=== PATIENT | female | born 1960 | race African-American/Black ===

== ENCOUNTER 2016-06-09 10:45 | Observation (INO) ==
[2016-06-09] MEDS ORDERED: 0.9 % Sodium Chloride 1,000 ML IVC ONE (11:02)
[2016-06-09] MEDS ORDERED: Folic Acid 1 MG in D5% in Water 50 ML IVPB STA (11:03)
[2016-06-09] MEDS ORDERED: Thiamine (B-1) 100 MG in D5% in Water 50 ML IVPB STA (11:03)
[2016-06-09 11:33] LABS: Eosinophils % 0.2 %; Hematocrit 29.4 % (35.3-44.9)
[2016-06-09 11:35] LABS: Basophils # 0.1 K/mcL (0.0-0.2); Immature Granulocytes % 0.6 % (0-4); Immature Platelets 11.3 % (1.1-6.1); Lymphocytes % 19.3 %; Mean Corpuscular Hemoglobin 36.1 pg (28.0-33.3); Mean Corpuscular Volume 106.1 fL (83.0-100.0); Mean Platelet Volume 12.1 fL (9.4-12.4); Monocytes # 0.8 K/mcL (0.0-1.3); Monocytes % 14.8 %; Neutrophils # 3.3 K/mcL (1.6-8.9); Nucleated Red Blood Cells 0.4 /100 WBC (0); Red Blood Count 2.77 M/mcL (3.82-4.97); Red Cell Distribution Width 14.1 % (11.5-14.5); Segmented Neutrophils % 64.1 %
[2016-06-09 11:39] LABS: INR 2.8; Prothrombin Time 31.2 Seconds (9.4-12.1)
[2016-06-09 11:42] LABS: Activated Partial Thrombo Time 42.7 Seconds (26.0-36.0)
[2016-06-09 11:49] LABS: Alanine Aminotransferase 39 Units/L (0-55); Albumin 2.1 g/dL (3.5-5.0); Albumin/Globulin Ratio 0.3 (1.1-2.2); Alkaline Phosphatase 116 Units/L (38-126); Aspartate Amino Transferase 116 Units/L (5-34); BUN/Creatinine Ratio 9 (6-26); Bilirubin,Indirect 3.9 mg/dL (0.0-1.2); Bilirubin,Total 7.9 mg/dL (0.2-1.2); Blood Urea Nitrogen 9 mg/dL (7-20); Calcium 8.7 mg/dL (8.6-10.8); Carbon Dioxide 22 mEq/L (19-29); Chloride 100 mEq/L (98-109); Globulin 6.3 g/dL (2.4-3.5); Glucose 115 mg/dL (70-99); Lipase 59 Units/L (8-78); Osmolality,Calculated 280 (280-300); Sodium 135 mEq/L (136-145); Total Protein 8.4 g/dL (6.0-8.3); eGFR For African Americans > 60 (> 60); eGFR For Non-African Americans 57 (> 60)
[2016-06-09 11:55] LABS: Platelet Count 53 K/mcL (140-400)
[2016-06-09 11:56] LABS: Platelet Estimate Decreased (Normal)
--- NOTE | 2016-06-09 12:00 | Emergency Department Note ---
Disposition Clinical Impression: Thrombocytopenia, Cholecystitis Liver cirrhosis Qualifiers: Hepatic cirrhosis type: alcoholic cirrhosis Ascites presence: with ascites Qualified Code(s): K70.31 - Alcoholic cirrhosis of liver with ascites Falls Qualifiers: Encounter type: initial encounter Qualified Code(s): W19.XXXA - Unspecified fall, initial encounter Cholelithiasis Qualifiers: Cholelithiasis location: gallbladder Cholecystitis presence: with cholecystitis Cholecystitis acuity: acute and chronic Biliary obstruction: with biliary obstruction Qualified Code(s): K80.13 - Calculus of gallbladder with acute and chronic cholecystitis with obstruction Disposition: Admitted As Inpatient Condition: Good Time of Disposition: 13:45 General Adult HPI - General Chief complaint: ED Fall Stated complaint: Gen weakness/falls Time Seen by Provider: 06/09/16 10:49 Source: patient, EMS Mode of arrival: EMS Limitations: no limitations Nursing Notes Reviewed: Yes Vital Signs Reviewed: Yes - History of Present Illness HPI Narrative: Patient presents emergency room with complaint of generalized malaise multiple falls injury to the abdomen and pain. Denies fevers chills nausea vomiting or diarrhea. Has a history of alcohol abuse and has been having increasing falls over the last several days. Onset (ago): day(s) Location: head, face, chest, back, abdomen Pain Severity: moderate Pain Scale: 9 Quality: aching, sharp Consistency: intermittent Improves with: nothing Worsens with: movement Associated symptoms: Reports: chest pain, fever/chills, loss of appetite, malaise, nausea/vomiting, weakness Treatments Prior to Arrival: none - Related Data Home Medications Medication Instructions Recorded Confirmed Vits #90/Iron Fum/FA 1 tab PO DAILY 09/29/15 06/09/16 [ Formula Tablet] Chlorhexidine Gluconate [Peridex] 15 ml MM TID 06/09/16 06/09/16 Lactulose [Enulose] 30 ml PO DAILY 06/09/16 06/09/16 Previous Rx's Medication Instructions Recorded Furosemide [Lasix] 40 mg PO DAILY 30 Days 10/01/15 Potassium Chloride 10 meq PO DAILY 30 Days 10/01/15 Propranolol [Inderal] 10 mg PO TID 30 Days 10/01/15 Rifaximin [Xifaxan] 400 mg PO BID 30 Days 10/01/15 Spironolactone [Aldactone] 50 mg PO DAILY 30 Days 10/01/15 Omeprazole Magnesium [Prilosec Otc] 40 mg PO BID 30 Days 10/04/15 Phytonadione [Mephyton] 5 mg PO DAILY #3 tablet 10/04/15 Allergies Allergy/AdvReac Type Severity Reaction Status Date / Time No Known Allergies Allergy Verified 09/29/15 15:44 All systems ED: reviewed and negative except as stated. Constitutional: Reports: fever, chills, weakness Cardiovascular: Denies: chest pain, palpitations, dyspnea on exertion Respiratory: Denies: dyspnea, wheezes Gastrointestinal: Reports: abdominal pain, nausea, vomiting. Denies: diarrhea Genitourinary: Denies: dysuria, frequency Musculoskeletal: Reports: back pain, neck pain, myalgia Neurological: Reports: headache Endocrine: Reports: fatigue Past Medical History - Past Medical History Attestation: Yes The following information was validated with the patient. Source: patient Medical history: Reports: cirrhosis, GERD, hepatitis, liver disease Surgical history: Reports: other (EGD and colonoscopy completed on 09/19/2015) Psychiatric history: Reports: no psych history - Social History Smoking Status: Current every day smoker Smokeless Tobacco Status: No Alcohol use: Reports: heavy Drug use: Reports: none Physical Exam - General Limitations: no limitations General appearance: alert - Head Head exam: atraumatic, normocephalic, normal inspection - Neck Neck exam: Present: normal inspection, full ROM, trachea midline - Chest Chest inspection: Present: normal inspection, symmetric chest wall rise. Absent : tenderness - Respiratory Respiratory exam: Present: normal lung sounds bilaterally. Absent: respiratory distress, wheezes, stridor, accessory muscle use - Cardiovascular Cardiovascular exam: Present: regular rate, normal rhythm, normal heart sounds - Abdominal Exam Abdominal exam: Present: soft, tenderness (Tenderness diffusely across the upper abdomen and the back bilaterally.). Absent: distention, guarding, rebound , rigidity, Watkins's sign, Rovsing's sign, tenderness at McBurney's Point - Extremities Exam Extremities exam: Present: normal inspection, full ROM, pedal edema (Lateral lower extremity edema to the knee.). Absent: tenderness, calf tenderness - Back Exam Back exam: Present: normal inspection, CVA tenderness (R), CVA tenderness (L) ( Bilateral CVA tenderness no signs of bruising or injury) - Neurological Exam Neurological exam: Present: alert, oriented X3, CN II-XII intact - Psychiatric Psychiatric exam: Present: depressed - Skin Skin exam: Present: warm, dry, intact, normal color Course Course Narrative: Patient seen and examined the time of arrival. See history of present illness. 55-year-old female presents by EMS today for complaint of multiple falls generalized weakness and difficulty with walking and abdominal pain. Patient is a known alcoholic who has been drinking since age of 17 also has hepatitis C and hepatitis B. Patient is showing signs of a staggering gait on presentation. She denies being intoxicated and time. Vital signs are reviewed and are stable. Concern is noted for alcohol-induced encephalopathy. Patient had ammonia basic labs includes urinalysis completed this point. CT of the head as well as mental facial bones along with the abdomen ordered this time. Fluid hydration given nausea medication given, thiamine and folic acid. 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 Physical exam head is atraumatic she has bruising to the left orbital area that is old. Pupils are equal round reactive to light. Oropharynx is pain no tenderness over the jaw or mastoid processes bilaterally. No midline tenderness to cervical thoracic or lumbar spine. No bruising on the posterior aspect of the back of the lower abdomen. Anterior aspect of the chest wall was evaluated this or deformity. Lungs are clear. Abdomen soft nontender nondistended. Moves all 4 extremities. Has pitting edema in the bilateral lower extremities. Disposition pending treatment course and evaluation. - Reevaluation(s) Reevaluation #1: Patient's labs reviewed. She is chronically anemic her platelet count is about half of what it was just recently. Patient has a INR of 2.8 secondary to her liver failure. Total bilirubin is elevated up to 7.[address] of the abdomen does confirm an obstructed stone with dilation and pericholecystic fluid buildup on the imaging study. This is consistent with possible cholecystitis. Patient was placed out to the on-call surgeon. We discussed and reviewed the patient's presentation. Dr. polo does not feel the patient is a good surgical candidate she would benefit more from a ercp to remove the stone. Patient otherwise has negative CT of the head and imaging of the chest. EKG shows sinus rhythm. Troponin other labs are normal. Patient this point will be admitted to the hospitalist for definitive management and course. IV antibiotics including Zosyn ordered and will be provided here in the emergency room. Ammonia level is normal. Thiamine and folate were also given. Patient stable and comfortable in the bed she agrees with the admission process and will evaluated here as an inpatient. Patient postop to the hospitalist at this time Time: 13:43 Reevaluation #2: Patient was reviewed with the hospitalist nurse practitioner Noemi. Review the patient's presentations in his medical history. No other recommendations this time. Admission process to be completed for appears to be nonsurgical cholecystitis along with liver failure and alcohol abuse. She will have CIWA protocol will be started from the hospital. Patient stable and resting comfortably otherwise. Time: 13:56 Vital Signs Temperature 99.2 F 06/09/16 10:48 Pulse Rate 95 06/09/16 10:48 Respiratory Rate 16 06/09/16 10:48 Blood Pressure 152/77 06/09/16 10:48 O2 Sat by Pulse Oximetry 100 06/09/16 10:48 Temperature 99.2 F 06/09/16 17:26 Pulse Rate 76 06/09/16 17:26 Respiratory Rate 14 06/09/16 17:26 Blood Pressure 150/81 06/09/16 17:26 O2 Sat by Pulse Oximetry 97 06/09/16 17:26 Oxygen Delivery Oxygen Delivery Room Air Medical Decision Making - MDM Narrative Medical decision making narrative: Frequent falls, weakness, hyperbilirubinemia, jaundice, cholecystitis with cholelithiasis - Medical Records Medical records reviewed: Yes I reviewed the patient's medical records. - Lab Data Lab results reviewed: Yes I reviewed the patient's lab results. Result diagrams: 06/09/16 11:24 06/09/16 11:24 Lab Results 06/09/16 06/09/16 06/09/16 Range/Units 11:24 11:24 11:24 WBC 5.1 (4.3-11.1) K/mcL RBC 2.77 L (3.82-4.97) M/mcL Hgb 10.0 L (11.5-15.4) g/dL Hct 29.4 L (35.3-44.9) % MCV 106.1 H (83.0-100.0) fL MCH 36.1 H (28.0-33.3) pg MCHC 34.0 (31.6-35.5) g/dL RDW 14.1 (11.5-14.5) % Plt Count 53 L (140-400) K/mcL MPV 12.1 (9.4-12.4) fL Immature Gran % 0.6 (0-4) % Seg Neutrophils % 64.1 % Lymphocytes % 19.3 % Monocytes % 14.8 % Eosinophils % 0.2 % Basophils % 1.0 % Neutrophils # 3.3 (1.6-8.9) K/mcL Lymphocytes # 1.0 (0.6-4.6) K/mcL Monocytes # 0.8 (0.0-1.3) K/mcL Eosinophils # 0.0 (0.0-0.6) K/mcL Basophils # 0.1 (0.0-0.2) K/mcL Nucleated RBCs/100 WBC 0.4 H (0) /100 WBC Platelet Estimate Decreased L (Normal) Immature Plt Fraction 11.3 H (1.1-6.1) % PT 31.2 H (9.4-12.1) Seconds INR 2.8 APTT 42.7 H (26.0-36.0) Seconds Sodium 135 L (136-145) mEq/L Potassium 3.0 L (3.5-4.5) mEq/L Chloride 100 (98-109) mEq/L Carbon Dioxide 22 (19-29) mEq/L BUN 9 (7-20) mg/dL Creatinine 1.01 (0.57-1.11) mg/dL Est GFR ( Amer) > 60 (> 60) Est GFR (Non-Af Amer) 57 L (> 60) BUN/Creatinine Ratio 9 (6-26) Glucose 115 H (70-99) mg/dL Calculated Osmolality 280 (280-300) Calcium 8.7 (8.6-10.8) mg/dL Total Bilirubin 7.9 H (0.2-1.2) mg/dL Direct Bilirubin 4.0 H (0.0-0.5) mg/dL Indirect Bilirubin 3.9 H (0.0-1.2) mg/dL AST 116 H (5-34) Units/L ALT 39 (0-55) Units/L Alkaline Phosphatase 116 (38-126) Units/L Ammonia (18-72) mcmol/L Troponin I (0-0.03) ng/mL B-Natriuretic Peptide (0-100) pg/mL Serum Total Protein 8.4 H (6.0-8.3) g/dL Albumin 2.1 L (3.5-5.0) g/dL Globulin 6.3 H (2.4-3.5) g/dL Albumin/Globulin Ratio 0.3 L (1.1-2.2) Lipase 59 (8-78) Units/L 06/09/16 06/09/16 06/09/16 Range/Units 11:24 11:24 11:24 WBC (4.3-11.1) K/mcL RBC (3.82-4.97) M/mcL Hgb (11.5-15.4) g/dL Hct (35.3-44.9) % MCV (83.0-100.0) fL MCH (28.0-33.3) pg MCHC (31.6-35.5) g/dL RDW (11.5-14.5) % Plt Count (140-400) K/mcL MPV (9.4-12.4) fL Immature Gran % (0-4) % Seg Neutrophils % % Lymphocytes % % Monocytes % % Eosinophils % % Basophils % % Neutrophils # (1.6-8.9) K/mcL Lymphocytes # (0.6-4.6) K/mcL Monocytes # (0.0-1.3) K/mcL Eosinophils # (0.0-0.6) K/mcL Basophils # (0.0-0.2) K/mcL Nucleated RBCs/100 WBC (0) /100 WBC Platelet Estimate (Normal) Immature Plt Fraction (1.1-6.1) % PT (9.4-12.1) Seconds INR APTT (26.0-36.0) Seconds Sodium (136-145) mEq/L Potassium (3.5-4.5) mEq/L Chloride (98-109) mEq/L Carbon Dioxide (19-29) mEq/L BUN (7-20) mg/dL Creatinine (0.57-1.11) mg/dL Est GFR ( Amer) (> 60) Est GFR (Non-Af Amer) (> 60) BUN/Creatinine Ratio (6-26) Glucose (70-99) mg/dL Calculated Osmolality (280-300) Calcium (8.6-10.8) mg/dL Total Bilirubin (0.2-1.2) mg/dL Direct Bilirubin (0.0-0.5) mg/dL Indirect Bilirubin (0.0-1.2) mg/dL AST (5-34) Units/L ALT (0-55) Units/L Alkaline Phosphatase (38-126) Units/L Ammonia 39 (18-72) mcmol/L Troponin I 0.03 (0-0.03) ng/mL B-Natriuretic Peptide 281 H (0-100) pg/mL Serum Total Protein (6.0-8.3) g/dL Albumin (3.5-5.0) g/dL Globulin (2.4-3.5) g/dL Albumin/Globulin Ratio (1.1-2.2) Lipase (8-78) Units/L - Radiology Data Radiology results reviewed: Yes I reviewed the patient's radiology results. CT of the head is negative for acute pathology chest x-ray stable. CT of the abdomen does confirm right upper quadrant inflammation pericholecystic fluid and inflammation with dilation and stone in the duct of the gallbladder. - EKG Data EKG #1 EKG attestation: Yes I reviewed and interpreted this EKG. EKG shows normal: sinus rhythm, axis, ST-T waves Rate: normal [place]/QRS: LBBB When compared to previous EKG there are: no significant changes Interpretation: no acute changes, unchanged when compared to prior tracing (date ) (09/28 ) Critical Care Time Critical Care Time: Yes Total Critical Care Time: 45 Attestation: Independent of procedures and medical intervention Attestation Statement - Attestation Attestation: I, Syed Guardado, examined this patient and my medical decision-making was reviewed with the TRAVELING NURSE/PA/Advanced Practice Nurse/Resident Physician. I agree with the documented findings, disposition and treatment plan as described except to the extent set forth below. 5-year-old female presents with concerns of right upper quadrant abdominal pain and right lateral chest pain. Patient has had multiple falls over the past couple weeks. She is a chronic alcoholic since age of 17. Patient states that she has had chronic jaundice. Denies fever, chills, chest pain, shortness of breath. Pain in the right upper quadrant is sharp, stabbing, worse with palpation and movement. On physical exam the patient has ecchymosis surrounding left periorbital area. When trying to ambulate from the stretcher to the bed patient is very unstable although she was able to place weight on bilateral lower extremities. Patient has significant elevation of her bilirubin. CT of the abdomen shows possible acute cholecystitis. Patient states that she has had issues with her gallbladder in the past however she was deemed to not be a surgical candidate. Resident spoke with Dr. Polo who for the patient be admitted to the hospitalist and states that she would more likely be a candidate for ERCP with stone removal. Patient will be admitted the hospital for further care and evaluation.
[2016-06-09] MEDS ORDERED: Piperacillin/Tazobactam 3.375 GM in D5% in Water (Mini-Bag+) 100 ML IVPB ONE (13:32)
[2016-06-09] MEDS ORDERED: Naloxone 0.4 MG/ML INJ IVP PRN (14:56)
[2016-06-09] MEDS ORDERED: *HR* LORazepam 2 MG/ML VIAL IVP PRN ×3 (14:56)
[2016-06-09] MEDS ORDERED: Potassium Chloride 40 MEQ, Lidocaine 1% 2 ML in D5% in Water 500 ML IVPB ONE (15:05)
--- NOTE | 2016-06-09 15:26 | Internal Med History&Physical ---
<Noemi Ch M - Last Filed: 06/09/16 15:54> Date of Encounter: 06/09/16 Time of Encounter: 15:21 Assessment and Plan (1) Cholecystitis Current visit: Yes Status: Acute Patient with RUQ pain. CT Abd/pelvis showed cholelithiasis and distention of the gallbladder with some thickening and pericholecystic fluid, acute cholecystitis should be considered. GI consulted, spoke with Dr. Mcconnell who requested MRCP MRCP ordered NPO except meds and ice chips. (2) ETOH abuse Current visit: No Status: Chronic Patient continues to drink beer daily, about 48 oz daily. She has cirrhosis, hepatic encephalopathy, ESLD, and continues to drink despite these consequences. Discussed quitting, patient interested, but not sure she can. Offered encouragement. [facility] protocol for alcohol withdrawal SWK consult (3) Hypokalemia Current visit: No Status: Acute Potassium of 3.0 40mEq of Potassium IVPB ordered recheck chemistry tomorrow. (4) Coagulopathy Current visit: No Status: Acute Patient with synthetic dysfunction from her ESLD, with thrombocytopenia, Plt of 53 and INR of 2.8. Patient denies any bloody stools, bloody urine or other bleeding episodes. Monitor for bleeding. Continue home dose of Mephyton. (5) Falls Current visit: Yes Status: Acute Patient with reported unsteady gait and falls. Reports genaralized weakness. cT of her head showed subcutaneous soft tissue swelling at left periorbital and premalar regions, no acute intracranial abnormality. Her unsteady gait and falls are likely sequela of her alcohol use and hepatic encephalopathy. Will get orthostatic vital signs. Qualifiers: Encounter type: initial encounter Qualified Code(s): W19.XXXA - Unspecified fall, initial encounter (6) Liver cirrhosis Current visit: Yes Status: Chronic Patient with Hep b, Hep C and aloholic cirrhosis, continues to drink daily. Sequela of ESLD evident with small ascites seen on CT, as well as coagulapathy wtih thrombocytopenia with Plt of 53, INR of 2.8. Current MELD score of 27. Continue Lactulose and Xifaxin for hepatic encephalopathy Continue spiranolactone and lasix for ascites, increase spiranolactone to 100mg and give lasix IVP. Continue Mephyton for coagulopathy. Qualifiers: Hepatic cirrhosis type: alcoholic cirrhosis Ascites presence: with ascites Qualified Code(s): K70.31 - Alcoholic cirrhosis of liver with ascites (7) Pleural effusion Current visit: Yes Status: Acute Patient complains of shortness of breath. CXR shows left pleural effusion. Increase diuretics with Lasix 40mg IVP BID and spiranolactone 100mg. Titrate O2 to maintain oxygen saturation > 92%. (8) Tobacco abuse Current visit: No Status: Acute Patient smokes 1 pack per week. Discussed smoking cessation. Not interested in quitting at this time. (9) DVT prophylaxis Current visit: No Status: Acute ambulate with assistance anti-embolic stockings Patient with INR of 2.8 due to ESLD induced coagulopathy. Pharmacologic prophylaxis is contraindicated. Internal Medicine - H&P: HPI Chief complaint: RUQ pain, falls Admitted From: Emergency Dept Plans for Post Hospital Care: Home History of present illness: Ms. Scott is a 55 year old female with alcoholic cirrhosis, hepatitis B and C, acid reflux, who presented to the emergency department today with complaints of weakness, falls, and right upper quadrant pain. Patient reports that she passed out and fell in the street on Thursday and has bruises as a result of that. She reports she has been feeling weak lately. Her right upper quadrant started hurting on and is planned progressively getting worse, she describes the pain as sharp, and stabbing, and aching. She reports lightheadedness and dizziness, as well as some shortness of breath. Denies any headache, chest pain, palpitations, fever. She reports occasional chills and sweats, she reports diarrhea yesterday, though she does take lactulose for her hepatic encephalopathy. Evaluation in the emergency department was significant for thrombocytopenia with platelets of 53, hyperkalemia with potassium of 3.0, elevated coags including INR of 2.8, elevated bilirubin of 7.9, which is consistent with previous baseline in January. Chest x-ray showed left pleural effusion with atelectasis and/or infiltrate. To the head showed subcutaneous soft tissue swelling at the left periorbital and pre-malar regions but no acute intracranial abnormalities. CT of abdomen and pelvis show cholelithiasis and distention of the gallbladder with some thickening and pericholecystic fluid, acute cholecystitis should be considered. Surgery was consult it but felt patient was too high risk and not a surgical candidate. Exam, patient has scleral icterus, is alert and oriented, in no acute distress. Heart has regular rate and rhythm. Lungs are clear bilaterally with diminished sounds in the left base. Abdomen is acutely tender in the right upper quadrant. Past Med Surg Social Fam HX - Past Medical History Medical history: cirrhosis, GERD, hepatitis, liver disease Psychiatric history: no psych history - Past Surgical History Surgical History: other (EGD and colonoscopy completed on 09/19/2015) - Social History Smoking Status: Current every day smoker Smokeless Tobacco Status: No Alcohol use: heavy Drug use: none - Family History Mother Living Status: Still Living Hx Family Cardiac Disorders: Yes Hx Family Cancer: Yes Hx Family Endocrine Disorder: Yes (diabetes) Father Living Status: Still Living Hx Family Cancer: Yes Internal Medicine - H&P: Meds Vits #90/Iron Fum/FA [ Formula Tablet] 1 tab PO DAILY 09/29/15 [History] Furosemide [Lasix] 40 mg PO DAILY 30 Days 10/01/15 [Rx] Potassium Chloride 10 meq PO DAILY 30 Days 10/01/15 [Rx] Propranolol [Inderal] 10 mg PO TID 30 Days 10/01/15 [Rx] Rifaximin [Xifaxan] 400 mg PO BID 30 Days 10/01/15 [Rx] Spironolactone [Aldactone] 50 mg PO DAILY 30 Days 10/01/15 [Rx] Omeprazole Magnesium [Prilosec Otc] 40 mg PO BID 30 Days 10/04/15 [Rx] Phytonadione [Mephyton] 5 mg PO DAILY #3 tablet 10/04/15 [Rx] Chlorhexidine Gluconate [Peridex] 15 ml MM TID 06/09/16 [History] Lactulose [Enulose] 30 ml PO DAILY 06/09/16 [History] Allergies No Known Allergies Allergy (Verified 09/29/15 15:44) All Systems PM: A 10-system review of systems was performed and is negative for pertinent findings except as documented above in the HPI. - Constitutional Constitutional: chills, night sweats, weakness, no fever(s) - EENT Eyes: no change in vision, no discharge, no pain, no photophobia Ears: no ear discharge, no ear pain, no tinnitus Nose, mouth and throat: no dysphagia, no nasal discharge, no neck pain, no sore throat - Cardiovascular Cardiovascular ROS IM: dyspnea, lightheadedness, no chest pain, no diaphoresis, no palpitations, no syncope - Respiratory Respiratory: dyspnea, no cough, no wheezing, no excessive phlegm production - Gastrointestinal Gastrointestinal: abdominal pain, diarrhea, no hematemesis, no hematochezia, no melena, no nausea, no vomiting - Genitourinary Genitourinary: no change in urinary stream, no dysuria, no flank pain, no hematuria - Musculoskeletal Musculoskeletal ROS IM: no numbness, no tingling - Integumentary Integumentary IM: no rash, no unusual bruising - Neurological Neurological ROS: no confusion, no convulsions, no focal weakness, no numbness, no tingling, no tremor(s) - Hematologic/Lymphatic Hematologic/Lymphatic: easy bleeding, easy bruising - Constitutional Vitals: Temp Pulse Resp BP Pulse Ox 99.2 F 51 16 140/71 98 06/09/16 10:48 06/09/16 15:06 06/09/16 15:07 06/09/16 15:07 06/09/16 15:06 General appearance: Present: A&O X 3, pleasant, no acute distress - Head Head exam: Present: normocephalic - Eye Eye exam: Present: periorbital swelling (left), periorbital tenderness (left), PERRL, scleral icterus, conjuntiva pink Pupils: Present: PERRL Additional comments: Left periorbital ecchymosis - Neck Neck exam general surgery: Present: supple, trachea midline. Absent: lymphadenopathy - Respiratory Respiratory exam: Present: CTAB. Absent: accessory muscle use, rales, rhonchi, wheezes - Cardiovascular Cardiovascular exam: Present: RRR, +S1, +S2, systolic murmur. Absent: diastolic murmur, gallop, rubs - GI/Abdominal GI/Abdominal exam: Present: normal bowel sounds, soft, tenderness (RUQ), no peritoneal signs. Absent: distended - Extremities Exam Extremities exam: Present: pedal edema (+1 BLE edema), warm, radial pulses palpable and symetrical. Absent: calf tenderness, cyanotic - Neurological Exam Neurological exam: Present: CN II-XII intact, oriented X3, no focal deficits. Absent: facial droop, speech deficit - Skin Skin exam: Present: dry, intact Internal Med - H&P Results - Labs CBC & Chem 7: 06/09/16 11:24 06/09/16 11:24 Labs: All Lab Results (24 Hours) 06/09/16 06/09/16 06/09/16 Range/Units 11:24 11:24 11:24 WBC 5.1 (4.3-11.1) K/mcL RBC 2.77 L (3.82-4.97) M/mcL Hgb 10.0 L (11.5-15.4) g/dL Hct 29.4 L (35.3-44.9) % MCV 106.1 H (83.0-100.0) fL MCH 36.1 H (28.0-33.3) pg MCHC 34.0 (31.6-35.5) g/dL RDW 14.1 (11.5-14.5) % Plt Count 53 L (140-400) K/mcL MPV 12.1 (9.4-12.4) fL Immature Gran % 0.6 (0-4) % Seg Neutrophils % 64.1 % Lymphocytes % 19.3 % Monocytes % 14.8 % Eosinophils % 0.2 % Basophils % 1.0 % Neutrophils # 3.3 (1.6-8.9) K/mcL Lymphocytes # 1.0 (0.6-4.6) K/mcL Monocytes # 0.8 (0.0-1.3) K/mcL Eosinophils # 0.0 (0.0-0.6) K/mcL Basophils # 0.1 (0.0-0.2) K/mcL Nucleated RBCs/100 WBC 0.4 H (0) /100 WBC Platelet Estimate Decreased L (Normal) Immature Plt Fraction 11.3 H (1.1-6.1) % PT 31.2 H (9.4-12.1) Seconds INR 2.8 APTT 42.7 H (26.0-36.0) Seconds Sodium 135 L (136-145) mEq/L Potassium 3.0 L (3.5-4.5) mEq/L Chloride 100 (98-109) mEq/L Carbon Dioxide 22 (19-29) mEq/L BUN 9 (7-20) mg/dL Creatinine 1.01 (0.57-1.11) mg/dL Est GFR ( Amer) > 60 (> 60) Est GFR (Non-Af Amer) 57 L (> 60) BUN/Creatinine Ratio 9 (6-26) Glucose 115 H (70-99) mg/dL Calculated Osmolality 280 (280-300) Calcium 8.7 (8.6-10.8) mg/dL Total Bilirubin 7.9 H (0.2-1.2) mg/dL Direct Bilirubin 4.0 H (0.0-0.5) mg/dL Indirect Bilirubin 3.9 H (0.0-1.2) mg/dL AST 116 H (5-34) Units/L ALT 39 (0-55) Units/L Alkaline Phosphatase 116 (38-126) Units/L Ammonia (18-72) mcmol/L Troponin I (0-0.03) ng/mL B-Natriuretic Peptide (0-100) pg/mL Serum Total Protein 8.4 H (6.0-8.3) g/dL Albumin 2.1 L (3.5-5.0) g/dL Globulin 6.3 H (2.4-3.5) g/dL Albumin/Globulin Ratio 0.3 L (1.1-2.2) Lipase 59 (8-78) Units/L 06/09/16 06/09/16 06/09/16 Range/Units 11:24 11:24 11:24 WBC (4.3-11.1) K/mcL RBC (3.82-4.97) M/mcL Hgb (11.5-15.4) g/dL Hct (35.3-44.9) % MCV (83.0-100.0) fL MCH (28.0-33.3) pg MCHC (31.6-35.5) g/dL RDW (11.5-14.5) % Plt Count (140-400) K/mcL MPV (9.4-12.4) fL Immature Gran % (0-4) % Seg Neutrophils % % Lymphocytes % % Monocytes % % Eosinophils % % Basophils % % Neutrophils # (1.6-8.9) K/mcL Lymphocytes # (0.6-4.6) K/mcL Monocytes # (0.0-1.3) K/mcL Eosinophils # (0.0-0.6) K/mcL Basophils # (0.0-0.2) K/mcL Nucleated RBCs/100 WBC (0) /100 WBC Platelet Estimate (Normal) Immature Plt Fraction (1.1-6.1) % PT (9.4-12.1) Seconds INR APTT (26.0-36.0) Seconds Sodium (136-145) mEq/L Potassium (3.5-4.5) mEq/L Chloride (98-109) mEq/L Carbon Dioxide (19-29) mEq/L BUN (7-20) mg/dL Creatinine (0.57-1.11) mg/dL Est GFR ( Amer) (> 60) Est GFR (Non-Af Amer) (> 60) BUN/Creatinine Ratio (6-26) Glucose (70-99) mg/dL Calculated Osmolality (280-300) Calcium (8.6-10.8) mg/dL Total Bilirubin (0.2-1.2) mg/dL Direct Bilirubin (0.0-0.5) mg/dL Indirect Bilirubin (0.0-1.2) mg/dL AST (5-34) Units/L ALT (0-55) Units/L Alkaline Phosphatase (38-126) Units/L Ammonia 39 (18-72) mcmol/L Troponin I 0.03 (0-0.03) ng/mL B-Natriuretic Peptide 281 H (0-100) pg/mL Serum Total Protein (6.0-8.3) g/dL Albumin (3.5-5.0) g/dL Globulin (2.4-3.5) g/dL Albumin/Globulin Ratio (1.1-2.2) Lipase (8-78) Units/L - Diagnostic Studies CT scan - abdomen Additional comments: Abdomen/Pelvis CT 06/09/16 11:25 IMPRESSION: 1. No evidence of major organ injury or active bleeding. 2. Small left pleural effusion and left lower lobe atelectatic changes. 3. Liver cirrhosis and nodularity but no focal disease. 4. Cholelithiasis and distention of the gallbladder with some thickening and pericholecystic fluid. Acute cholecystitis should be considered. 5. Ascites mostly in the pelvis which is relatively mild. D/ / 06/09/2016 13:24:23 Leti Cosme MD / analy Interpreting Provider: Leti Cosme MD CT scan - head Additional comments: Head CT 06/09/16 11:03 IMPRESSION: Subcutaneous soft tissue swelling at the left periorbital and left premalar regions. No acute intracranial abnormality. Minimal parenchymal volume loss. Minimal chronic microvascular disease. D/ / Grant Chase MD / Grant Chase MD Interpreting Provider: Grant Chase MD Chest x-ray Additional comments: Chest X-Ray 06/09/16 12:18 IMPRESSION: 1. Left pleural effusion with associated atelectasis and/or infiltrate. D/ / Jaquan Gunderson MD / Jaquan Gunderson MD Interpreting Provider: Jaquan Gunderson MD <Rosales Momin T - Last Filed: 06/09/16 17:27> Date of Encounter: 06/09/16 Internal Medicine - H&P: HPI History of present illness: Ms. Scott is a 55 year old female All Systems PM: A 10-system review of systems was performed and is negative for pertinent findings except as documented above in the HPI. - Constitutional Vitals: Temp Pulse Resp BP Pulse Ox 99.2 F 77 16 136/72 99 06/09/16 10:48 06/09/16 16:46 06/09/16 16:46 06/09/16 16:46 06/09/16 16:46 Internal Med - H&P Results - Labs CBC & Chem 7: 06/09/16 11:24 06/09/16 11:24 - Attending Attestation Seen, EMR reviewed and plan of care discussed with ADRIANA Oliva 55 F Patient with Hep b, Hep C and decompensated alcoholic cirrhosis with portal HTN , coagulopathy, continues to drink daily. She presented with RUQ pain and recurrent falls Exam reveals chronically ill-looking, jaundiced, pale, disheveled, with orbital ecchymoses that is resolving, abdomen with RUQ tenderness, no murphys. No leg edema Labs and Imaging significant for hyperbilirubinemia, INR 2.8, hypokalemia, Hb at baseline, Pancytopenia, CXR with L pleural effusion, Abd CT with probable acute cholecystitis Assessment/Plan: Acute cholecystitis, alcohol abuse, ESLD with MELD score of 21 , Coagulopathy , Hypokalemia, Pleural effusion Increase diuretics, Obtain MRCP, consult GI, replace K, Start on Zosyn, CIWA protocol, continue daily Vitamin K, no current evidence of bleeding High risk patient with poor prognosis, poor surgical candidate Rest of details as in ADRIANA Oliva's documentation
[2016-06-09] MEDS: Lactulose Oral Soln 20 GM/30 ML UDC PO SCH (18:31)
[2016-06-09] MEDS: Prenatal Vit/FA 1 EACH TABLET PO SCH (18:31)
[2016-06-09] MEDS: *HR* Phytonadione 5 MG TABLET PO SCH (18:33)
[2016-06-09] MEDS: Furosemide 40 MG/4 ML VIAL IVP SCH (21:29)
[2016-06-10 05:45] LABS: INR 3.2; Prothrombin Time 35.8 Seconds (9.4-12.1)
[2016-06-10 05:48] LABS: Activated Partial Thrombo Time 49.5 Seconds (26.0-36.0)
[2016-06-10 05:56] LABS: Immature Granulocytes % 0.5 % (0-4); Mean Corpuscular Volume 105.4 fL (83.0-100.0)
[2016-06-10 05:57] LABS: Basophils # 0.1 K/mcL (0.0-0.2); Basophils % 0.9 %; Eosinophils # 0.1 K/mcL (0.0-0.6); Eosinophils % 0.8 %; Hematocrit 25.3 % (35.3-44.9); Hemoglobin 8.7 g/dL (11.5-15.4); Immature Platelets 12.1 % (1.1-6.1); Lymphocytes # 1.8 K/mcL (0.6-4.6); Mean Corpuscular HGB Conc 34.4 g/dL (31.6-35.5); Mean Corpuscular Hemoglobin 36.3 pg (28.0-33.3); Mean Platelet Volume 12.3 fL (9.4-12.4); Monocytes # 1.2 K/mcL (0.0-1.3); Monocytes % 18.7 %; Neutrophils # 3.2 K/mcL (1.6-8.9); Nucleated Red Blood Cells 0.5 /100 WBC (0); Red Cell Distribution Width 14.3 % (11.5-14.5); Segmented Neutrophils % 51.1 %
[2016-06-10 05:58] LABS: Platelet Count 49 K/mcL (140-400)
[2016-06-10 06:04] LABS: BUN/Creatinine Ratio 11 (6-26); Blood Urea Nitrogen 11 mg/dL (7-20); Calcium 8.1 mg/dL (8.6-10.8); Carbon Dioxide 22 mEq/L (19-29); Chloride 103 mEq/L (98-109); Glucose 80 mg/dL (70-99); Magnesium < 0.7 mg/dL (1.6-2.6); Osmolality,Calculated 278 (280-300); Phosphorous 2.1 mg/dL (2.3-4.7); Potassium 2.9 mEq/L (3.5-4.5); Sodium 135 mEq/L (136-145); eGFR For African Americans > 60 (> 60); eGFR For Non-African Americans 59 (> 60)
[2016-06-10 06:56] LABS: Platelet Estimate Decreased (Normal); Polychromasia 1+ (Not Present)
[2016-06-10] MEDS ORDERED: Magnesium Sulfate 2 GM in D5% in Water 100 ML IVPB STA (07:36)
[2016-06-10] MEDS: *HR* Phytonadione 5 MG TABLET PO SCH (08:32)
[2016-06-10] MEDS: Prenatal Vit/FA 1 EACH TABLET PO SCH (08:32)
[2016-06-10] MEDS: Lactulose Oral Soln 20 GM/30 ML UDC PO SCH ×3 (08:33→22:30)
[2016-06-10] MEDS: Furosemide 40 MG/4 ML VIAL IVP SCH (08:33)
[2016-06-10] MEDS: Pantoprazole 40 MG VIAL IVP SCH (08:33)
--- NOTE | 2016-06-10 09:13 | Gastroenterology Consult Note ---
<Belinda Inman - Last Filed: 06/10/16 11:20> Date of Encounter: 06/10/16 Time of Encounter: 10:45 - Assessment and plan (1) Alcoholic cirrhosis of liver with ascites Current Visit: Yes Status: Chronic Assessment and plan: MELD Na 28, MELD original 27, Edwin-Ramachandran Class C, discriminant function 116.9. Patient with advanced liver disease, continues to drink, underlying Hep C virus (genotype 1a/1b, viral load < 6 mil) R/O underlying infection (UA and blood cultures x 2), if negative - patient will require steroid therapy. Continue diuretics. Small amount of ascites noted on imaging, no evidence of SBP, vital signs stable, normal WBC. Small R/L pleural effusions noted on imaging. No lesions on imaging, needs mayra of afp. Last EGD negative for varices in 08/2015. Significant hyperbilirubinemia - no evidence of dilated CBD or intrahepatic/ extrahepatic dilation. Likely 2ndary to cirrhosis. (2) Hepatic encephalopathy Current Visit: Yes Status: Chronic Assessment and plan: Increase rifaximin to 400 mg po tid during hospital stay (OTPT dosage should be 550 mg po bid), titrate lactulose to 2-4 BMs daily. Check zinc, supplement if necessary. (3) Pleural effusion Current Visit: Yes Status: Acute Assessment and plan: On diuretics, continue to monitor. (4) Coagulopathy Current Visit: No Status: Chronic Assessment and plan: Patient has received 2 units FFP and is on oral vitamin K supplement (5 mg po daily) Plts < 50 (5) Hepatitis C Current Visit: Yes Status: Chronic Assessment and plan: genotype 1a/1b; viral load < 6 mil (08/2015) Qualifiers: Viral hepatitis chronicity: chronic Hepatic coma status: without hepatic coma Qualified Code(s): B18.2 - Chronic viral hepatitis C (6) Abdominal pain Current Visit: Yes Status: Acute Assessment and plan: epigastric and RUQ abd pain apparent since her fall, prior to that she denies discomfort. Evidence of gallstones on imaging, no evidence of obstruction on CT or MRI, no biliary dilation. Qualifiers: Abdominal location: epigastric Qualified Code(s): R10.13 - Epigastric pain - Time Spent With Patient Total time spent is greater than 50% in coordination of care (as documented) at patient's floor/unit and/or counseling patient: less than 15 minutes GI History of Present Illness - Data of Consult Patient: known to practice within the last 3 years Consult date: 06/10/16 Requesting Physician: Jay Mcclain MD - Consult Narrative Reason for consult: Cirrhosis History of present illness: Ms. Scott is a 55 year old female with alcoholic cirrhosis, chronic hepatitis C, acid reflux, who presented to the emergency department yesterday with complaints of weakness, falls, and right upper quadrant pain. Patient reports that she passed out and fell in the street on Thursday and has bruises as a result of that. She reports she has been feeling weak lately. Her right upper quadrant started hurting on and is progressively getting worse, she describes the pain as sharp, and stabbing, and aching. She reports lightheadedness and dizziness, as well as some shortness of breath. Denies any headache, chest pain, palpitations, fever. She reports occasional chills and sweats, she reports diarrhea yesterday, though she does take lactulose for her hepatic encephalopathy and moves her bowel up to 6x daily. Chest x-ray showed left pleural effusion with atelectasis and/or infiltrate. To the head showed subcutaneous soft tissue swelling at the left periorbital and pre-malar regions but no acute intracranial abnormalities. CT of abdomen and pelvis show cholelithiasis and distention of the gallbladder with some thickening and pericholecystic fluid, acute cholecystitis should be considered, mild ascites. Surgery was consulted but felt patient was too high risk and not a surgical candidate. Patient has been drinking etoh for many years, she states she has ' cut back' in recent months to 2-4 beers 3x a week. She complains of feeling very wobbly and multiple falls in recent weeks/months. She denied increase in acid reflux symptoms, N/V or difficulty swallowing. Denies black stool or BRBPR. Vital signs are currently stable. Colonoscopy: 08/2015 - [facility] - tubular adenoma, repeat due 2020 EGD: 08/2015 - [facility] - wnl Past Med Surg Social Fam HX - Past Medical History Medical history: cirrhosis, GERD, hepatitis, liver disease Psychiatric history: no psych history - Past Surgical History Surgical History: other - Social History Smoking Status: Current every day smoker Smokeless Tobacco Status: No Alcohol use: heavy Drug use: none - Family History Mother Living Status: Still Living Hx Family Cardiac Disorders: Yes Hx Family Cancer: Yes Hx Family Endocrine Disorder: Yes (diabetes) Father Living Status: Still Living Hx Family Cancer: Yes - Gastrointestinal NSAID use: None Anticoagulation Use: None Number of BM Per Day: 2-6 Gastrointestinal: Present: abdominal pain - Constitutional Constitutional: anorexia, fatigue - EENT Eyes: Yellow Discoloration Ears: Present: as per HPI Additional Comment: mouth sore due to dental abscess/missing teeth - Cardiovascular Cardiovascular ROS: Present: as per HPI - Respiratory Respiratory IM: Present: dyspnea - Neurological ROS Neurological GI: Present: frequent falls, weakness - Hematologic/Lymphatic Hematologic/Lymphatic pediatric: Present: as per HPI - Musculoskeletal Musculoskeletal ROS GI: Present: as per HPI - Integumentary Integumentary GI: Present: as per HPI - Psychiatric ROS Psychiatric GI: Present: as per HPI - Endocrine Endocrine IM: Present: as per HPI - Constitutional Vitals: Temp Pulse Resp BP Pulse Ox 98.8 F 75 16 130/69 93 06/10/16 06:38 06/10/16 06:38 06/10/16 06:38 06/10/16 06:38 06/10/16 06:38 General appearance: Present: cooperative, mild distress, A&O X 3, answers questions appropriately - Head Additional comments: L orbital contusion noted. - Eye Eye exam: Present: periorbital swelling, scleral icterus - ENT ENT exam: Present: mucous membranes moist - Neck Neck exam general surgery: Present: normal inspection, trachea midline - Respiratory Respiratory exam: Present: CTAB - Cardiovascular Cardiovascular exam: Present: RRR, +S1, +S2 - GI/Abdominal GI/Abdominal exam: Present: soft, tenderness, no peritoneal signs Additional comments: epigastric/RUQ abd tenderness with light palpation; no visible contusion in this region. Imaging was negative. - Rectal Rectal exam: Present: deferred - Extremities Exam Extremities exam: Present: pedal edema - Neurological Exam Neurological exam: Present: altered Additional comments: asterixis apparent - Psychiatric Psychiatric exam: Present: normal affect, normal mood - Skin Skin exam: Present: dry, intact, normal color, warm Results - Labs CBC & Chem 7: 06/10/16 04:54 06/10/16 04:54 Labs: Last Result Calcium 8.1 mg/dL (8.6-10.8) L 06/10/16 04:54 Troponin I 0.03 ng/mL (0-0.03) 06/09/16 11:24 Entire Visit Hgb 8.7 g/dL (11.5-15.4) L 06/10/16 04:54 Hct 25.3 % (35.3-44.9) L 06/10/16 04:54 PT 35.8 Seconds (9.4-12.1) H 06/10/16 04:54 Total Bilirubin 7.9 mg/dL (0.2-1.2) H 06/09/16 11:24 AST 116 Units/L (5-34) H 06/09/16 11:24 ALT 39 Units/L (0-55) 06/09/16 11:24 Ammonia 39 mcmol/L (18-72) 06/09/16 11:24 Lipase 59 Units/L (8-78) 06/09/16 11:24 - ABG ABG results: PT/INR, D-dimer PT 35.8 Seconds (9.4-12.1) H 06/10/16 04:54 - Impressions Impressions Abdomen MRI 06/09/16 15:30 IMPRESSION: The study is at least moderately low limited by motion artifact. A tiny right and small left pleural effusion. Cholelithiasis. The visualized biliary ducts are normal in caliber without filling defect. The visualized D/ / Beatrice Babb Cha, MD / Beatrice Babb Cha, MD Interpreting Provider: Beatrice Babb Cha, MD Consult Discharge Plan - Plan Referrals: Sai Rivas MD [Primary Care Provider] - <Pancho Mcconnell - Last Filed: 06/10/16 17:38> Date of Encounter: 06/10/16 Time of Encounter: 18:00 - Time Spent With Patient Total time spent is greater than 50% in coordination of care (as documented) at patient's floor/unit and/or counseling patient: GI History of Present Illness - Data of Consult Requesting Physician: Breanne Fallon - Consult Narrative History of present illness: Ms. Scott is a 55 year old female - Constitutional Vitals: Temp Pulse Resp BP Pulse Ox 98.1 F 80 16 122/79 96 06/10/16 14:29 06/10/16 14:29 06/10/16 14:29 06/10/16 14:29 06/10/16 14:29 Results - Labs CBC & Chem 7: 06/10/16 04:54 06/10/16 15:53 Labs: Last Result Calcium 8.1 mg/dL (8.6-10.8) L 06/10/16 04:54 Troponin I 0.03 ng/mL (0-0.03) 06/09/16 11:24 Entire Visit Hgb 8.7 g/dL (11.5-15.4) L 06/10/16 04:54 Hct 25.3 % (35.3-44.9) L 06/10/16 04:54 PT 35.8 Seconds (9.4-12.1) H 06/10/16 04:54 Total Bilirubin 7.3 mg/dL (0.2-1.2) H 06/10/16 04:54 AST 96 Units/L (5-34) H 06/10/16 04:54 ALT 35 Units/L (0-55) 06/10/16 04:54 Ammonia 39 mcmol/L (18-72) 06/09/16 11:24 Lipase 59 Units/L (8-78) 06/09/16 11:24 - ABG ABG results: PT/INR, D-dimer PT 35.8 Seconds (9.4-12.1) H 06/10/16 04:54 - Impressions Impressions Abdomen MRI 06/09/16 15:30 IMPRESSION: The study is at least moderately low limited by motion artifact. A tiny right and small left pleural effusion. Cholelithiasis. The visualized biliary ducts are normal in caliber without filling defect. The visualized D/ / Beatrice Babb Cha, MD / Beatrice Babb Cha, MD Interpreting Provider: Beatrice Babb Cha, MD - Attending Attestation I examined this patient and my medical decision-making was reviewed with the [employer]/PA/Advanced Practice Nurse/Resident Physician. I agree with the documented findings, disposition and treatment plan as described except to the extent set forth below. Pt with poss ALD doubt acute cholecystitis, r/o infection and if negative then steroids
[2016-06-10] MEDS ORDERED: Magnesium Sulfate 1 GM in D5% in Water 100 ML IVPB ONE ×2 (12:00→18:37)
[2016-06-10 12:20] LABS: Alanine Aminotransferase 35 Units/L (0-55); Albumin/Globulin Ratio 0.4 (1.1-2.2); Alkaline Phosphatase 89 Units/L (38-126); Aspartate Amino Transferase 96 Units/L (5-34); Bilirubin,Direct 3.8 mg/dL (0.0-0.5); Bilirubin,Indirect 3.5 mg/dL (0.0-1.2); Bilirubin,Total 7.3 mg/dL (0.2-1.2); Globulin 5.2 g/dL (2.4-3.5); Total Protein 7.1 g/dL (6.0-8.3)
[2016-06-10 12:21] LABS: Albumin 1.9 g/dL (3.5-5.0)
[2016-06-10 16:05] LABS: Magnesium 1.1 mg/dL (1.6-2.6); Potassium 3.1 mEq/L (3.5-4.5)
--- NOTE | 2016-06-10 16:47 | Palliative - Consult Note ---
Date of Encounter: 06/10/16 Time of Encounter: 16:27 - Assessment and Plan (1) Goals of care, counseling/discussion Current Visit: Yes Status: Acute Assessment and plan: Briefly discussed goals of care with the patient. She was not engaged in conversation and had very poor eye contact. She did indicate that she would want her mother, Polina Cisse to serve as her emergency contact/healthcare power of assistant city attorney. We discussed CODE STATUS to the extent that the patient would allow. At this time, she is to remain a full code. The palliative care team will follow up at a later date as the patient was reluctantly interactive during this timeframe. Social service is following for discharge needs. The palliative care team will follow. (2) Acute hepatic encephalopathy Current Visit: No Status: Acute Assessment and plan: Lactulose at home dose. (3) Liver cirrhosis Current Visit: Yes Status: Chronic Assessment and plan: GI on board Qualifiers: Hepatic cirrhosis type: alcoholic cirrhosis Ascites presence: with ascites Qualified Code(s): K70.31 - Alcoholic cirrhosis of liver with ascites (4) Cholelithiasis Current Visit: Yes Status: Acute Assessment and plan: GI on board Qualifiers: Cholelithiasis location: gallbladder Cholecystitis presence: with cholecystitis Cholecystitis acuity: acute and chronic Biliary obstruction: with biliary obstruction Qualified Code(s): K80.13 - Calculus of gallbladder with acute and chronic cholecystitis with obstruction (5) ETOH abuse Current Visit: No Status: Chronic Assessment and plan: CIWA protocol in place. Palliative-CN HPI - Data of Consult Patient: new to practice Consult date: 06/10/16 Requesting Physician: Jay Mcclain MD Primary Care Provider: Sai Rivas MD - Consult Narrative Palliative Care/Comfort Measures: Palliative care Reason for consult: Goals of care History of present illness: Ms. Scott is a 55 year old female presenting to [facility] with complaints of right upper quadrant pain, weakness, falls. The patient has known cirrhosis with hepatitis C. Workup in the emergency department revealed cholecystitis. She was admitted and a GI consult was placed. There were plans for an MRCP, but the patient's INR has been elevated due to her end-stage liver disease. Overall, she reports just feeling weak and tired. 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 Ms. Scott was withdrawn during the consultation and very drowsy. Portions of the history were taken from the medical record. CC: Jay Mcclain MD Past Med Surg Social Fam HX - Past Medical History Source: patient, old records reviewed Medical history: cirrhosis, GERD, hepatitis, liver disease Psychiatric history: no psych history - Past Surgical History Surgical History: other - Social History Smoking Status: Current every day smoker Smokeless Tobacco Status: No Alcohol use: heavy Drug use: none Current living situation: Home, With Family Activity Level: Independent ambulation - Family History Mother Living Status: Still Living Hx Family Cardiac Disorders: Yes Hx Family Cancer: Yes Hx Family Endocrine Disorder: Yes (diabetes) Father Living Status: Still Living Hx Family Cancer: Yes Medications and Allergies Vits #90/Iron Fum/FA [ Formula Tablet] 1 tab PO DAILY 09/29/15 [History] Furosemide [Lasix] 40 mg PO DAILY 30 Days 10/01/15 [Rx] Potassium Chloride 10 meq PO DAILY 30 Days 10/01/15 [Rx] Propranolol [Inderal] 10 mg PO TID 30 Days 10/01/15 [Rx] Rifaximin [Xifaxan] 400 mg PO BID 30 Days 10/01/15 [Rx] Spironolactone [Aldactone] 50 mg PO DAILY 30 Days 10/01/15 [Rx] Omeprazole Magnesium [Prilosec Otc] 40 mg PO BID 30 Days 10/04/15 [Rx] Phytonadione [Mephyton] 5 mg PO DAILY #3 tablet 10/04/15 [Rx] Chlorhexidine Gluconate [Peridex] 15 ml MM TID 06/09/16 [History] Lactulose [Enulose] 30 ml PO DAILY 06/09/16 [History] Allergies No Known Allergies Allergy (Verified 09/29/15 15:44) - Constitutional Constitutional ROS PAL: decreased appetite, fatigue, frequent falls, no weight loss - EENT Eyes: requires corrective lenses, no change in vision Ears: no decreased hearing Ears, nose, mouth, throat: no dysphagia, no nasal congestion, no sore throat - Cardiovascular Cardiovascular ROS: edema, pedal edema, no chest pain, no chest pain with activity, no dyspnea on exertion - Respiratory Respiratory: no cough, no dyspnea, no dyspnea on exertion, no wheezing - Gastrointestinal Gastrointestinal: abdominal pain, loose stools (Due to medications), no constipation, no nausea, no vomiting - Genitourinary Palliative ROS female: no difficulty voiding, no urinary hesitancy - Musculoskeletal Musculoskeletal ROS IM: muscle weakness - Integumentary ROS Integumentary: unusual bruising (Related to recent fall), jaundice - Neurological Neurological ROS: weakness (Global) - Psychiatric Psychiatric general PM: no anxiety Palliative Care-Exam - Constitutional Vitals: Temp Pulse Resp BP Pulse Ox 98.1 F 80 16 122/79 96 06/10/16 14:29 06/10/16 14:29 06/10/16 14:29 06/10/16 14:29 06/10/16 14:29 General appearance: Present: cooperative, obese - Head Head Exam: Absent: atraumatic (Ecchymosis noted to the left periorbital area) - Eye Eye exam: Present: EOMI, scleral icterus Pupils: Present: PERRL - ENT ENT exam: Present: mucous membranes dry - Expanded ENT Exam Teeth exam: Present: dental caries (Poor dentition) - Respiratory Respiratory exam: Present: decreased breath sounds. Absent: accessory muscle use, respiratory distress - Cardiovascular Cardiovascular exam: Present: RRR, systolic murmur - GI/Abdominal Exam GI/Abdominal exam: Present: normal bowel sounds, tenderness (Right upper quadrant with palpation). Absent: distended, firm, guarding - Extremities Exam Extremities exam: Present: pedal edema - Expanded Upper Extremities Exam Elbow exam: Present: ecchymosis (Right side) - Expanded Lower Extremities Exam Knee exam: Present: abrasion, ecchymosis - Neurological Exam Neurological exam: Present: alert (But drowsy), oriented X3, no focal deficits, strengths equal and symetr throughout - Psychiatric Psychiatric exam: Present: depressed, flat affect. Absent: agitated, anxious - Skin Skin exam: Present: dry, warm Additional comments: Areas of ecchymosis noted to left periorbital area, right elbow, bilateral knees Internal Medicine - CN: Reslt - Labs CBC & Chem 7: 06/10/16 04:54 06/10/16 15:53 Labs: Short CBC 06/10/16 Range/Units 04:54 WBC 6.3 (4.3-11.1) K/mcL Hgb 8.7 L (11.5-15.4) g/dL Hct 25.3 L (35.3-44.9) % Plt Count 49 L (140-400) K/mcL Neutrophils # 3.2 (1.6-8.9) K/mcL BMP 06/10/16 06/10/16 04:54 15:53 Sodium 135 L Potassium 2.9 L 3.1 L Chloride 103 Carbon Dioxide 22 BUN 11 Creatinine 0.98 Glucose 80 Calcium 8.1 L Liver Function 06/10/16 Range/Units 04:54 Total Bilirubin 7.3 H (0.2-1.2) mg/dL Direct Bilirubin 3.8 H (0.0-0.5) mg/dL AST 96 H (5-34) Units/L ALT 35 (0-55) Units/L Alkaline Phosphatase 89 (38-126) Units/L Albumin 1.9 L (3.5-5.0) g/dL - ABG Interpretation ABG results: PT/INR, D-dimer PT 35.8 Seconds (9.4-12.1) H 06/10/16 04:54 - Impressions Impressions Abdomen MRI 06/09/16 15:30 IMPRESSION: The study is at least moderately low limited by motion artifact. A tiny right and small left pleural effusion. Cholelithiasis. The visualized biliary ducts are normal in caliber without filling defect. The visualized D/ / Beatrice Babb Cha, MD / Beatrice Babb Cha, MD Interpreting Provider: Beatrice Babb Cha, MD Consult Discharge Plan - Plan Referrals: Sai Rivas MD [Primary Care Provider] - Palliative Quality Palliative Quality: Screen for Code Status: Yes, Screen for Goals of Care: Yes, Screen for Pain: Yes, If Pain Regimen Started, Initiate Bowel Regimen: Yes, Screen for Nausea/Vomitting: Yes
[2016-06-10] MEDS ORDERED: Furosemide 40 MG/4 ML VIAL IVP SCH (17:00)
--- NOTE | 2016-06-10 17:41 | Electrocardiograph Report ---
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
--- NOTE | 2016-06-10 18:39 | Internal Med Progress Note ---
Date of Encounter: 06/10/16 Time of Encounter: 13:00 - Assessment and plan (1) Abdominal pain Current Visit: Yes Status: Acute Assessment and plan: MRi abdomen showed cholelithiasis. Qualifiers: Abdominal location: upper abdomen, unspecified Qualified Code(s): R10.10 - Upper abdominal pain, unspecified (2) Liver cirrhosis Current Visit: Yes Status: Chronic Assessment and plan: Alcoholic liver cirrhosis. Patient diagnosed a year ago and did not stop drinking alcohol. MELD Na is 28. Not candidate for steroid therapy due to chronic dental infection. Not candidate for liver transplant due to alcohol abuse. We will continue supportive therapy with IV antibiotics, replace electrolytes. I spoke with mother about her diagnosis, poor prognosis and treatment options. She verbalized understanding and agreed with the plan. Qualifiers: Hepatic cirrhosis type: alcoholic cirrhosis Ascites presence: with ascites Qualified Code(s): K70.31 - Alcoholic cirrhosis of liver with ascites (3) Dental infection Current Visit: Yes Status: Acute Assessment and plan: IV unasyn (4) Acute hepatic encephalopathy Current Visit: No Status: Acute Assessment and plan: Increase lactulose to 20 mg every 2 hours until 3-4 bowel movements per day. Continue rifaximin. Replace electrolytes. (5) Cholelithiasis Current Visit: Yes Status: Chronic Assessment and plan: start ursodiol. low fat diet Qualifiers: Cholelithiasis location: gallbladder Cholecystitis presence: with cholecystitis Cholecystitis acuity: acute and chronic Biliary obstruction: with biliary obstruction Qualified Code(s): K80.13 - Calculus of gallbladder with acute and chronic cholecystitis with obstruction (6) Coagulopathy Current Visit: No Status: Chronic Assessment and plan: Secondary to liver cirrhosis. elevated inr. stop oral vitamin K (7) ETOH abuse Current Visit: No Status: Chronic Assessment and plan: Patient counseled to quit drinking. She agreed. (8) Macrocytic anemia Current Visit: No Status: Acute Assessment and plan: Hemoglobin is 8.7. Hemodynamically is stable. Close monitoring. (9) Thrombocytopenia Current Visit: Yes Status: Chronic Assessment and plan: Chronic. No bleeding. Close monitoring. (10) Hypomagnesemia Current Visit: Yes Status: Acute Assessment and plan: replete (11) Hypokalemia Current Visit: No Status: Acute Assessment and plan: replete - Subjective Interval history: Patient reports diffuse abdominal pain. Her mother reports chronic dental infection that requires surgical removal of teeth but no dentist will take care for surgery due to history of cirrhosis. - Constitutional Vitals: Temp Pulse Resp BP Pulse Ox 98.1 F 80 16 122/79 96 06/10/16 14:29 06/10/16 14:29 06/10/16 14:29 06/10/16 14:29 06/10/16 14:29 General appearance: Present: A&O X 2, pleasant, no acute distress, answers questions appropriately - Eye Eye exam: Present: scleral icterus - Neck Neck exam general surgery: Present: supple, trachea midline. Absent: lymphadenopathy - Respiratory Respiratory exam: Present: CTAB. Absent: rales, wheezes - Cardiovascular Cardiovascular exam: Present: RRR - GI/Abdominal GI/Abdominal exam: Present: normal bowel sounds, soft, tenderness (diffuse tenderness). Absent: distended - Extremities Exam Extremities exam: Absent: pedal edema - Back Exam Back exam: Absent: CVA tenderness (L), CVA tenderness (R) - Neurological Exam Neurological exam: Present: alert. Absent: facial droop, speech deficit - Skin Skin exam: Present: dry Internal Medicine: Result - Labs CBC & Chem 7: 06/10/16 04:54 06/10/16 15:53 Labs: Short CBC 06/10/16 Range/Units 04:54 WBC 6.3 (4.3-11.1) K/mcL Hgb 8.7 L (11.5-15.4) g/dL Hct 25.3 L (35.3-44.9) % Plt Count 49 L (140-400) K/mcL Neutrophils # 3.2 (1.6-8.9) K/mcL BMP 06/10/16 06/10/16 04:54 15:53 Sodium 135 L Potassium 2.9 L 3.1 L Chloride 103 Carbon Dioxide 22 BUN 11 Creatinine 0.98 Glucose 80 Calcium 8.1 L Liver Function 06/10/16 Range/Units 04:54 Total Bilirubin 7.3 H (0.2-1.2) mg/dL Direct Bilirubin 3.8 H (0.0-0.5) mg/dL AST 96 H (5-34) Units/L ALT 35 (0-55) Units/L Alkaline Phosphatase 89 (38-126) Units/L Albumin 1.9 L (3.5-5.0) g/dL - ABG Interpretation ABG results: PT/INR, D-dimer PT 35.8 Seconds (9.4-12.1) H 06/10/16 04:54 - VTE Documentation of Mechanical Device: Graduated compression elastic hosiery Consult Discharge Plan - Plan Referrals: Sai Rivas MD [Primary Care Provider] -
[2016-06-10] MEDS: Ampicillin/Sulbactam 1,500 MG in 0.9 % Sodium Chloride Mini Bag 100 ML IVPB SCH (19:56)
[2016-06-11] MEDS: Lactulose Oral Soln 20 GM/30 ML UDC PO SCH ×11 (00:49→20:13)
[2016-06-11] MEDS: Ampicillin/Sulbactam 1,500 MG in 0.9 % Sodium Chloride Mini Bag 100 ML IVPB SCH ×4 (00:49→17:30)
[2016-06-11] MEDS ORDERED: Magnesium Sulfate 2 GM in D5% in Water 100 ML IVPB ONE (06:00)
[2016-06-11 06:18] LABS: INR 3.1; Prothrombin Time 34.4 Seconds (9.4-12.1)
[2016-06-11 06:20] LABS: Hematocrit 26.8 % (35.3-44.9); Hemoglobin 8.9 g/dL (11.5-15.4); Immature Granulocytes % 0.5 % (0-4); Mean Corpuscular HGB Conc 33.2 g/dL (31.6-35.5); Mean Corpuscular Volume 108.5 fL (83.0-100.0); Monocytes % 14.5 %; Nucleated Red Blood Cells 0.8 /100 WBC (0); Red Blood Count 2.47 M/mcL (3.82-4.97)
[2016-06-11 06:22] LABS: Basophils % 0.6 %; Eosinophils # 0.1 K/mcL (0.0-0.6); Immature Platelets 11.7 % (1.1-6.1); Lymphocytes # 1.7 K/mcL (0.6-4.6); Lymphocytes % 26.4 %; Mean Platelet Volume 12.2 fL (9.4-12.4); Monocytes # 0.9 K/mcL (0.0-1.3); Neutrophils # 3.6 K/mcL (1.6-8.9); Red Cell Distribution Width 14.7 % (11.5-14.5)
[2016-06-11 06:27] LABS: Albumin 2.1 g/dL (3.5-5.0); Albumin/Globulin Ratio 0.4 (1.1-2.2); Bilirubin,Direct 4.7 mg/dL (0.0-0.5); Bilirubin,Indirect 3.5 mg/dL (0.0-1.2); Bilirubin,Total 8.2 mg/dL (0.2-1.2); Calcium 7.9 mg/dL (8.6-10.8); Globulin 5.5 g/dL (2.4-3.5); Magnesium 1.2 mg/dL (1.6-2.6); Total Protein 7.6 g/dL (6.0-8.3)
[2016-06-11 06:30] LABS: Platelet Count 61 K/mcL (140-400)
[2016-06-11 06:31] LABS: Phosphorous 3.3 mg/dL (2.3-4.7)
[2016-06-11] MEDS: Pantoprazole 40 MG VIAL IVP SCH (08:59)
[2016-06-11] MEDS: Prenatal Vit/FA 1 EACH TABLET PO SCH (08:59)
[2016-06-11] MEDS: Magnesium Oxide 400 MG TABLET PO SCH ×2 (09:00→20:12)
--- NOTE | 2016-06-11 10:25 | Palliative Progress Note ---
Date of Encounter: 06/11/16 Time of Encounter: 10:00 - Assessment and plan (1) Goals of care, counseling/discussion Current Visit: Yes Status: Acute Assessment and plan: Patient in bed. Awake and alert. Cooperative and agrees to talk. Patient currently living with her mother Madeline in a private residence. Reports having a boyfriend Douglas Greenberg. He lives in [place], [place] and they talk daily on the phone. His contact number is [phone]. Discussed goals of care related to chronic liver disease and failure to be a candidate for transplant due to ETOH abuse. Patient verbalizes that she wants to return home to live and care for mother who has urostomy from hx of bladder Ca. She verbalizes that she still desires to be hospitalized for care if she needs it. She is open to drafting POA papers for mother and Douglas to be agents. I discussed Code Status and the desire for mechanical intubation and CPR. She became emotional and states that she will need to think this information over. I will follow-up on code status discussion once patient has has ample time to consider options. I reviewed each status and explained that given current status of cirrhosis that comfort care would be an option. Social service and I will complete POA forms with patient. (2) Acute hepatic encephalopathy Current Visit: No Status: Acute Assessment and plan: Last Ammonia level 06/08 was 39. Currently taking 20 mg lactulose and is having multiple BMs. Patient is alert and willing participate in GOC discussion. ALT and ASR nomal. Albumin 2.1 and total billirubin 8.2. Meld 28. (3) Tobacco abuse Current Visit: No Status: Acute Assessment and plan: Denies the desire for Nicotine patch (4) Liver cirrhosis Current Visit: Yes Status: Chronic Qualifiers: Hepatic cirrhosis type: alcoholic cirrhosis Ascites presence: with ascites Qualified Code(s): K70.31 - Alcoholic cirrhosis of liver with ascites (5) ETOH abuse Current Visit: No Status: Chronic - Time Spent With Patient Total time spent is greater than 50% in coordination of care (as documented) at patient's floor/unit and/or counseling patient: 25 - 35 minutes - Subjective Interval history: Patient awake, alert and reports that her abdominal pain has improved. Chart reviewed and patient agrees to discuss goals of care. - Constitutional Vitals: Abnormal lab results RBC 2.47 M/mcL (3.82-4.97) L 06/11/16 04:53 Hgb 8.9 g/dL (11.5-15.4) L 06/11/16 04:53 Hct 26.8 % (35.3-44.9) L 06/11/16 04:53 MCV 108.5 fL (83.0-100.0) H 06/11/16 04:53 MCH 36.0 pg (28.0-33.3) H 06/11/16 04:53 RDW 14.7 % (11.5-14.5) H 06/11/16 04:53 Plt Count 61 K/mcL (140-400) L 06/11/16 04:53 Nucleated RBCs/100 WBC 0.8 /100 WBC (0) H 06/11/16 04:53 Platelet Estimate Decreased (Normal) L 06/10/16 04:54 Immature Plt Fraction 11.7 % (1.1-6.1) H 06/11/16 04:53 Polychromasia 1+ (Not Present) A 06/10/16 04:54 PT 34.4 Seconds (9.4-12.1) H 06/11/16 04:53 APTT 49.5 Seconds (26.0-36.0) H 06/10/16 04:54 Potassium 3.0 mEq/L (3.5-4.5) L 06/11/16 04:53 Creatinine 1.27 mg/dL (0.57-1.11) H 06/11/16 04:53 Est GFR ( Amer) 53 (> 60) L 06/11/16 04:53 Est GFR (Non-Af Amer) 44 (> 60) L 06/11/16 04:53 Glucose 125 mg/dL (70-99) H 06/11/16 04:53 POC Glucose 137 (58-89) H 06/10/16 11:52 Calcium 7.9 mg/dL (8.6-10.8) L 06/11/16 04:53 Magnesium 1.2 mg/dL (1.6-2.6) L 06/11/16 04:53 Total Bilirubin 8.2 mg/dL (0.2-1.2) H 06/11/16 04:53 Direct Bilirubin 4.7 mg/dL (0.0-0.5) H 06/11/16 04:53 Indirect Bilirubin 3.5 mg/dL (0.0-1.2) H 06/11/16 04:53 AST 95 Units/L (5-34) H 06/11/16 04:53 B-Natriuretic Peptide 281 pg/mL (0-100) H 06/09/16 11:24 Albumin 2.1 g/dL (3.5-5.0) L 06/11/16 04:53 Globulin 5.5 g/dL (2.4-3.5) H 06/11/16 04:53 Albumin/Globulin Ratio 0.4 (1.1-2.2) L 06/11/16 04:53 - Head Head exam: Present: atraumatic, normal inspection, normocephalic - Expanded Head Exam Head exam: Present: contusion (Right lower eye, wear corrective bifocals) - Eye Eye exam: Present: PERRL Pupils: Present: PERRL - ENT ENT exam: Present: mucous membranes moist - Neck Neck exam: Present: full ROM - Respiratory Respiratory exam: Present: CTAB - Cardiovascular Cardiovascular exam: Present: RRR, +S1, +S2 - GI/Abdominal GI/Abdominal exam: Present: normal bowel sounds (numerous BMs and patient receiving lactulose), soft, tenderness (RUQ tenderness to palpation) - Extremities Exam Extremities exam: Present: full ROM - Expanded Upper Extremity Exam Shoulder exam: Present: full ROM Upper Arm exam: Present: full ROM - Expanded Lower Extremity Exam Hip exam: Present: full ROM Upper Leg exam: Present: full ROM Knee exam: Present: full ROM Lower leg exam: Present: full ROM Ankle exam: Present: full ROM - Back Exam Back exam: Present: full ROM - Neurological Exam Neurological exam: Present: alert, oriented X3 (patient able to provide ) - Psychiatric Psychiatric exam: Present: normal affect - Skin Skin exam: Present: intact (Bilateral knee contusions ), warm Palliative Quality Palliative Quality: Screen for Code Status: Yes, Screen for Goals of Care: Yes, Screen for Pain: Yes, If Pain Regimen Started, Initiate Bowel Regimen: Yes, Screen for Nausea/Vomitting: Yes - Labs CBC & Chem 7: 06/11/16 04:53 06/11/16 04:53 Labs: Laboratory Results - last 24 hr 06/09/16 06/09/16 06/10/16 19:34 23:38 04:54 WBC RBC Hgb Hct MCV MCH MCHC RDW Plt Count MPV Immature Gran % Seg Neutrophils % Lymphocytes % Monocytes % Eosinophils % Basophils % Neutrophils # Lymphocytes # Monocytes # Eosinophils # Basophils # Nucleated RBCs/100 WBC Immature Plt Fraction PT INR Sodium Potassium Chloride Carbon Dioxide BUN Creatinine Est GFR ( Amer) Est GFR (Non-Af Amer) BUN/Creatinine Ratio Glucose POC Glucose 119 H 118 H Calculated Osmolality Calcium Phosphorus Magnesium Total Bilirubin 7.3 H Direct Bilirubin 3.8 H Indirect Bilirubin 3.5 H AST 96 H ALT 35 Alkaline Phosphatase 89 Serum Total Protein 7.1 Albumin 1.9 L Globulin 5.2 H Albumin/Globulin Ratio 0.4 L 06/10/16 06/10/16 06/11/16 11:52 15:53 04:53 WBC 6.3 RBC 2.47 L Hgb 8.9 L Hct 26.8 L MCV 108.5 H MCH 36.0 H MCHC 33.2 RDW 14.7 H Plt Count 61 L MPV 12.2 Immature Gran % 0.5 Seg Neutrophils % 57.0 Lymphocytes % 26.4 Monocytes % 14.5 Eosinophils % 1.0 Basophils % 0.6 Neutrophils # 3.6 Lymphocytes # 1.7 Monocytes # 0.9 Eosinophils # 0.1 Basophils # 0.0 Nucleated RBCs/100 WBC 0.8 H Immature Plt Fraction 11.7 H PT INR Sodium Potassium 3.1 L Chloride Carbon Dioxide BUN Creatinine Est GFR ( Amer) Est GFR (Non-Af Amer) BUN/Creatinine Ratio Glucose POC Glucose 137 H Calculated Osmolality Calcium Phosphorus Magnesium 1.1 L Total Bilirubin Direct Bilirubin Indirect Bilirubin AST ALT Alkaline Phosphatase Serum Total Protein Albumin Globulin Albumin/Globulin Ratio 06/11/16 06/11/16 04:53 04:53 WBC RBC Hgb Hct MCV MCH MCHC RDW Plt Count MPV Immature Gran % Seg Neutrophils % Lymphocytes % Monocytes % Eosinophils % Basophils % Neutrophils # Lymphocytes # Monocytes # Eosinophils # Basophils # Nucleated RBCs/100 WBC Immature Plt Fraction PT 34.4 H INR 3.1 Sodium 137 Potassium 3.0 L Chloride 103 Carbon Dioxide 25 BUN 12 Creatinine 1.27 H Est GFR ( Amer) 53 L Est GFR (Non-Af Amer) 44 L BUN/Creatinine Ratio 9 Glucose 125 H POC Glucose Calculated Osmolality 285 Calcium 7.9 L Phosphorus 3.3 D Magnesium 1.2 L Total Bilirubin 8.2 H Direct Bilirubin 4.7 H Indirect Bilirubin 3.5 H AST 95 H ALT 32 Alkaline Phosphatase 98 Serum Total Protein 7.6 Albumin 2.1 L Globulin 5.5 H Albumin/Globulin Ratio 0.4 L - ABG Interpretation ABG results: PT/INR, D-dimer PT 34.4 Seconds (9.4-12.1) H 06/11/16 04:53 Consult Discharge Plan - Plan Referrals: Sai Rivas MD [Primary Care Provider] -
[2016-06-11 11:03] LABS: AFP Tumor Marker Non-Pregnant 5 ng/mL (0-9)
--- NOTE | 2016-06-11 18:54 | Internal Med Progress Note ---
Date of Encounter: 06/11/16 Time of Encounter: 15:00 - Assessment and plan (1) Abdominal pain Current Visit: Yes Status: Acute Assessment and plan: MRi abdomen showed cholelithiasis. improved. Qualifiers: Abdominal location: upper abdomen, unspecified Qualified Code(s): R10.10 - Upper abdominal pain, unspecified (2) Liver cirrhosis Current Visit: Yes Status: Chronic Assessment and plan: Alcoholic liver cirrhosis. Patient diagnosed a year ago and did not stop drinking alcohol. MELD Na is 28. Not candidate for steroid therapy due to chronic dental infection. Not candidate for liver transplant due to alcohol abuse. We will continue supportive therapy with IV antibiotics, and replace electrolytes. Mg is still very low, IV Magnesium and start oral supplementation. May dc to home in AM if mag levels are better. I spoke with mother in person about her diagnosis, poor prognosis and treatment options. She verbalized understanding and agreed with the plan. Qualifiers: Hepatic cirrhosis type: alcoholic cirrhosis Ascites presence: with ascites Qualified Code(s): K70.31 - Alcoholic cirrhosis of liver with ascites (3) Dental infection Current Visit: Yes Status: Acute Assessment and plan: IV unasyn (4) Acute hepatic encephalopathy Current Visit: No Status: Acute Assessment and plan: Improved. continue lactulose to 20 mg every 2 hours until 3-4 bowel movements per day. Continue rifaximin. Replace electrolytes. (5) Cholelithiasis Current Visit: Yes Status: Chronic Assessment and plan: start ursodiol. low fat diet Qualifiers: Cholelithiasis location: gallbladder Cholecystitis presence: with cholecystitis Cholecystitis acuity: acute and chronic Biliary obstruction: with biliary obstruction Qualified Code(s): K80.13 - Calculus of gallbladder with acute and chronic cholecystitis with obstruction (6) Coagulopathy Current Visit: No Status: Chronic Assessment and plan: Secondary to liver cirrhosis. elevated inr. stop oral vitamin K (7) ETOH abuse Current Visit: No Status: Chronic Assessment and plan: Patient counseled to quit drinking. She agreed. (8) Macrocytic anemia Current Visit: No Status: Acute Assessment and plan: Hemoglobin is 8.7. Hemodynamically is stable. Close monitoring. (9) Thrombocytopenia Current Visit: Yes Status: Chronic Assessment and plan: Chronic. No bleeding. Close monitoring. (10) Hypomagnesemia Current Visit: Yes Status: Acute Assessment and plan: replete (11) Hypokalemia Current Visit: No Status: Acute Assessment and plan: replete - Subjective Interval history: Patient reports mild diffuse abdominal pain but it is improving. She is less confused this morning. Family is at the bedside. I answered all her questions. - Constitutional Vitals: Temp Pulse Resp BP Pulse Ox 99.0 F 68 16 105/61 97 06/11/16 15:32 06/11/16 15:32 06/11/16 15:32 06/11/16 15:32 06/11/16 15:32 General appearance: Present: A&O X 3, pleasant, no acute distress, answers questions appropriately - Eye Eye exam: Present: PERRL, sclera anicteric - Neck Neck exam general surgery: Present: supple, trachea midline. Absent: lymphadenopathy - Respiratory Respiratory exam: Present: CTAB - Cardiovascular Cardiovascular exam: Present: RRR - GI/Abdominal GI/Abdominal exam: Present: normal bowel sounds, soft. Absent: distended, tenderness - Extremities Exam Extremities exam: Present: pedal edema - Back Exam Back exam: Absent: CVA tenderness (L), CVA tenderness (R) - Neurological Exam Neurological exam: Present: alert, oriented X3, no focal deficits, strengths equal and symetr throughout. Absent: facial droop, speech deficit Additional comments: positive asterixis - Skin Skin exam: Present: dry Internal Medicine: Result - Labs CBC & Chem 7: 06/11/16 04:53 06/11/16 04:53 Labs: Short CBC 06/11/16 Range/Units 04:53 WBC 6.3 (4.3-11.1) K/mcL Hgb 8.9 L (11.5-15.4) g/dL Hct 26.8 L (35.3-44.9) % Plt Count 61 L (140-400) K/mcL Neutrophils # 3.6 (1.6-8.9) K/mcL BMP 06/11/16 04:53 Sodium 137 Potassium 3.0 L Chloride 103 Carbon Dioxide 25 BUN 12 Creatinine 1.27 H Glucose 125 H Calcium 7.9 L Liver Function 06/11/16 Range/Units 04:53 Total Bilirubin 8.2 H (0.2-1.2) mg/dL Direct Bilirubin 4.7 H (0.0-0.5) mg/dL AST 95 H (5-34) Units/L ALT 32 (0-55) Units/L Alkaline Phosphatase 98 (38-126) Units/L Albumin 2.1 L (3.5-5.0) g/dL - ABG Interpretation ABG results: PT/INR, D-dimer PT 34.4 Seconds (9.4-12.1) H 06/11/16 04:53 - VTE Documentation of Mechanical Device: Graduated compression elastic hosiery Consult Discharge Plan - Plan Referrals: Sai Rivas MD [Primary Care Provider] -
[2016-06-12] MEDS: Lactulose Oral Soln 20 GM/30 ML UDC PO SCH ×10 (00:24→18:37)
[2016-06-12] MEDS: Ampicillin/Sulbactam 1,500 MG in 0.9 % Sodium Chloride Mini Bag 100 ML IVPB SCH ×4 (00:24→18:29)
[2016-06-12 06:27] LABS: Segmented Neutrophils % 48.7 %
[2016-06-12 06:28] LABS: Basophils # 0.1 K/mcL (0.0-0.2); Basophils % 0.8 %; Eosinophils # 0.1 K/mcL (0.0-0.6); Eosinophils % 1.5 %; Hematocrit 28.5 % (35.3-44.9); Hemoglobin 9.4 g/dL (11.5-15.4); Immature Granulocytes % 0.3 % (0-4); Immature Platelets 11.3 % (1.1-6.1); Lymphocytes # 1.8 K/mcL (0.6-4.6); Lymphocytes % 30.2 %; Mean Corpuscular Hemoglobin 36.4 pg (28.0-33.3); Mean Corpuscular Volume 110.5 fL (83.0-100.0); Monocytes # 1.1 K/mcL (0.0-1.3); Monocytes % 18.5 %; Neutrophils # 2.9 K/mcL (1.6-8.9); Nucleated Red Blood Cells 0.8 /100 WBC (0); Red Blood Count 2.58 M/mcL (3.82-4.97)
[2016-06-12 06:34] LABS: BUN/Creatinine Ratio 11 (6-26); Blood Urea Nitrogen 12 mg/dL (7-20); Calcium 7.9 mg/dL (8.6-10.8); Carbon Dioxide 22 mEq/L (19-29); Chloride 102 mEq/L (98-109); Glucose 92 mg/dL (70-99); Magnesium 1.2 mg/dL (1.6-2.6); Osmolality,Calculated 279 (280-300); Phosphorous 3.2 mg/dL (2.3-4.7); Potassium 2.9 mEq/L (3.5-4.5); Sodium 135 mEq/L (136-145); eGFR For African Americans > 60 (> 60); eGFR For Non-African Americans 52 (> 60)
[2016-06-12 07:20] LABS: Platelet Count 71 K/mcL (140-400)
[2016-06-12 07:22] LABS: Anisocytosis 1+ (Not Present); Macrocytosis Present (Not Present); Platelet Estimate Decreased (Normal)
[2016-06-12] MEDS ORDERED: Potassium Chloride 40 MEQ, Lidocaine 1% 2 ML in D5% in Water 500 ML IVPB STA (08:03)
[2016-06-12] MEDS ORDERED: Magnesium Sulfate 2 GM in D5% in Water 100 ML IVPB STA (08:05)
[2016-06-12] MEDS: Magnesium Oxide 400 MG TABLET PO SCH ×2 (08:22→22:12)
[2016-06-12] MEDS: Prenatal Vit/FA 1 EACH TABLET PO SCH (08:22)
[2016-06-12] MEDS: Pantoprazole 40 MG VIAL IVP SCH (08:22)
--- NOTE | 2016-06-12 10:32 | Gastroenterology Progress Note ---
<Belinda Inman - Last Filed: 06/12/16 12:02> Date of Encounter: 06/12/16 Time of Encounter: 11:15 - Assessment and plan (1) Alcoholic cirrhosis of liver with ascites Current Visit: Yes Status: Chronic Assessment and plan: MELD Na 28, MELD original 27, Edwin-Ramachandran Class C, discriminant function 116.9. Patient with advanced liver disease, continues to drink, underlying Hep C virus (genotype 1a/1b, viral load < 6 mil) R/O underlying infection (UA and blood cultures x 2), if negative - patient needs steroid therapy despite chronic dental infection. Continue diuretics. Small amount of ascites noted on imaging, no evidence of SBP, vital signs stable, normal WBC. Small R/L pleural effusions noted on imaging. No lesions on imaging, afp wnl. Last EGD negative for varices in 08/2015. Entered order again for UA , per Dr. Mcconnell ok to start IV steroid therapy. Initial dosing 45 mg IV now, repeat daily. At time of d/c, oral medrol 32 mg po daily, reduce dose by 8 mg weekly, f/u in OV with Dr. Mcconnell for decompensated cirrhosis and chronic Hep C. (2) Hepatic encephalopathy Current Visit: Yes Status: Chronic Assessment and plan: Increase rifaximin to 400 mg po tid during hospital stay (OTPT dosage should be 550 mg po bid), titrate lactulose to 2-4 BMs daily. Zinc results pending, if low , zinc supplement recommended daily. (3) Pleural effusion Current Visit: Yes Status: Acute Assessment and plan: On diuretics, continue to monitor. (4) Coagulopathy Current Visit: No Status: Chronic Assessment and plan: Patient has received 2 units FFP and is on oral vitamin K supplement (5 mg po daily) Plts < 50 (5) Hepatitis C Current Visit: Yes Status: Chronic Assessment and plan: genotype 1a/1b; viral load < 6 mil (08/2015) Qualifiers: Viral hepatitis chronicity: chronic Hepatic coma status: without hepatic coma Qualified Code(s): B18.2 - Chronic viral hepatitis C (6) Abdominal pain Current Visit: Yes Status: Acute Assessment and plan: epigastric and RUQ abd pain apparent since her fall, prior to that she denied discomfort. Qualifiers: Abdominal location: epigastric Qualified Code(s): R10.13 - Epigastric pain - Time Spent With Patient Total time spent is greater than 50% in coordination of care (as documented) at patient's floor/unit and/or counseling patient: less than 15 minutes - Subjective Interval history: Patient was up by bed combing her hair at time of my visit in no visible distress. Discussed need to start steroids. - Constitutional Vitals: Temp Pulse Resp BP Pulse Ox 98.9 F 74 18 95/53 97 06/12/16 05:09 06/12/16 05:09 06/12/16 05:09 06/12/16 05:09 06/12/16 05:09 General appearance: Present: cooperative, mild distress, A&O X 3, answers questions appropriately - Head Head exam: Present: atraumatic, normocephalic - Eye Eye exam: Present: normal appearance, sclera anicteric - ENT ENT exam: Present: mucous membranes moist - Neck Neck exam general surgery: Present: normal inspection, trachea midline - Respiratory Respiratory exam: Present: CTAB - Cardiovascular Cardiovascular exam: Present: RRR, +S1, +S2 - GI/Abdominal GI/Abdominal exam: Present: soft, no peritoneal signs - Rectal Rectal exam: Present: deferred - Extremities Exam Extremities exam: Present: warm - Neurological Exam Neurological exam: Present: no focal deficits - Psychiatric Psychiatric exam: Present: depressed - Skin Skin exam: Present: dry, intact, normal color, warm Results - Labs CBC & Chem 7: 06/12/16 05:44 06/12/16 05:44 Labs: Last Result Calcium 7.9 mg/dL (8.6-10.8) L 06/12/16 05:44 Troponin I 0.03 ng/mL (0-0.03) 06/09/16 11:24 Entire Visit Hgb 9.4 g/dL (11.5-15.4) L 06/12/16 05:44 Hct 28.5 % (35.3-44.9) L 06/12/16 05:44 PT 34.4 Seconds (9.4-12.1) H 06/11/16 04:53 Total Bilirubin 8.2 mg/dL (0.2-1.2) H 06/11/16 04:53 AST 95 Units/L (5-34) H 06/11/16 04:53 ALT 32 Units/L (0-55) 06/11/16 04:53 Ammonia 39 mcmol/L (18-72) 06/09/16 11:24 Lipase 59 Units/L (8-78) 06/09/16 11:24 - ABG ABG results: PT/INR, D-dimer PT 34.4 Seconds (9.4-12.1) H 06/11/16 04:53 - VTE Documentation of Mechanical Device: Graduated compression elastic hosiery Consult Discharge Plan - Plan Referrals: Sai Rivas MD [Primary Care Provider] - <Pancho Mcconnell - Last Filed: 06/12/16 14:08> Date of Encounter: 06/12/16 - Time Spent With Patient Total time spent is greater than 50% in coordination of care (as documented) at patient's floor/unit and/or counseling patient: - Constitutional Vitals: Temp Pulse Resp BP Pulse Ox 97.6 F 60 18 117/64 97 06/12/16 12:31 06/12/16 12:31 06/12/16 12:31 06/12/16 12:31 06/12/16 12:31 Results - Labs CBC & Chem 7: 06/12/16 05:44 06/12/16 13:05 Labs: Last Result Calcium 7.9 mg/dL (8.6-10.8) L 06/12/16 05:44 Troponin I 0.03 ng/mL (0-0.03) 06/09/16 11:24 Entire Visit Hgb 9.4 g/dL (11.5-15.4) L 06/12/16 05:44 Hct 28.5 % (35.3-44.9) L 06/12/16 05:44 PT 34.4 Seconds (9.4-12.1) H 06/11/16 04:53 Total Bilirubin 8.2 mg/dL (0.2-1.2) H 06/11/16 04:53 AST 95 Units/L (5-34) H 06/11/16 04:53 ALT 32 Units/L (0-55) 06/11/16 04:53 Ammonia 39 mcmol/L (18-72) 06/09/16 11:24 Lipase 59 Units/L (8-78) 06/09/16 11:24 - ABG ABG results: PT/INR, D-dimer PT 34.4 Seconds (9.4-12.1) H 06/11/16 04:53 - Attending Attestation I examined this patient and my medical decision-making was reviewed with the SAGGER [place]AK/PA/Advanced Practice Nurse/Resident Physician. I agree with the documented findings, disposition and treatment plan as described except to the extent set forth below.
[2016-06-12] MEDS ORDERED: Magnesium Sulfate 1 GM in D5% in Water 100 ML IVPB ONE (11:00)
--- NOTE | 2016-06-12 11:24 | Event Note ---
Date of Encounter: 06/12/16 Time of Encounter: 11:19 Follow up discussion with the patient regarding goals of care. She was able to summarize her hospital stay and the condition of her liver as well as being ineligible for a transplant. Reviewed hospice option, but patient was very resistant to conversation. At this time, she does not meet hospice criteria. Code status to remain FULL CODE. The palliative are team is not managing symptoms, goals of care established. client services assistant will continue to follow. The palliative care team will sign off. Please re-consult if needed.
[2016-06-12] MEDS: MethylPREDNISolone 40 MG/ML VIAL IVP SCH (12:33)
[2016-06-12 12:44] LABS: Bilirubin,Urine Large (Negative); Blood,Urine Negative (Negative); Clarity,Urine Turbid (Clear); Color,Urine Orange (Yellow); Glucose,Urine (UA) Normal (Normal); Ketones,Urine Trace mg/dL (Negative); Leukocyte Esterase,Urine Moderate (Negative); Nitrite,Urine Positive (Negative); PH,Urine 5.5 pH Units (5.0-8.0); Protein,Urine Trace mg/dL (Neg-Trace); Specific Gravity,Urine > 1.030 (1.010-1.025)
[2016-06-12 12:47] LABS: Squamous Epithelial Cell,Urine Many per lpf (None-Few)
[2016-06-12 12:59] LABS: Hyaline Casts,Urine Few per lpf (None-Few)
[2016-06-12 13:00] LABS: RBC,Urine 0-3 per hpf (0-3); Yeast,Urine Few per hpf (None Seen)
[2016-06-12 13:01] LABS: Bacteria,Urine Moderate per hpf (None-Few)
[2016-06-12 13:28] LABS: Magnesium 2.2 mg/dL (1.6-2.6); Potassium 4.4 mEq/L (3.5-4.5)
[2016-06-12 14:36] LABS: Zinc 32 ug/dL (60-120)
--- NOTE | 2016-06-12 17:44 | Internal Med Progress Note ---
Date of Encounter: 06/12/16 Time of Encounter: 09:00 - Assessment and plan (1) Abdominal pain Current Visit: Yes Status: Acute Assessment and plan: likely secondary to acute alcoholic hepatitis. MRi abdomen showed cholelithiasis. abdominal pain is improving. start Iv solumedrol. close monitoring of LFTs and adverse effects including sepsis. Qualifiers: Abdominal location: upper abdomen, unspecified Qualified Code(s): R10.10 - Upper abdominal pain, unspecified (2) Liver cirrhosis Current Visit: Yes Status: Chronic Assessment and plan: Alcoholic liver cirrhosis. Patient diagnosed a year ago and did not stop drinking alcohol. MELD Na is 28. Not candidate for liver transplant due to alcohol abuse. Continue supportive therapy with IV antibiotics for chronic dental infection, and replace electrolytes. Mg is still very low. IV Magnesium and start oral supplementation. resume home dose of lasix. Qualifiers: Hepatic cirrhosis type: alcoholic cirrhosis Ascites presence: with ascites Qualified Code(s): K70.31 - Alcoholic cirrhosis of liver with ascites (3) Acute hepatic encephalopathy Current Visit: No Status: Acute Assessment and plan: Improved. less confused, she is ambulating well. continue lactulose to 20 mg every 2 hours until 3-4 bowel movements per day. Continue rifaximin. Replace electrolytes. (4) Dental infection Current Visit: Yes Status: Acute Assessment and plan: IV unasyn (5) Cholelithiasis Current Visit: Yes Status: Chronic Assessment and plan: start ursodiol. low fat diet Qualifiers: Cholelithiasis location: gallbladder Cholecystitis presence: with cholecystitis Cholecystitis acuity: acute and chronic Biliary obstruction: with biliary obstruction Qualified Code(s): K80.13 - Calculus of gallbladder with acute and chronic cholecystitis with obstruction (6) Coagulopathy Current Visit: No Status: Chronic Assessment and plan: Secondary to liver cirrhosis. elevated inr. stop oral vitamin K (7) ETOH abuse Current Visit: No Status: Chronic Assessment and plan: Patient counseled to quit drinking. She agreed. (8) Macrocytic anemia Current Visit: No Status: Acute Assessment and plan: Hemoglobin is 8.7. Hemodynamically is stable. Close monitoring. (9) Thrombocytopenia Current Visit: Yes Status: Chronic Assessment and plan: Chronic. No bleeding. Close monitoring. (10) Hypomagnesemia Current Visit: Yes Status: Acute Assessment and plan: replete (11) Hypokalemia Current Visit: No Status: Acute Assessment and plan: replete - Subjective Interval history: Patient is eager to go home. She is AOx3 and complains of mild abdominal pain. - Constitutional Vitals: Temp Pulse Resp BP Pulse Ox 98.3 F 62 18 118/59 94 06/12/16 15:59 06/12/16 15:59 06/12/16 15:59 06/12/16 15:59 06/12/16 15:59 General appearance: Present: cooperative, A&O X 3, pleasant, no acute distress, answers questions appropriately - Eye Eye exam: Present: PERRL, scleral icterus - Neck Neck exam general surgery: Present: supple, trachea midline. Absent: lymphadenopathy - Respiratory Respiratory exam: Present: CTAB - Cardiovascular Cardiovascular exam: Present: RRR - GI/Abdominal GI/Abdominal exam: Present: normal bowel sounds, soft. Absent: distended, tenderness - Extremities Exam Extremities exam: Present: pedal edema - Neurological Exam Neurological exam: Present: alert, oriented X3, no focal deficits, strengths equal and symetr throughout. Absent: facial droop, speech deficit Additional comments: Positive asterixis - Skin Skin exam: Present: dry (jaundice) Internal Medicine: Result - Labs CBC & Chem 7: 06/12/16 05:44 06/12/16 13:05 Labs: Short CBC 06/12/16 Range/Units 05:44 WBC 6.0 (4.3-11.1) K/mcL Hgb 9.4 L (11.5-15.4) g/dL Hct 28.5 L (35.3-44.9) % Plt Count 71 L (140-400) K/mcL Neutrophils # 2.9 (1.6-8.9) K/mcL BMP 06/12/16 06/12/16 05:44 13:05 Sodium 135 L Potassium 2.9 L 4.4 D Chloride 102 Carbon Dioxide 22 BUN 12 Creatinine 1.09 Glucose 92 Calcium 7.9 L Urine 06/12/16 Range/Units Unknown Urine Color [place] A (Yellow) Urine Clarity T[place] A (Clear) Urine pH 5.5 (5.0-8.0) pH Units Ur Specific [place] > 1.030 H (1.010-1.025) Urine Protein Trace (Neg-Trace) mg/dL Urine Glucose (UA) Normal (Normal) mg/dL - ABG Interpretation ABG results: PT/INR, D-dimer PT 34.4 Seconds (9.4-12.1) H 06/11/16 04:53 - VTE Documentation of Mechanical Device: Graduated compression elastic hosiery Consult Discharge Plan - Plan Referrals: Sai Rivas MD [Primary Care Provider] -
[2016-06-12] MEDS: Furosemide 20 MG TABLET PO SCH (18:29)
[2016-06-13] MEDS: Ampicillin/Sulbactam 1,500 MG in 0.9 % Sodium Chloride Mini Bag 100 ML IVPB SCH ×2 (00:35→05:32)
[2016-06-13 05:48] LABS: Hematocrit 27.6 % (35.3-44.9); Hemoglobin 9.2 g/dL (11.5-15.4); Immature Granulocytes % 0.9 % (0-4); Immature Platelets 10.3 % (1.1-6.1); Lymphocytes # 0.9 K/mcL (0.6-4.6); Lymphocytes % 12.4 %; Mean Corpuscular HGB Conc 33.3 g/dL (31.6-35.5); Mean Corpuscular Hemoglobin 36.2 pg (28.0-33.3); Mean Corpuscular Volume 108.7 fL (83.0-100.0); Mean Platelet Volume 11.9 fL (9.4-12.4); Monocytes # 0.9 K/mcL (0.0-1.3); Monocytes % 12.5 %; Neutrophils # 5.1 K/mcL (1.6-8.9); Nucleated Red Blood Cells 0.4 /100 WBC (0); Red Blood Count 2.54 M/mcL (3.82-4.97); Red Cell Distribution Width 14.9 % (11.5-14.5); Segmented Neutrophils % 74.2 %
[2016-06-13 05:52] LABS: Platelet Count 73 K/mcL (140-400)
[2016-06-13 06:02] LABS: BUN/Creatinine Ratio 12 (6-26); Blood Urea Nitrogen 10 mg/dL (7-20); Calcium 7.8 mg/dL (8.6-10.8); Carbon Dioxide 23 mEq/L (19-29); Chloride 102 mEq/L (98-109); Glucose 186 mg/dL (70-99); Magnesium 1.2 mg/dL (1.6-2.6); Osmolality,Calculated 278 (280-300); Potassium 3.6 mEq/L (3.5-4.5); eGFR For African Americans > 60 (> 60); eGFR For Non-African Americans > 60 (> 60)
[2016-06-13 06:03] LABS: Sodium 132 mEq/L (136-145)
[2016-06-13] MEDS: MethylPREDNISolone 40 MG/ML VIAL IVP SCH (08:17)
[2016-06-13] MEDS: Pantoprazole 40 MG VIAL IVP SCH (08:17)
[2016-06-13] MEDS: Magnesium Oxide 400 MG TABLET PO SCH (08:18)
[2016-06-13] MEDS: Furosemide 20 MG TABLET PO SCH (08:18)
[2016-06-13] MEDS: Prenatal Vit/FA 1 EACH TABLET PO SCH (08:18)
[2016-06-13] MEDS ORDERED: Magnesium Sulfate 2 GM in D5% in Water 100 ML IVPB ONE (10:14)
[2016-06-13] MEDS ORDERED: Lactulose Oral Soln 20 GM/30 ML UDC PO SCH (10:30)
[2016-06-13 11:19] VITALS: BP 125/67
[2016-06-13] MEDS ORDERED: Fluconazole 40 MG/ML UDC PO ONE (11:40)
--- NOTE | 2016-06-13 11:42 | Discharge Summary ---
Date of Encounter: 06/13/16 Time of Encounter: 13:00 - Discharge Diagnosis (1) Abdominal pain Priority: Primary Status: Acute Qualifiers: Abdominal location: upper abdomen, unspecified Qualified Code(s): R10.10 - Upper abdominal pain, unspecified (2) Liver cirrhosis Priority: Secondary Status: Chronic Qualifiers: Hepatic cirrhosis type: alcoholic cirrhosis Ascites presence: with ascites Qualified Code(s): K70.31 - Alcoholic cirrhosis of liver with ascites (3) Acute hepatic encephalopathy Priority: Primary Status: Acute (4) Dental infection Priority: Secondary Status: Chronic (5) Cholelithiasis Priority: Secondary Status: Chronic Qualifiers: Cholelithiasis location: gallbladder Cholecystitis presence: with cholecystitis Cholecystitis acuity: acute and chronic Biliary obstruction: with biliary obstruction Qualified Code(s): K80.13 - Calculus of gallbladder with acute and chronic cholecystitis with obstruction (6) Coagulopathy Priority: Secondary Status: Chronic (7) ETOH abuse Priority: Primary Status: Chronic (8) Macrocytic anemia Priority: Secondary Status: Chronic (9) Thrombocytopenia Priority: Secondary Status: Chronic (10) Hypomagnesemia Priority: Primary Status: Acute (11) Hypokalemia Priority: Primary Status: Acute - Discharge Medications Prescriptions: LORazepam [Ativan] 0.25 mg PO DAILY #14 tablet Magnesium Oxide [Mag-Ox] 800 mg PO BID #120 tablet MethylPREDNISolone [Medrol] 8 mg PO AD #70 tablet Potassium Chloride 20 meq PO BID #60 tab.er.prt Rifaximin [Xifaxan] 400 mg PO BID 90 Days Spironolactone [Aldactone] 100 mg PO DAILY #60 tablet Ursodiol 300 mg PO BID #60 capsule Home Medications: Vits #90/Iron Fum/FA [ Formula Tablet] 1 tab PO DAILY 09/29/15 [History] Propranolol [Inderal] 10 mg PO TID 30 Days 10/01/15 [Rx] Omeprazole Magnesium [Prilosec Otc] 40 mg PO BID 30 Days 10/04/15 [Rx] Phytonadione [Mephyton] 5 mg PO DAILY #3 tablet 10/04/15 [Rx] Chlorhexidine Gluconate [Peridex] 15 ml MM TID 06/09/16 [History] Furosemide [Lasix] 20 mg PO BIDDIURETIC #0 tablet 04/14/17 [Rx] LORazepam [Ativan] 0.25 mg PO DAILY #14 tablet 06/13/16 [Rx] Lactulose [Enulose] 30 ml PO TID #0 06/13/16 [Rx] Magnesium Oxide [Mag-Ox] 800 mg PO BID #120 tablet 06/13/16 [Rx] MethylPREDNISolone [Medrol] 8 mg PO AD #70 tablet 06/13/16 [Rx] Potassium Chloride 20 meq PO BID #60 tab.er.prt 06/13/16 [Rx] Rifaximin [Xifaxan] 400 mg PO BID 90 Days 06/13/16 [Rx] Spironolactone [Aldactone] 100 mg PO DAILY #60 tablet 06/13/16 [Rx] Ursodiol 300 mg PO BID #60 capsule 06/13/16 [Rx] Allergies/Adverse Reactions: Allergies No Known Allergies Allergy (Verified 09/29/15 15:44) Date of admission: 06/09/16 15:07 Primary care physician: Sai Rivas MD Consults: 06/09/16 15:19 Consult to Gastroenterology [CONS] Routine Consulting Provider: Gastroenterology [facility] Reason for Consult: 55F with Chololithiasis, likely cholecystitis on CT, but with ESLD not a surgical candidate Call Completed: Yes 06/10/16 12:09 Consult to Palliative Care [CONS] Routine Comment: liver cirrhosis. alcohol abuse. MELD 28. Consulting Provider: Palliative Care [facility] - Patient Status Disposition: Home, Self-Care Condition: Good Functional capacity at discharge: independent ambulation Overall status at discharge: patient is progressing back to baseline - Discharge Instructions Follow Up With: Sai Rivas MD [Primary Care Provider] - 06/19/16 4:00 pm (f/u in 1 week. f/ u moises mckenzie in 2-3 weeks) Pancho Mckenzie MD [Partnered Physician] - (web request sent on 06/13.) Additional Instructions: PLEASE STOP DRINKING ALCOHOL. take all your medications. you need to take lactulose until you have 4 bowel movements every day. follow up with your primary care doctor next week and with Dr Mckenzie (liver doctor ) in 2 weeks. - Diet and Activity Activity: resume usual activities as tolerated Diet: low fat, low cholesterol Interval History: patient has no complains. she is eager to go home. Hospital course: Ms. Scott is a 55 year old female with past medical history of alcoholic cirrhosis, hepatitis C infection, and alcohol abuse presented with a chief complain of upper abdominal pain and confusion. She was admitted with diagnosis of acute hepatic encephalopathy and acute acholic hepatitis in the setting of chronic liver cirrhosis. Her home dose of lactulose was increased for a goal of 4 bowel movements daily and her electrolytes were corrected with clinical improvement of her mental status. She was started on IV glucocorticosteroid and was discharged home on a taper dose of Medrol. I talked to the patient and her mother and I explained her diagnosis, treatment options and prognosis if she continues to drink alcohol. They verbalized understanding and agree with the plan. The patient agreed on quitting drinking alcohol. PLAN: Patient was discharged on a low-dose of lorazepam to prevent alcohol withdrawal symptoms. Follow-up with Dr. Mckenzie in 1-2 weeks. Follow-up with her primary care physician next week for liver cirrhosis and alcohol cessation. - Time Spent with Patient Total time spent providing and/or coordinating discharge services: - Constitutional Vitals: Temp Pulse Resp BP Pulse Ox 98.1 F 64 18 125/67 98 06/13/16 11:13 06/13/16 11:13 06/13/16 11:13 06/13/16 11:13 06/13/16 11:13 General appearance: Present: cooperative, A&O X 3, pleasant, no acute distress, answers questions appropriately - Eye Eye exam: Present: PERRL, scleral icterus - Respiratory Respiratory exam: Present: CTAB - Cardiovascular Cardiovascular exam: Present: RRR - GI/Abdominal GI/Abdominal exam: Present: normal bowel sounds, soft. Absent: distended, tenderness - Extremities Exam Extremities exam: Present: pedal edema - Back Exam Back exam: Absent: CVA tenderness (L), CVA tenderness (R) - Neurological Exam Neurological exam: Present: alert, oriented X3. Absent: facial droop, speech deficit - Skin Skin exam: Absent: rash (jaundice) - VTE Documentation of Mechanical Device: Graduated compression elastic hosiery
[2016-06-13] MEDS ORDERED: Fluconazole 100 MG TABLET PO ONE (12:00)
[2016-06-13] MEDS ORDERED: Magnesium Sulfate 1 GM in D5% in Water 100 ML IVPB ONE (14:00)
== END 2016-06-13 13:43 | disposition home or self-care (01) ==
LOC: EMEROO 10:45 → 3ANU 10:45 → SUATTDRO 15:23 → 3ANU 17:03
PROVIDERS: ADMIT Nurse Practitioner Acute Care; ATTEND Internal Medicine

== ENCOUNTER 2016-07-09 09:30 | Inpatient (IN) ==
--- NOTE | 2016-07-09 09:53 | Emergency Department Note ---
Disposition Clinical Impression: Sepsis, Altered mental status, Pneumonia, Acute renal failure, Septic shock, Hyperkalemia, Liver failure Disposition: Admitted As Inpatient Condition: Serious Time of Disposition: 13:04 Altered Mental Status HPI - General Chief Complaint: ED Altered Mental Status Stated Complaint: AMS Time Seen by Provider: 07/09/16 09:33 Source: family, EMS Limitations: no limitations Nursing Notes Reviewed: Yes Vital Signs Reviewed: Yes - History of Present Illness HPI Narrative: Female patient brought in by EMS for altered level consciousness. Last known well was 5:00 last night. Does have a history of hepatic failure. - Related Data Home Medications Medication Instructions Recorded Confirmed Vits #90/Iron Fum/FA 1 tab PO DAILY 09/29/15 07/09/16 [ Formula Tablet] Chlorhexidine Gluconate [Peridex] 15 ml MM TID 06/09/16 07/09/16 Naltrexone HCl [Revia] 50 mg PO 07/09/16 07/09/16 Penicillin VK [Pencillin VK] 500 mg PO BID 07/09/16 07/09/16 Previous Rx's Medication Instructions Recorded Propranolol [Inderal] 10 mg PO TID 30 Days 10/01/15 Furosemide [Lasix] 20 mg PO BIDDIURETIC #0 tablet 06/13/16 LORazepam [Ativan] 0.25 mg PO DAILY #14 tablet 06/13/16 Lactulose [Enulose] 30 ml PO TID #0 06/13/16 Magnesium Oxide [Mag-Ox] 800 mg PO BID #120 tablet 06/13/16 Potassium Chloride 20 meq PO BID #60 tab.er.prt 06/13/16 Rifaximin [Xifaxan] 400 mg PO BID 90 Days 06/13/16 Spironolactone [Aldactone] 100 mg PO DAILY #60 tablet 06/13/16 Ursodiol 300 mg PO BID #60 capsule 06/13/16 Allergies Allergy/AdvReac Type Severity Reaction Status Date / Time No Known Allergies Allergy Verified 09/29/15 15:44 Limitations: ROS unobtainable due to patients medical condition Past Medical History - Past Medical History Medical history: Reports: cirrhosis, GERD, hepatitis, liver disease Surgical history: Reports: other Psychiatric history: Reports: no psych history - Social History Smoking Status: Current every day smoker Smokeless Tobacco Status: No Alcohol use: Reports: heavy Drug use: Reports: none Physical Exam - General Limitations: altered mental status General appearance: other (altered loc) - Head Head exam: atraumatic, normocephalic - Eye Eye exam: Present: normal appearance, PERRL, scleral icterus - ENT ENT exam: mucous membranes dry, other (fould odor and very dry crusted sputum to mouth) - Neck Neck exam: Present: normal inspection, full ROM, trachea midline. Absent: meningismus, lymphadenopathy - Chest Chest inspection: Present: normal inspection, symmetric chest wall rise - Respiratory Respiratory exam: Present: other (rhonchi diffusley) - Cardiovascular Cardiovascular exam: Present: regular rate, tachycardia, normal heart sounds - Abdominal Exam Abdominal exam: Present: soft, Non-Tender, normal bowel sounds - Extremities Exam Extremities exam: Present: normal inspection, full ROM. Absent: pedal edema - Back Exam Back exam: Present: normal inspection - Skin Skin exam: Present: warm, dry, intact, other (jose jaundice) Course Course Narrative: Female patient brought in via EMS for altered mental status. Her last was 5 PM yesterday evening. She also presents with her blind mother who is not a very good historian. She just keeps answering questions with it should be in her chart. Mother states the patient does have history of liver failure and was told she had 6 months to live. That is the extent of the history I can get from her. Patient does have an altered mental status. She knows her name and responds to painful stimuli. She is maintaining her own airway at this time. She is hypotensive in the 70s systolic. We are beginning a fluid bolus at this time and have placed the patient in Trendelenburg position. She has a foul odor to her. She is defecated on herself. She is jaundiced in color her sclerae are yellow. Her abdomen is mildly distended with a prominent fluid wave. Her lung sounds are rhonchorous throughout. I do not notice any edema to any of her extremities. - Reevaluation(s) Reevaluation #1: Patient was placed on BiPAP due to respiratory distress and inability to maintain an oxygen saturation. This increased patient's oxygen saturation mid 90s. She remained hypotensive throughout her stay here despite her fluid bolus. A central line was placed in her right femoral vein and pressors were started. She is noted to have bilateral pneumonia we have started triple antibiotic therapy for this. Patient is in critical condition. We will admit patient for sepsis bilateral pneumonia hepatic failure hypotension requiring pressors. Time: 12:32 - Consultations Consultation #1: Dr Nielsen accepted Pt in stable condition. He is requesting a Ct head and chest. Time: 11:48 Vital Signs Temperature 0 F L 07/09/16 09:34 Pulse Rate 80 07/09/16 09:34 Respiratory Rate 18 07/09/16 09:34 Blood Pressure 72/58 07/09/16 09:34 O2 Sat by Pulse Oximetry 95 07/09/16 09:34 Temperature 97.8 F 07/09/16 10:28 Pulse Rate 78 07/09/16 15:47 Respiratory Rate 24 07/09/16 16:05 Blood Pressure 98/72 07/09/16 16:05 O2 Sat by Pulse Oximetry 99 07/09/16 15:47 Oxygen Delivery Oxygen Delivery Bipap Procedures - Central Line Placement Right Femoral Central Line Inserted*: Yes Central Line Catheter Replacement*: Yes Central Line Insertion: emergent Consent Obtained: verbal consent Procedural Pause: verify patient name and date of Patient Placed on Monitor/Pulse Ox: Yes During the Procedure: clinician is wearing sterile gloves, cap, mask,& gown during insertion, sterile field and sterile technique are maintained, patient's face is covered with drape or mask and wearing a cap, everyone in room is wearing a mask Central Line Prep: Chlorhexidine scrub Prep the Procedure Site: apply chloraprep to the skin using a back and forth scrubbing motion, apply chloraprep for 30 seconds (upper body), 1-2 min ( femoral sites), allow prep to dry, drape the patient with a full body drape Local Anesthetic: lidocaine 1% Amount of anesthesia used (mL): 5 Ultrasound Used for Placement: Yes Central Line Lumen Inserted: triple Post Procedure: sutured in place, good blood return, all ports aspirated, flushed, capped, sterile dressing applied, guide wire removed and visualized, dressing is dated Patient Tolerated Procedure: well Complications: none Name of Clinician Inserting Central Line: Samina Davies Clinician Assisting/Completing Checklist: Kory Date: 07/09/16 Time: 12:02 Altered Mental Status - Medical Records Medical records reviewed: Yes I reviewed the patient's medical records. - Lab Data Lab results reviewed: Yes I reviewed the patient's lab results. Result diagrams: 07/09/16 10:35 07/09/16 10:35 Lab Results 07/09/16 07/09/16 07/09/16 Range/Units 09:52 09:52 09:52 WBC (4.3-11.1) K/mcL RBC (3.82-4.97) M/mcL Hgb (11.5-15.4) g/dL Hct (35.3-44.9) % MCV (83.0-100.0) fL MCH (28.0-33.3) pg MCHC (31.6-35.5) g/dL RDW (11.5-14.5) % Plt Count (140-400) K/mcL MPV (9.4-12.4) fL Seg Neutrophils % % Band Neutrophils % (0-4) % Lymphocytes % % Monocytes % % Neutrophils # (1.6-8.9) K/mcL Lymphocytes # (0.6-4.6) K/mcL Monocytes # (0.0-1.3) K/mcL Nucleated RBCs/100 WBC (0) /100 WBC Reactive Lymphocytes (Not Present) Toxic Granulation (Not Present) Toxic Vacuolation (Not Present) Dohle Bodies (Not Present) Platelet Estimate (Normal) Poikilocytosis (Not Present) Anisocytosis (Not Present) Macrocytosis (Not Present) Acanthocytes (Spur) (Not Present) PT (9.4-12.1) Seconds INR APTT (26.0-36.0) Seconds VBG pH (7.32-7.42) pH Units VBG pCO2 (41-51) mmHg VBG pO2 (25-40) mmHg VBG HCO3 (21-27) mEq/L Sodium (136-145) mEq/L Potassium (3.5-4.5) mEq/L Chloride (98-109) mEq/L Carbon Dioxide (19-29) mEq/L BUN (7-20) mg/dL Creatinine (0.57-1.11) mg/dL Est GFR ( Amer) (> 60) Est GFR (Non-Af Amer) (> 60) BUN/Creatinine Ratio (6-26) Glucose (70-99) mg/dL Calculated Osmolality (280-300) Lactic Acid (0.5-2.2) mmol/L Calcium (8.6-10.8) mg/dL Total Bilirubin (0.2-1.2) mg/dL Direct Bilirubin (0.0-0.5) mg/dL Indirect Bilirubin (0.0-1.2) mg/dL AST (5-34) Units/L ALT (0-55) Units/L Alkaline Phosphatase (38-126) Units/L Ammonia (18-72) mcmol/L Creatine Kinase (29-168) Units/L Troponin I (0-0.03) ng/mL Serum Total Protein (6.0-8.3) g/dL Albumin (3.5-5.0) g/dL Globulin (2.4-3.5) g/dL Albumin/Globulin Ratio (1.1-2.2) Ur Specimen Adequacy See below A Urine Color Susy A (Yellow) Urine Clarity Turbid A (Clear) Urine pH 5.5 (5.0-8.0) pH Units Ur Specific [place] 1.016 (1.010-1.025) Urine Protein Trace (Neg-Trace) mg/dL Urine Glucose (UA) 100 H (Normal) mg/dL Urine Ketones Trace H (Negative) mg/dL Urine Blood Negative (Negative) Urine Nitrite Positive A (Negative) Urine Bilirubin Large H (Negative) Urine Urobilinogen Normal (Normal) mg/dL Ur Leukocyte Esterase Small H (Negative) Urine Microscopic RBC 0-3 (0-3) per hpf Urine Microscopic WBC 30-50 H (0-3) per hpf Ur Squamous Epith Cells Many H (None-Few) per lpf Ur Transition Epith Cell Few (None-Few) per hpf Ur Renal Epithelial Cell Few (None-Few) per hpf Urine Bacteria Many H (None-Few) per hpf Hyaline Casts Test Not Performed Other Casts See Below A Urine Yeast Test Not Performed Ur Culture Indicated? YES A (NO) Stool Occult Blood Negative (Negative) Stl C. cayetanensis PCR (Not detect) Stool Rotavirus A PCR (Not detect) Stl Adenov F 40/41 PCR (Not detect) Stool Astrovirus (PCR) (Not detect) Stool Campylobacter PCR (Not detect) Stl C. diff Tox A/B PCR (Not detect) Stool Cryptosporidium PCR (Not detect) Stl Sh Tox Pr E STEC PCR (Not detect) Stool E coli O157 PCR (Not detect) Stl Enterotoxigenic E PCR (Not detect) Stool EPEC (PCR) (Not detect) Stool EAEC (PCR) (Not detect) Stl E. histolytica PCR (Not detect) Stool Giardia Lamblia PCR (Not detect) Stool Salmonella PCR (Not detect) Stool Sapovirus (PCR) (Not detect) Stl P. shigelloides PCR (Not detect) Stl Shigella/EIEC PCR (Not detect) St Y.enterocolitica PCR (Not detect) Stool Vibrio (PCR) (Not detect) Stl Vibrio cholerae PCR (Not detect) Stl Norovirus GI/GII PCR (Not detect) Stl GI Panel (PCR) Com Urine Opiates Screen Negative (Kzftlg=113) ng/mL Ur Barbiturates Screen Negative (Tieogp=241) ng/mL Ur Phencyclidine Scrn Negative (Cutoff=25) ng/mL Ur Amphetamines Screen Negative (Awolha=0870) ng/mL U Benzodiazepines Scrn Negative (Yquppv=660) ng/mL Urine Cocaine Screen Negative (Cutoff= 300) ng/mL U Marijuana (THC) Screen Negative (Cutoff = 50) ng/mL Ethyl Alcohol (0-10) mg/dL 07/09/16 07/09/16 07/09/16 Range/Units 09:52 10:10 10:35 WBC 11.5 H (4.3-11.1) K/mcL RBC 3.50 L (3.82-4.97) M/mcL Hgb 12.5 (11.5-15.4) g/dL Hct 35.7 (35.3-44.9) % MCV 102.0 H D (83.0-100.0) fL MCH 35.7 H (28.0-33.3) pg MCHC 35.0 (31.6-35.5) g/dL RDW 16.0 H (11.5-14.5) % Plt Count 55 L (140-400) K/mcL MPV 11.8 (9.4-12.4) fL Seg Neutrophils % 40.0 % Band Neutrophils % 48.0 H (0-4) % Lymphocytes % 4.0 % Monocytes % 8.0 % Neutrophils # 10.1 H (1.6-8.9) K/mcL Lymphocytes # 0.5 L (0.6-4.6) K/mcL Monocytes # 0.9 (0.0-1.3) K/mcL Nucleated RBCs/100 WBC 1.3 H (0) /100 WBC Reactive Lymphocytes Present A (Not Present) Toxic Granulation Present A (Not Present) Toxic Vacuolation Present A (Not Present) Dohle Bodies Present A (Not Present) Platelet Estimate Decreased L (Normal) Poikilocytosis 1+ A (Not Present) Anisocytosis 1+ A (Not Present) Macrocytosis Present A (Not Present) Acanthocytes (Spur) 3+ A (Not Present) PT (9.4-12.1) Seconds INR APTT (26.0-36.0) Seconds VBG pH 7.33 (7.32-7.42) pH Units VBG pCO2 24 L (41-51) mmHg VBG pO2 80 H (25-40) mmHg VBG HCO3 12.7 L (21-27) mEq/L Sodium (136-145) mEq/L Potassium (3.5-4.5) mEq/L Chloride (98-109) mEq/L Carbon Dioxide (19-29) mEq/L BUN (7-20) mg/dL Creatinine (0.57-1.11) mg/dL Est GFR ( Amer) (> 60) Est GFR (Non-Af Amer) (> 60) BUN/Creatinine Ratio (6-26) Glucose (70-99) mg/dL Calculated Osmolality (280-300) Lactic Acid (0.5-2.2) mmol/L Calcium (8.6-10.8) mg/dL Total Bilirubin (0.2-1.2) mg/dL Direct Bilirubin (0.0-0.5) mg/dL Indirect Bilirubin (0.0-1.2) mg/dL AST (5-34) Units/L ALT (0-55) Units/L Alkaline Phosphatase (38-126) Units/L Ammonia (18-72) mcmol/L Creatine Kinase (29-168) Units/L Troponin I (0-0.03) ng/mL Serum Total Protein (6.0-8.3) g/dL Albumin (3.5-5.0) g/dL Globulin (2.4-3.5) g/dL Albumin/Globulin Ratio (1.1-2.2) Ur Specimen Adequacy Urine Color (Yellow) Urine Clarity (Clear) Urine pH (5.0-8.0) pH Units Ur Specific [place] (1.010-1.025) Urine Protein (Neg-Trace) mg/dL Urine Glucose (UA) (Normal) mg/dL Urine Ketones (Negative) mg/dL Urine Blood (Negative) Urine Nitrite (Negative) Urine Bilirubin (Negative) Urine Urobilinogen (Normal) mg/dL Ur Leukocyte Esterase (Negative) Urine Microscopic RBC (0-3) per hpf Urine Microscopic WBC (0-3) per hpf Ur Squamous Epith Cells (None-Few) per lpf Ur Transition Epith Cell (None-Few) per hpf Ur Renal Epithelial Cell (None-Few) per hpf Urine Bacteria (None-Few) per hpf Hyaline Casts Other Casts Urine Yeast Ur Culture Indicated? (NO) Stool Occult Blood (Negative) Stl C. cayetanensis PCR Not detected (Not detect) Stool Rotavirus A PCR Not detected (Not detect) Stl Adenov F 40/41 PCR Not detected (Not detect) Stool Astrovirus (PCR) Not detected (Not detect) Stool Campylobacter PCR Not detected (Not detect) Stl C. diff Tox A/B PCR Not detected (Not detect) Stool Cryptosporidium PCR Not detected (Not detect) Stl Sh Tox Pr E STEC PCR Not detected (Not detect) Stool E coli O157 PCR Not detected (Not detect) Stl Enterotoxigenic E PCR Not detected (Not detect) Stool EPEC (PCR) Not detected (Not detect) Stool EAEC (PCR) Not detected (Not detect) Stl E. histolytica PCR Not detected (Not detect) Stool Giardia Lamblia PCR Not detected (Not detect) Stool Salmonella PCR Not detected (Not detect) Stool Sapovirus (PCR) Not detected (Not detect) Stl P. shigelloides PCR Not detected (Not detect) Stl Shigella/EIEC PCR Not detected (Not detect) St Y.enterocolitica PCR Not detected (Not detect) Stool Vibrio (PCR) Not detected (Not detect) Stl Vibrio cholerae PCR Not detected (Not detect) Stl Norovirus GI/GII PCR Not detected (Not detect) Stl GI Panel (PCR) Com See below Urine Opiates Screen (Eweclt=018) ng/mL Ur Barbiturates Screen (Lyjoge=027) ng/mL Ur Phencyclidine Scrn (Cutoff=25) ng/mL Ur Amphetamines Screen (Vxaead=5870) ng/mL U Benzodiazepines Scrn (Tojxpf=417) ng/mL Urine Cocaine Screen (Cutoff= 300) ng/mL U Marijuana (THC) Screen (Cutoff = 50) ng/mL Ethyl Alcohol (0-10) mg/dL 07/09/16 07/09/16 07/09/16 Range/Units 10:35 10:35 10:35 WBC (4.3-11.1) K/mcL RBC (3.82-4.97) M/mcL Hgb (11.5-15.4) g/dL Hct (35.3-44.9) % MCV (83.0-100.0) fL MCH (28.0-33.3) pg MCHC (31.6-35.5) g/dL RDW (11.5-14.5) % Plt Count (140-400) K/mcL MPV (9.4-12.4) fL Seg Neutrophils % % Band Neutrophils % (0-4) % Lymphocytes % % Monocytes % % Neutrophils # (1.6-8.9) K/mcL Lymphocytes # (0.6-4.6) K/mcL Monocytes # (0.0-1.3) K/mcL Nucleated RBCs/100 WBC (0) /100 WBC Reactive Lymphocytes (Not Present) Toxic Granulation (Not Present) Toxic Vacuolation (Not Present) Dohle Bodies (Not Present) Platelet Estimate (Normal) Poikilocytosis (Not Present) Anisocytosis (Not Present) Macrocytosis (Not Present) Acanthocytes (Spur) (Not Present) PT 39.1 H (9.4-12.1) Seconds INR 3.5 APTT 38.3 H (26.0-36.0) Seconds VBG pH (7.32-7.42) pH Units VBG pCO2 (41-51) mmHg VBG pO2 (25-40) mmHg VBG HCO3 (21-27) mEq/L Sodium 133 L (136-145) mEq/L Potassium 5.3 H (3.5-4.5) mEq/L Chloride 101 (98-109) mEq/L Carbon Dioxide 14 L (19-29) mEq/L BUN 75 H (7-20) mg/dL Creatinine 6.42 H (0.57-1.11) mg/dL Est GFR ( Amer) 8 L (> 60) Est GFR (Non-Af Amer) 7 L (> 60) BUN/Creatinine Ratio 12 (6-26) Glucose 83 (70-99) mg/dL Calculated Osmolality 297 (280-300) Lactic Acid (0.5-2.2) mmol/L Calcium 7.9 L (8.6-10.8) mg/dL Total Bilirubin 18.3 H (0.2-1.2) mg/dL Direct Bilirubin 12.7 H (0.0-0.5) mg/dL Indirect Bilirubin 5.6 H (0.0-1.2) mg/dL AST 117 H (5-34) Units/L ALT 108 H (0-55) Units/L Alkaline Phosphatase 111 (38-126) Units/L Ammonia 39 (18-72) mcmol/L Creatine Kinase 63 (29-168) Units/L Troponin I (0-0.03) ng/mL Serum Total Protein 5.8 L (6.0-8.3) g/dL Albumin 1.5 L (3.5-5.0) g/dL Globulin 4.3 H (2.4-3.5) g/dL Albumin/Globulin Ratio 0.3 L (1.1-2.2) Ur Specimen Adequacy Urine Color (Yellow) Urine Clarity (Clear) Urine pH (5.0-8.0) pH Units Ur Specific [place] (1.010-1.025) Urine Protein (Neg-Trace) mg/dL Urine Glucose (UA) (Normal) mg/dL Urine Ketones (Negative) mg/dL Urine Blood (Negative) Urine Nitrite (Negative) Urine Bilirubin (Negative) Urine Urobilinogen (Normal) mg/dL Ur Leukocyte Esterase (Negative) Urine Microscopic RBC (0-3) per hpf Urine Microscopic WBC (0-3) per hpf Ur Squamous Epith Cells (None-Few) per lpf Ur Transition Epith Cell (None-Few) per hpf Ur Renal Epithelial Cell (None-Few) per hpf Urine Bacteria (None-Few) per hpf Hyaline Casts Other Casts Urine Yeast Ur Culture Indicated? (NO) Stool Occult Blood (Negative) Stl C. cayetanensis PCR (Not detect) Stool Rotavirus A PCR (Not detect) Stl Adenov F 40/41 PCR (Not detect) Stool Astrovirus (PCR) (Not detect) Stool Campylobacter PCR (Not detect) Stl C. diff Tox A/B PCR (Not detect) Stool Cryptosporidium PCR (Not detect) Stl Sh Tox Pr E STEC PCR (Not detect) Stool E coli O157 PCR (Not detect) Stl Enterotoxigenic E PCR (Not detect) Stool EPEC (PCR) (Not detect) Stool EAEC (PCR) (Not detect) Stl E. histolytica PCR (Not detect) Stool Giardia Lamblia PCR (Not detect) Stool Salmonella PCR (Not detect) Stool Sapovirus (PCR) (Not detect) Stl P. shigelloides PCR (Not detect) Stl Shigella/EIEC PCR (Not detect) St Y.enterocolitica PCR (Not detect) Stool Vibrio (PCR) (Not detect) Stl Vibrio cholerae PCR (Not detect) Stl Norovirus GI/GII PCR (Not detect) Stl GI Panel (PCR) Com Urine Opiates Screen (Flkoai=624) ng/mL Ur Barbiturates Screen (Jgcirm=691) ng/mL Ur Phencyclidine Scrn (Cutoff=25) ng/mL Ur Amphetamines Screen (Vbplmw=5260) ng/mL U Benzodiazepines Scrn (Ebxear=310) ng/mL Urine Cocaine Screen (Cutoff= 300) ng/mL U Marijuana (THC) Screen (Cutoff = 50) ng/mL Ethyl Alcohol < 10 (0-10) mg/dL 07/09/16 07/09/16 Range/Units 10:35 10:35 WBC (4.3-11.1) K/mcL RBC (3.82-4.97) M/mcL Hgb (11.5-15.4) g/dL Hct (35.3-44.9) % MCV (83.0-100.0) fL MCH (28.0-33.3) pg MCHC (31.6-35.5) g/dL RDW (11.5-14.5) % Plt Count (140-400) K/mcL MPV (9.4-12.4) fL Seg Neutrophils % % Band Neutrophils % (0-4) % Lymphocytes % % Monocytes % % Neutrophils # (1.6-8.9) K/mcL Lymphocytes # (0.6-4.6) K/mcL Monocytes # (0.0-1.3) K/mcL Nucleated RBCs/100 WBC (0) /100 WBC Reactive Lymphocytes (Not Present) Toxic Granulation (Not Present) Toxic Vacuolation (Not Present) Dohle Bodies (Not Present) Platelet Estimate (Normal) Poikilocytosis (Not Present) Anisocytosis (Not Present) Macrocytosis (Not Present) Acanthocytes (Spur) (Not Present) PT (9.4-12.1) Seconds INR APTT (26.0-36.0) Seconds VBG pH (7.32-7.42) pH Units VBG pCO2 (41-51) mmHg VBG pO2 (25-40) mmHg VBG HCO3 (21-27) mEq/L Sodium (136-145) mEq/L Potassium (3.5-4.5) mEq/L Chloride (98-109) mEq/L Carbon Dioxide (19-29) mEq/L BUN (7-20) mg/dL Creatinine (0.57-1.11) mg/dL Est GFR ( Amer) (> 60) Est GFR (Non-Af Amer) (> 60) BUN/Creatinine Ratio (6-26) Glucose (70-99) mg/dL Calculated Osmolality (280-300) Lactic Acid 5.8 H* (0.5-2.2) mmol/L Calcium (8.6-10.8) mg/dL Total Bilirubin (0.2-1.2) mg/dL Direct Bilirubin (0.0-0.5) mg/dL Indirect Bilirubin (0.0-1.2) mg/dL AST (5-34) Units/L ALT (0-55) Units/L Alkaline Phosphatase (38-126) Units/L Ammonia (18-72) mcmol/L Creatine Kinase (29-168) Units/L Troponin I 0.25 H* (0-0.03) ng/mL Serum Total Protein (6.0-8.3) g/dL Albumin (3.5-5.0) g/dL Globulin (2.4-3.5) g/dL Albumin/Globulin Ratio (1.1-2.2) Ur Specimen Adequacy Urine Color (Yellow) Urine Clarity (Clear) Urine pH (5.0-8.0) pH Units Ur Specific [place] (1.010-1.025) Urine Protein (Neg-Trace) mg/dL Urine Glucose (UA) (Normal) mg/dL Urine Ketones (Negative) mg/dL Urine Blood (Negative) Urine Nitrite (Negative) Urine Bilirubin (Negative) Urine Urobilinogen (Normal) mg/dL Ur Leukocyte Esterase (Negative) Urine Microscopic RBC (0-3) per hpf Urine Microscopic WBC (0-3) per hpf Ur Squamous Epith Cells (None-Few) per lpf Ur Transition Epith Cell (None-Few) per hpf Ur Renal Epithelial Cell (None-Few) per hpf Urine Bacteria (None-Few) per hpf Hyaline Casts Other Casts Urine Yeast Ur Culture Indicated? (NO) Stool Occult Blood (Negative) Stl C. cayetanensis PCR (Not detect) Stool Rotavirus A PCR (Not detect) Stl Adenov F 40/41 PCR (Not detect) Stool Astrovirus (PCR) (Not detect) Stool Campylobacter PCR (Not detect) Stl C. diff Tox A/B PCR (Not detect) Stool Cryptosporidium PCR (Not detect) Stl Sh Tox Pr E STEC PCR (Not detect) Stool E coli O157 PCR (Not detect) Stl Enterotoxigenic E PCR (Not detect) Stool EPEC (PCR) (Not detect) Stool EAEC (PCR) (Not detect) Stl E. histolytica PCR (Not detect) Stool Giardia Lamblia PCR (Not detect) Stool Salmonella PCR (Not detect) Stool Sapovirus (PCR) (Not detect) Stl P. shigelloides PCR (Not detect) Stl Shigella/EIEC PCR (Not detect) St Y.enterocolitica PCR (Not detect) Stool Vibrio (PCR) (Not detect) Stl Vibrio cholerae PCR (Not detect) Stl Norovirus GI/GII PCR (Not detect) Stl GI Panel (PCR) Com Urine Opiates Screen (Bcfaai=770) ng/mL Ur Barbiturates Screen (Njyixl=029) ng/mL Ur Phencyclidine Scrn (Cutoff=25) ng/mL Ur Amphetamines Screen (Pvkqag=1283) ng/mL U Benzodiazepines Scrn (Dxykkb=072) ng/mL Urine Cocaine Screen (Cutoff= 300) ng/mL U Marijuana (THC) Screen (Cutoff = 50) ng/mL Ethyl Alcohol (0-10) mg/dL - Radiology Data Radiology results reviewed: Yes I reviewed the patient's radiology results. Chest X-Ray 07/09/16 09:33 IMPRESSION: 1. Interval development of multifocal airspace opacity throughout both lungs, left greater than right, felt to represent multifocal pneumonia given its quick interval development since the study of 06/09/2016. However, as the opacities have a somewhat nodular and masslike appearance, multifocal pulmonary nodules in the setting of metastatic disease is also a diagnostic consideration. Consider further evaluation with a chest CT with contrast. 2. Small left pleural effusion. D/ / Dante Parr MD / Dante Parr MD Interpreting Provider: Dante Parr MD - EKG Data EKG attestation: Yes I reviewed and interpreted this EKG. EKG results narrative: Sinus rhythm at a rate is 76. GA interval is 156. QRS duration is 183. QT is 480. QTC is 511. Patient has widened QRS complexes there is an increase in T- wave elevation in V2. These were also present in previous EKG dated 06/09/2016. Attestation Statement - Attestation Attestation: I examined this patient and my medical decision-making was reviewed with the [employer] PROGRAMMER/PA/Advanced Practice Nurse/Resident Physician. I agree with the documented findings, disposition and treatment plan as described except to the extent set forth below. 55-year-old female presents ED by EMS because lower mental status. 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 According to her mother she seemed to be normal yesterday afternoon and the last time she spoke her was at 5 PM yesterday. This morning she found her unresponsive in bed and EMS was called. EMS transported here uneventfully and did not require any intervention. She presents the ED hypotensive, somnolent, unable to provide a viable history. She was admitted one month ago at which time she remained full CODE STATUS. However, it is been made it clear to them that the degree of her cirrhosis is advanced and it is a terminal condition. Unknown of his been any recent fevers or cough. Very jaundice, altered female lying in the bed. Mouth is very dry. Sclera are very icteric. Neck supple without meningeal signs. Chest coarse rhonchi in all lung porter with diminished breath sounds bilaterally. No wheezes appreciated. Decent air movement. Cardiac exam tachycardic, regular chest wall nontender. Abdomen distended with fluid wave. Abdomen does not appear to be tender. Extremities warm and dry. Neurologically she moves all 4 extremities spontaneously and with painful stimulus. However she does not follow detailed commands. 20-gauge IV was in place and she was given fluid bolus for treatment of her hypotension. We are unable to get additional IV access and labs were difficult to obtain so a right femoral central line was placed under my direct supervision. She was given additional fluid for a total of 2500 mL but continues with profound hypotension. 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 She has a serum bicarbonate of 14. She was given 1 g of IV calcium chloride per the central line administered by Dr. Davies followed by 50 meq of sodium bicarbonate through the central line. There was a temporary increase in her blood pressure to 96 systolic. However, blood pressures trended downward again. She is making a small amount of urine in response to fluids. She has significant renal failure and a lactate of 5.3. Chest x-ray with multilobar pneumonia. She started on broad-spectrum antibiotic coverage and further aggressive IV fluids. Her MAP remains below 65 so levophed is started. D/W Dr. Nielsen to admit to ICU Due to her degree of coagulopathy she will undergo CT head He also requests CT chest for better eval of the multifocal pneumonia. Her mother, sister and aunt are all present and have chosen to make her a DNR CCA with no intubation. 12:40 Awaiting the levophed to be started. The high probability of a clinically significant, sudden or life threatening deterioration of the [cardiovascular, renal] system(s) required my full and direct attention, intervention and personal management. The aggregate critical care time was [45] minutes. This time is in addition to time spent performing reported procedures but includes the following: [x] Data Review and interpretation [x] Patient assessment and monitoring of vital signs [x] Documentation [x] Medication orders and management
[2016-07-09 10:06] LABS: Bilirubin,Urine Large (Negative); Blood,Urine Negative (Negative); Clarity,Urine Turbid (Clear); Glucose,Urine (UA) 100 mg/dL (Normal); Ketones,Urine Trace mg/dL (Negative); Leukocyte Esterase,Urine Small (Negative); Nitrite,Urine Positive (Negative); PH,Urine 5.5 pH Units (5.0-8.0); Protein,Urine Trace mg/dL (Neg-Trace); Specific Gravity,Urine 1.016 (1.010-1.025); Urobilinogen,Urine Normal (Normal)
[2016-07-09 10:09] LABS: RBC,Urine 0-3 per hpf (0-3); Squamous Epithelial Cell,Urine Many per lpf (None-Few); WBC,Urine 30-50 per hpf (0-3)
[2016-07-09 10:12] LABS: Amphetamine Screen,Urine Negative ng/mL (Cutoff=1000); Barbiturate Screen,Urine Negative ng/mL (Cutoff=200); Benzodiazepines Screen,Urine Negative ng/mL (Cutoff=200); Cannabinoid Screen,Urine Negative ng/mL (Cutoff = 50); Cocaine Screen,Urine Negative ng/mL (Cutoff= 300); Color,Urine Amber (Yellow); Opiate Screen,Urine Negative ng/mL (Cutoff=300); Phencyclidine Screen,Urine Negative ng/mL (Cutoff=25)
[2016-07-09 10:21] LABS: VBG HCO3 12.7 mEq/L (21-27); VBG PH 7.33 pH Units (7.32-7.42)
[2016-07-09] MEDS ORDERED: 0.9 % Sodium Chloride 1,000 ML ONE ×2 (10:21→10:37)
[2016-07-09 10:22] LABS: Renal Epithelial Cells,Urine Few per hpf (None-Few); Transitional Epi Cells,Urine Few per hpf (None-Few)
[2016-07-09 10:23] LABS: Bacteria,Urine Many per hpf (None-Few)
[2016-07-09 10:46] LABS: Hematocrit 35.7 % (35.3-44.9); Hemoglobin 12.5 g/dL (11.5-15.4); Mean Corpuscular Hemoglobin 35.7 pg (28.0-33.3); Mean Platelet Volume 11.8 fL (9.4-12.4); Nucleated Red Blood Cells 1.3 /100 WBC (0)
[2016-07-09] MEDS ORDERED: 0.9 % Sodium Chloride 500 ML IVC ONE ×2 (10:46→13:04)
[2016-07-09 10:48] LABS: Platelet Count 55 K/mcL (140-400)
[2016-07-09 10:52] LABS: INR 3.5; Prothrombin Time 39.1 Seconds (9.4-12.1)
[2016-07-09 10:54] LABS: Activated Partial Thrombo Time 38.3 Seconds (26.0-36.0)
[2016-07-09] MEDS ORDERED: Vancomycin 1,250 MG in D5% in Water 250 ML IVPB ONE (10:55)
[2016-07-09] MEDS ORDERED: Piperacillin/Tazobactam 3.375 GM in D5% in Water (Mini-Bag+) 100 ML IVPB ONE (10:55)
[2016-07-09] MEDS ORDERED: Levofloxacin 750 MG/150 ML 750 MG/150 ML BAG IVPB ONE (10:55)
[2016-07-09 11:01] LABS: Albumin/Globulin Ratio 0.3 (1.1-2.2); Alkaline Phosphatase 111 Units/L (38-126); Aspartate Amino Transferase 117 Units/L (5-34); BUN/Creatinine Ratio 12 (6-26); Bilirubin,Direct 12.7 mg/dL (0.0-0.5); Bilirubin,Indirect 5.6 mg/dL (0.0-1.2); Bilirubin,Total 18.3 mg/dL (0.2-1.2); Blood Urea Nitrogen 75 mg/dL (7-20); Calcium 7.9 mg/dL (8.6-10.8); Carbon Dioxide 14 mEq/L (19-29); Chloride 101 mEq/L (98-109); Creatine Kinase 63 Units/L (29-168); Globulin 4.3 g/dL (2.4-3.5); Glucose 83 mg/dL (70-99); Osmolality,Calculated 297 (280-300); Potassium 5.3 mEq/L (3.5-4.5); Sodium 133 mEq/L (136-145); Total Protein 5.8 g/dL (6.0-8.3); eGFR For African Americans 8 (> 60); eGFR For Non-African Americans 7 (> 60)
[2016-07-09 11:02] LABS: Albumin 1.5 g/dL (3.5-5.0); Ethanol < 10 mg/dL (0-10)
[2016-07-09] MEDS ORDERED: Sodium Bicarbonate 50 MEQ/50 ML VIAL IVP ONE (11:10)
[2016-07-09 11:13] LABS: Lymphocytes # 0.5 K/mcL (0.6-4.6); Monocytes # 0.9 K/mcL (0.0-1.3); Neutrophils # 10.1 K/mcL (1.6-8.9)
[2016-07-09 11:14] LABS: Alanine Aminotransferase 108 Units/L (0-55); Anisocytosis 1+ (Not Present); Dohle Bodies Present (Not Present); Macrocytosis Present (Not Present); Platelet Estimate Decreased (Normal); Reactive Lymphocytes Present (Not Present); Toxic Granulation Present (Not Present); Toxic Vacuolation Present (Not Present)
[2016-07-09 11:18] LABS: Acanthocytes 3+ (Not Present); Poikilocytosis 1+ (Not Present)
[2016-07-09] MEDS ORDERED: Norepinephrine 4 MG in D5% in Water 250 ML IVC SCH (11:45)
[2016-07-09] MEDS: 0.9 % Sodium Chloride 1,000 ML IVC SCH ×4 (12:17→18:55)
[2016-07-09] MEDS ORDERED: 0.9 % Sodium Chloride 1,000 ML IVC SCH ×3 (12:30→20:30)
[2016-07-09 14:01] LABS: Adenovirus F 40/41 PCR Not detected (Not detect); Astrovirus PCR Not detected (Not detect); Campylobacter by PCR Not detected (Not detect); Cryptosporidium by PCR Not detected (Not detect); Cyclospora cayetanensis PCR Not detected (Not detect); E. coli O157 by PCR Not detected (Not detect); Entamoeba histolytica PCR Not detected (Not detect); Enteroaggregative E.coli(EAEC) Not detected (Not detect); Enteropathogenic E.coli(EPEC) Not detected (Not detect); Enterotoxigenic E.coli (ETEC) Not detected (Not detect); Giardia lamblia PCR Not detected (Not detect); Norovirus GI/GII PCR Not detected (Not detect); Plesiomonas shigelloides PCR Not detected (Not detect); Rotavirus A PCR Not detected (Not detect); Salmonella PCR Not detected (Not detect); Sapovirus PCR Not detected (Not detect); Shig/EnteroinvasiveE coli EIEC Not detected (Not detect); Shigalike tox-prod E coli STEC Not detected (Not detect); Vibrio PCR Not detected (Not detect); Vibrio cholerae PCR Not detected (Not detect); Yersinia enterocolitica PCR Not detected (Not detect)
[2016-07-09 14:03] LABS: C.difficile Toxin A/B by PCR Not detected (Not detect)
[2016-07-09] MEDS ORDERED: Naloxone 0.4 MG/ML INJ IVP PRN (14:59)
--- NOTE | 2016-07-09 15:09 | Electrocardiograph Report ---
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
[2016-07-09] MEDS ORDERED: *HR* LORazepam 2 MG/ML VIAL IVP PRN (15:13)
--- NOTE | 2016-07-09 15:27 | Pulmonology History & Physical ---
<Sebastien Roland - Last Filed: 07/09/16 17:38> Date of Encounter: 07/09/16 Time of Encounter: 15:25 Assessment and Plan (1) Septic shock Current visit: Yes Status: Acute patient meets sepsis criteria with tachycardia, leukocytosis. Source of infection is likely from pneumonia. Possibly from aspiration. Additionally she has poor dentition and has been unable to have this corrected given her quite a lot of increased from her liver disease. She received adequate fluids for sepsis in the emergency department however she continues to be markedly hypotensive. Currently she is on Levothroid maintaining a map greater than 65. Lactic acid was initially elevated and is trending up. We have placed her on broad-spectrum antibiotics. Vancomycin will be dosed per pharmacy and renal function. I will also put her on Zosyn renally at just. Also will be on Levaquin renally adjusted. She does have some organ dysfunction with hypoxemia as well as renal failure. We will also continue to monitor urine output. Blood cultures were drawn in the emergency department we will follow-up with the results. (2) Bacterial pneumonia Current visit: Yes Status: Acute Most likely bacterial. We will check for urine strep and Legionella antigens. Bronchodilators. O2 as needed. (3) Alcoholic hepatitis Current visit: Yes Status: Acute She was admitted to the hospital just last month for alcoholic hepatitis. She was discharged with a taper of steroids. However patient does continue to drink. Her discriminate function has increased it is currently 143. This would indicate severe alcoholic hepatitis. Therefore we will treat her with prednisolone. (4) Cirrhosis Current visit: Yes Status: Acute Secondary to combination of hepatitis C and alcohol abuse. She has continued abusing alcohol. Continues to be an alcoholic hepatitis. Now with the elevated liver enzymes, markedly elevated bilirubin. Primarily conjugated. Most likely this is from hepatic dysfunction. MELD Na is 47. This is increased from previous admission. She is child Ramachandran class C. (5) Hepatitis C Current visit: Yes Status: Acute As stated above. (6) Acute renal failure Current visit: Yes Status: Acute She is receiving adequate IV fluids and IV. We will continue to keep her map greater than 65. We will continue to monitor closely. Adjust all medications to renal function. Avoid nephrotoxins as much as possible. We will continue to monitor it she does not improves may consider nephrology consultation if consistent with goals of care. (7) Hyperkalemia Current visit: Yes Status: Acute Mild she did receive bicarbonate calcium gluconate in the emergency department. We will repeat a BMP. (8) Leukocytosis Current visit: Yes Status: Acute Mild However she has marked bandemia 40% and also toxic granulations and Dohle bodies. (9) Hyperbilirubinemia Current visit: Yes Status: Acute Likely from alcoholic hepatitis. In the setting of septic shock. Also likely has a component of shock liver as well. Continue to follow. (10) Sinus tachycardia Current visit: Yes Status: Acute Secondary to sepsis. Continue to treat underlying cause. (11) Hypoalbuminemia Current visit: Yes Status: Acute Also nutrition. (12) Metabolic acidosis Current visit: Yes Status: Acute Anion gap of 18 upon admission. Her bicarbonate was 14. She did receive an amp of sodium bicarbonate in the emergency department. We will repeat her labs if not corrected she may need a bicarbonate drip. We will also get a VBG as well. (13) Lactic acidosis Current visit: Yes Status: Acute Trending up. Continue norepinephrine with map greater than 65. (14) Macrocytosis Current visit: Yes Status: Acute She has a history of macrocytic anemia. Currently her hemoglobin is normal however this is most likely due to concentration from her sepsis and hypoperfusion. Secondary to cirrhosis. (15) Thrombocytopenia Current visit: Yes Status: Acute Acute on chronic. Secondary to cirrhosis. No active bleeding at this time. No need for transfusion the last or platelets drop below 10,000 or if she develops active bleeding. Due to monitor. (16) Goals of care, counseling/discussion Current visit: Yes Status: Acute This is a patient with baseline severe liver disease. She has had alcoholic hepatitis in the past and continues to consume alcohol. She now presents with pneumonia, septic shock, renal failure, and worsening liver function. This patient Has a very poor prognosis. It is quite possible that she may pass overnight. I had a long discussion with the family. They state patient would not want CPR or intubation. They are ok with Vassopressor agents. They do not want a second agent added. Family are continuing to discuss goals of care. May possibly transition to comfort care tomorrow. We will also consult palliative if she dose survive the night to see if she would be a candidate for possible hospice ( inpatient) (17) Coagulopathy Current visit: Yes Status: Acute secondary to liver disease. Chronic (18) ETOH abuse Current visit: Yes Status: Acute (19) Acute hypoxemic respiratory failure Current visit: Yes Status: Acute continue Bipap as needed. secondary to multifocal pneumonia. (20) Malnutrition Current visit: Yes Status: Acute (21) Medical non-compliance Current visit: Yes Status: Acute patient still consumes alcohol (22) MODS (multiple organ dysfunction syndrome) Current visit: Yes Status: Acute Renal,liver, and pulmonary dysfunction. (23) DVT prophylaxis Current visit: Yes Status: Acute No Pharmicologic DVT prophylaxis as she has an INR of 3.5 and platelets are 55. Protonix for GI prophylaxis. Neuro: Metabolic encephalopathy. Secondary to renal and liver failure HEENT: Poor dentition Heart: Septic shock. Continue levophed with goal MAP of 65 Pulm: Pneumina Likely bacterial. Treatment as stated above. hypoxemic respiratory failure. On Bipap GI: Cirrhosis/ Hepatitis C/Alcoholic hepaittis. Prednisilone. Continue rifamixin and lactulose. MSK: No issues at this time. Renal: Acute renal failure. Secondary to shock . Will have a low rate of IV fluids. We will attempt to keep from fluid overloading her. Heme: Coagulopathy from renal failure. Leukocytosis and macrocytosis. Endocrine: Will check blood glucose Q 6H Integument: Routine skin care. Metabolic: Encephalopathy, lactic acidosis. Hyperkalemia. ID: Septic shock with pneumonia and possible dental infection. Nutrition: Malnourished. 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 Hold off on any feeding tonight. Lines: Right femoral CVC and lakhani catheter both placed 07/09/16 History of Present Illness Chief complaint: altered mentation. HPI: Ms. Scott is a 55 year old female with past medical history of hepatitis C, alcohol abuse, cirrhosis, alcoholic hepatitis. She had a recent admission to [facility] in May 2016 where she was treated for alcoholic hepatitis. Per family she is continuing to drink and has had a few beers over the weekend. The mother states that the patient seemed normal to her however the patient's mother is legally blind. She states that the patient started to become confused around 5 PM last night. States that patient has had a cough for the last few days. Otherwise she states that the patient had no complaints. Patient is currently altered and I am unable to get any history from her at this time. As such the history was supplemented by the medical record. Past Med Surg Social Fam HX - Past Medical History Medical history: cirrhosis, GERD, hepatitis, liver disease Psychiatric history: no psych history - Past Surgical History Surgical History: other - Social History Smoking Status: Current every day smoker Smokeless Tobacco Status: No Alcohol use: heavy Drug use: none - Family History Mother Living Status: Still Living Hx Family Cardiac Disorders: Yes Hx Family Cancer: Yes Hx Family Endocrine Disorder: Yes (diabetes) Father Living Status: Still Living Hx Family Cancer: Yes Medications and Allergies Vits #90/Iron Fum/FA [ Formula Tablet] 1 tab PO DAILY 09/29/15 [History] Propranolol [Inderal] 10 mg PO TID 30 Days 10/01/15 [Rx] Chlorhexidine Gluconate [Peridex] 15 ml MM TID 06/09/16 [History] Furosemide [Lasix] 20 mg PO BIDDIURETIC #0 tablet 06/13/16 [Rx] LORazepam [Ativan] 0.25 mg PO DAILY #14 tablet 06/13/16 [Rx] Lactulose [Enulose] 30 ml PO TID #0 06/13/16 [Rx] Magnesium Oxide [Mag-Ox] 800 mg PO BID #120 tablet 06/13/16 [Rx] Potassium Chloride 20 meq PO BID #60 tab.er.prt 06/13/16 [Rx] Rifaximin [Xifaxan] 400 mg PO BID 90 Days 06/13/16 [Rx] Spironolactone [Aldactone] 100 mg PO DAILY #60 tablet 06/13/16 [Rx] Ursodiol 300 mg PO BID #60 capsule 06/13/16 [Rx] Naltrexone HCl [Revia] 50 mg PO 07/09/16 [History] Penicillin VK [Pencillin VK] 500 mg PO BID 07/09/16 [History] Allergies No Known Allergies Allergy (Verified 09/29/15 15:44) ROS unobtainable: due to mental status All Systems: A 10-system review of systems was performed and is negative for pertinent findings except as documented above in the HPI. Physical Examination Vital Signs: Vital Signs, Last 4 Hours Pulse Resp BP Pulse Ox 07/09/16 15:13 154 24 95/81 97 07/09/16 14:09 156 30 131/45 07/09/16 13:31 152 28 116/106 98 07/09/16 13:25 160 26 100/62 07/09/16 13:00 149 22 83/38 07/09/16 12:23 149 22 69/50 96 Gen.: This is a well-developed well-nourished 55-year-old female who is toxic in appearance she is actively having rigors at this time. Appears to be in moderate distress. Head: Head is normocephalic and atraumatic EENT: She has scleral icterus, pupils are equally round reactive to light and accommodation. Normal external appearance of ears nose and eyes. She has very poor dentition. Unable to examine the posterior pharynx at this time as she is requiring BiPAP. The neck is supple without mass or thyromegaly no masses or cervical lymphadenopathy palpable on exam. Heart: Regular rhythm but she is in sinus tachycardia issues ranging from 140s to 150s while in the room. No murmurs rubs or gallops. No JVD. Lungs: Bilateral coarse breath sounds and rhonchi throughout the lung porter. She has a increased effort of breathing but no paradoxical movement of the abdomen or accessory muscles in use at this time. Abdomen: Obese soft, distended, nontender to palpation. No caput medusa. Musculoskeletal: Grossly normal for age no gross foreign noted. Integument: Markedly jaundiced. She does have some spider hemangiomas. No rashes or lesions noted. Results - Laboratory Findings CBC and BMP: 07/09/16 10:35 07/09/16 10:35 PT/INR, D-dimer PT 39.1 Seconds (9.4-12.1) H 07/09/16 10:35 Abnormal lab findings: Abnormal lab results WBC 11.5 K/mcL (4.3-11.1) H 07/09/16 10:35 RBC 3.50 M/mcL (3.82-4.97) L 07/09/16 10:35 MCV 102.0 fL (83.0-100.0) H D 07/09/16 10:35 MCH 35.7 pg (28.0-33.3) H 07/09/16 10:35 RDW 16.0 % (11.5-14.5) H 07/09/16 10:35 Plt Count 55 K/mcL (140-400) L 07/09/16 10:35 Band Neutrophils % 48.0 % (0-4) H 07/09/16 10:35 Neutrophils # 10.1 K/mcL (1.6-8.9) H 07/09/16 10:35 Lymphocytes # 0.5 K/mcL (0.6-4.6) L 07/09/16 10:35 Nucleated RBCs/100 WBC 1.3 /100 WBC (0) H 07/09/16 10:35 Reactive Lymphocytes Present (Not Present) A 07/09/16 10:35 Toxic Granulation Present (Not Present) A 07/09/16 10:35 Toxic Vacuolation Present (Not Present) A 07/09/16 10:35 Dohle Bodies Present (Not Present) A 07/09/16 10:35 Platelet Estimate Decreased (Normal) L 07/09/16 10:35 Poikilocytosis 1+ (Not Present) A 07/09/16 10:35 Anisocytosis 1+ (Not Present) A 07/09/16 10:35 Macrocytosis Present (Not Present) A 07/09/16 10:35 Acanthocytes (Spur) 3+ (Not Present) A 07/09/16 10:35 PT 39.1 Seconds (9.4-12.1) H 07/09/16 10:35 APTT 38.3 Seconds (26.0-36.0) H 07/09/16 10:35 VBG pCO2 24 mmHg (41-51) L 07/09/16 10:10 VBG pO2 80 mmHg (25-40) H 07/09/16 10:10 VBG HCO3 12.7 mEq/L (21-27) L 07/09/16 10:10 Sodium 133 mEq/L (136-145) L 07/09/16 10:35 Potassium 5.3 mEq/L (3.5-4.5) H 07/09/16 10:35 Carbon Dioxide 14 mEq/L (19-29) L 07/09/16 10:35 BUN 75 mg/dL (7-20) H 07/09/16 10:35 Creatinine 6.42 mg/dL (0.57-1.11) H 07/09/16 10:35 Est GFR ( Amer) 8 (> 60) L 07/09/16 10:35 Est GFR (Non-Af Amer) 7 (> 60) L 07/09/16 10:35 Lactic Acid 6.8 mmol/L (0.5-2.2) H* 07/09/16 12:46 Calcium 7.9 mg/dL (8.6-10.8) L 07/09/16 10:35 Total Bilirubin 18.3 mg/dL (0.2-1.2) H 07/09/16 10:35 Direct Bilirubin 12.7 mg/dL (0.0-0.5) H 07/09/16 10:35 Indirect Bilirubin 5.6 mg/dL (0.0-1.2) H 07/09/16 10:35 AST 117 Units/L (5-34) H 07/09/16 10:35 ALT 108 Units/L (0-55) H 07/09/16 10:35 Troponin I 0.25 ng/mL (0-0.03) H* 07/09/16 10:35 Serum Total Protein 5.8 g/dL (6.0-8.3) L 07/09/16 10:35 Albumin 1.5 g/dL (3.5-5.0) L 07/09/16 10:35 Globulin 4.3 g/dL (2.4-3.5) H 07/09/16 10:35 Albumin/Globulin Ratio 0.3 (1.1-2.2) L 07/09/16 10:35 Ur Specimen Adequacy See below A 07/09/16 09:52 Urine Color Susy (Yellow) A 07/09/16 09:52 Urine Clarity Turbid (Clear) A 07/09/16 09:52 Urine Glucose (UA) 100 mg/dL (Normal) H 07/09/16 09:52 Urine Ketones Trace mg/dL (Negative) H 07/09/16 09:52 Urine Nitrite Positive (Negative) A 07/09/16 09:52 Urine Bilirubin Large (Negative) H 07/09/16 09:52 Ur Leukocyte Esterase Small (Negative) H 07/09/16 09:52 Urine Microscopic WBC 30-50 per hpf (0-3) H 07/09/16 09:52 Ur Squamous Epith Cells Many per lpf (None-Few) H 07/09/16 09:52 Urine Bacteria Many per hpf (None-Few) H 07/09/16 09:52 Other Casts See Below A 07/09/16 09:52 Ur Culture Indicated? YES (NO) A 07/09/16 09:52 - VTE Reasons for not Prescribing Prophylaxis: Medical contraindication <Amita Alston - Last Filed: 07/10/16 06:33> Date of Encounter: 07/10/16 History of Present Illness HPI: Ms. Scott is a 55 year old female All Systems: A 10-system review of systems was performed and is negative for pertinent findings except as documented above in the HPI. Physical Examination Vital Signs: Vital Signs, Last 4 Hours Pulse Resp BP Pulse Ox 07/09/16 16:05 24 98/72 07/09/16 15:47 78 24 103/90 99 07/09/16 15:13 154 24 95/81 97 07/09/16 15:00 167 24 101/85 97 07/09/16 14:09 156 30 131/45 07/09/16 13:31 152 28 116/106 98 07/09/16 13:25 160 26 100/62 07/09/16 13:00 149 22 83/38 Results - Laboratory Findings CBC and BMP: 07/10/16 04:02 07/10/16 04:02 PT/INR, D-dimer PT 39.1 Seconds (9.4-12.1) H 07/09/16 10:35 Abnormal lab findings: Abnormal lab results WBC 11.5 K/mcL (4.3-11.1) H 07/09/16 10:35 RBC 3.50 M/mcL (3.82-4.97) L 07/09/16 10:35 MCV 102.0 fL (83.0-100.0) H D 07/09/16 10:35 MCH 35.7 pg (28.0-33.3) H 07/09/16 10:35 RDW 16.0 % (11.5-14.5) H 07/09/16 10:35 Plt Count 55 K/mcL (140-400) L 07/09/16 10:35 Band Neutrophils % 48.0 % (0-4) H 07/09/16 10:35 Neutrophils # 10.1 K/mcL (1.6-8.9) H 07/09/16 10:35 Lymphocytes # 0.5 K/mcL (0.6-4.6) L 07/09/16 10:35 Nucleated RBCs/100 WBC 1.3 /100 WBC (0) H 07/09/16 10:35 Reactive Lymphocytes Present (Not Present) A 07/09/16 10:35 Toxic Granulation Present (Not Present) A 07/09/16 10:35 Toxic Vacuolation Present (Not Present) A 07/09/16 10:35 Dohle Bodies Present (Not Present) A 07/09/16 10:35 Platelet Estimate Decreased (Normal) L 07/09/16 10:35 Poikilocytosis 1+ (Not Present) A 07/09/16 10:35 Anisocytosis 1+ (Not Present) A 07/09/16 10:35 Macrocytosis Present (Not Present) A 07/09/16 10:35 Acanthocytes (Spur) 3+ (Not Present) A 07/09/16 10:35 PT 39.1 Seconds (9.4-12.1) H 07/09/16 10:35 APTT 38.3 Seconds (26.0-36.0) H 07/09/16 10:35 VBG pCO2 24 mmHg (41-51) L 07/09/16 10:10 VBG pO2 80 mmHg (25-40) H 07/09/16 10:10 VBG HCO3 12.7 mEq/L (21-27) L 07/09/16 10:10 Sodium 133 mEq/L (136-145) L 07/09/16 10:35 Potassium 5.3 mEq/L (3.5-4.5) H 07/09/16 10:35 Carbon Dioxide 14 mEq/L (19-29) L 07/09/16 10:35 BUN 75 mg/dL (7-20) H 07/09/16 10:35 Creatinine 6.42 mg/dL (0.57-1.11) H 07/09/16 10:35 Est GFR ( Amer) 8 (> 60) L 07/09/16 10:35 Est GFR (Non-Af Amer) 7 (> 60) L 07/09/16 10:35 Lactic Acid 6.8 mmol/L (0.5-2.2) H* 07/09/16 12:46 Calcium 7.9 mg/dL (8.6-10.8) L 07/09/16 10:35 Total Bilirubin 18.3 mg/dL (0.2-1.2) H 07/09/16 10:35 Direct Bilirubin 12.7 mg/dL (0.0-0.5) H 07/09/16 10:35 Indirect Bilirubin 5.6 mg/dL (0.0-1.2) H 07/09/16 10:35 AST 117 Units/L (5-34) H 07/09/16 10:35 ALT 108 Units/L (0-55) H 07/09/16 10:35 Troponin I 0.25 ng/mL (0-0.03) H* 07/09/16 10:35 Serum Total Protein 5.8 g/dL (6.0-8.3) L 07/09/16 10:35 Albumin 1.5 g/dL (3.5-5.0) L 07/09/16 10:35 Globulin 4.3 g/dL (2.4-3.5) H 07/09/16 10:35 Albumin/Globulin Ratio 0.3 (1.1-2.2) L 07/09/16 10:35 Ur Specimen Adequacy See below A 07/09/16 09:52 Urine Color Susy (Yellow) A 07/09/16 09:52 Urine Clarity Turbid (Clear) A 07/09/16 09:52 Urine Glucose (UA) 100 mg/dL (Normal) H 07/09/16 09:52 Urine Ketones Trace mg/dL (Negative) H 07/09/16 09:52 Urine Nitrite Positive (Negative) A 07/09/16 09:52 Urine Bilirubin Large (Negative) H 07/09/16 09:52 Ur Leukocyte Esterase Small (Negative) H 07/09/16 09:52 Urine Microscopic WBC 30-50 per hpf (0-3) H 07/09/16 09:52 Ur Squamous Epith Cells Many per lpf (None-Few) H 07/09/16 09:52 Urine Bacteria Many per hpf (None-Few) H 07/09/16 09:52 Other Casts See Below A 07/09/16 09:52 Ur Culture Indicated? YES (NO) A 07/09/16 09:52 - Attending Attestation I examined this patient and my medical decision-making was reviewed with the MICROFILM CAMERA OPERATOR/PA/Advanced Practice Nurse/Resident Physician. I agree with the documented findings, disposition and treatment plan as described except to the extent set forth below. Patient seen and examined. Labs, radiology, chart personally reviewed. Patient was assessed in the emergency room. 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 Discussed with the mother at the bedside as well as rest of the family patient is DNR comfort care DNI, however they still want vasopressor for at least next 24 hours. We will consult palliative. Cardiovascular: Shock which is multifactorial most likely septic and due to her liver disease she is in vasodilatory shock with lactic acidosis GI: Nothing by mouth for now and steroid due to heart: Acute hepatitis Heme: Coagulopathy from underlying liver disease ID: Continue antibiotics and plan to de-escalation Renal; urine out put and renal funtion reviewed. Acute kidney injury with poor prognosis. Endorcine: blood glucose is monitored Lines: all lines checked and no evidence of infections Skin: skin care to prevent pressure ulcers per nursing routine care Overall very poor prognosis and family understand that.
[2016-07-09] MEDS ORDERED: niCARdipine 20 MG/200 ML MLS IVC SCH (15:30)
[2016-07-09] MEDS ORDERED: Vancomycin 1,500 MG in D5% in Water 250 ML IVPB ONE (16:00)
[2016-07-09] MEDS ORDERED: Levofloxacin 500 MG/100 ML 500 MG/100 ML BAG IVPB SCH (16:00)
[2016-07-09] MEDS ORDERED: Dextrose Gel 15 GM PO PRN ×2 (16:20)
[2016-07-09] MEDS ORDERED: D5% in Water 1,000 ML IVC PRN (16:20)
[2016-07-09] MEDS ORDERED: *HR* Dextrose 50 % in Water (Syg) 50 ML SYRINGE IVP PRN (16:20)
[2016-07-09] MEDS: Piperacillin/Tazobactam 3.375 GM in D5% in Water (Mini-Bag+) 100 ML IVPB SCH (19:43)
[2016-07-09 19:54] LABS: Hematocrit 37.5 % (35.3-44.9); Hemoglobin 12.9 g/dL (11.5-15.4); Mean Corpuscular HGB Conc 34.4 g/dL (31.6-35.5); Mean Corpuscular Hemoglobin 35.1 pg (28.0-33.3); Mean Corpuscular Volume 102.2 fL (83.0-100.0); Mean Platelet Volume 11.1 fL (9.4-12.4); Red Blood Count 3.67 M/mcL (3.82-4.97); Red Cell Distribution Width 15.9 % (11.5-14.5); VBG HCO3 14.4 mEq/L (21-27); VBG PH 7.32 pH Units (7.32-7.42)
[2016-07-09] MEDS: PrednisoLONE Oral Soln 15 MG/5 ML UDC PO SCH (19:54)
[2016-07-09 19:55] LABS: Platelet Count 63 K/mcL (140-400)
[2016-07-09 20:08] LABS: Albumin/Globulin Ratio 0.3 (1.1-2.2); Calcium 8.2 mg/dL (8.6-10.8); Globulin 4.6 g/dL (2.4-3.5); Total Protein 6.1 g/dL (6.0-8.3)
[2016-07-09 20:09] LABS: Albumin 1.5 g/dL (3.5-5.0)
[2016-07-09 20:10] LABS: Potassium 5.3 mEq/L (3.5-4.5)
[2016-07-09] MEDS: Ipratropium/Albuterol Neb 3 ML IH SCH (21:50)
[2016-07-09] MEDS: Chlorhexidine Rinse 15 ML MOUTHWASH MM SCH (22:09)
[2016-07-09] MEDS: Lactulose Oral Soln 20 GM/30 ML UDC PO SCH (22:10)
[2016-07-10] MEDS: Ipratropium/Albuterol Neb 3 ML IH SCH ×2 (03:45→09:54)
[2016-07-10 04:21] LABS: Eosinophils % 0.1 %; Hemoglobin 13.8 g/dL (11.5-15.4)
[2016-07-10 04:23] LABS: Basophils % 0.1 %; Hematocrit 40.7 % (35.3-44.9); Immature Platelets 7.6 % (1.1-6.1); Lymphocytes # 0.3 K/mcL (0.6-4.6); Lymphocytes % 2.6 %; Mean Corpuscular HGB Conc 33.9 g/dL (31.6-35.5); Mean Corpuscular Hemoglobin 34.8 pg (28.0-33.3); Mean Corpuscular Volume 102.8 fL (83.0-100.0); Mean Platelet Volume 11.3 fL (9.4-12.4); Monocytes # 0.3 K/mcL (0.0-1.3); Monocytes % 2.3 %; Neutrophils # 11.7 K/mcL (1.6-8.9); Nucleated Red Blood Cells 3.3 /100 WBC (0); Red Blood Count 3.96 M/mcL (3.82-4.97); Red Cell Distribution Width 15.9 % (11.5-14.5); Segmented Neutrophils % 91.9 %
[2016-07-10 04:23] LABS: INR 3.6; Prothrombin Time 40.7 Seconds (9.4-12.1)
[2016-07-10 04:32] LABS: Platelet Count 49 K/mcL (140-400)
[2016-07-10 04:34] LABS: Albumin/Globulin Ratio 0.3 (1.1-2.2); Bilirubin,Direct 12.8 mg/dL (0.0-0.5); Calcium 7.9 mg/dL (8.6-10.8); Globulin 4.5 g/dL (2.4-3.5); Ionized Calcium 0.98 mmol/L (1.15-1.35); Magnesium 1.7 mg/dL (1.6-2.6); Phosphorous 6.9 mg/dL (2.3-4.7); Potassium 5.6 mEq/L (3.5-4.5)
[2016-07-10 04:44] LABS: Acanthocytes 1+ (Not Present); Anisocytosis 1+ (Not Present); Basophilic Stippling 1+ (Not Present); Macrocytosis Present (Not Present); Polychromasia 1+ (Not Present); Toxic Granulation Present (Not Present)
[2016-07-10 04:45] LABS: Platelet Estimate Decreased (Normal)
[2016-07-10 04:49] LABS: Albumin 1.5 g/dL (3.5-5.0); Bilirubin,Total 18.1 mg/dL (0.2-1.2)
--- NOTE | 2016-07-10 04:52 | Event Note ---
Date of Encounter: 07/10/16 Time of Encounter: 04:49 Spoke with the patient's mother bedside. We discussed the patient's current condition. The patient remained persistently hypotensive despite increases in norepinephrine. The patient's mother expressed wishes not to further escalate care beyond the current treatment and that if the current treatment is no longer working and she wishes to make sure the patient is comfortable. We will continue with levophed until maxed out but per the family's wishes we will not add more pressors.
[2016-07-10] MEDS ORDERED: Sodium Bicarbonate 50 MEQ in 0.45 % Sodium Chloride 1,000 ML IVC SCH (05:00)
[2016-07-10] MEDS: Norepinephrine 4 MG in D5% in Water 250 ML IVC SCH ×3 (05:00→12:46)
[2016-07-10] MEDS ORDERED: Sodium Bicarbonate 150 MEQ in D5% in Water 1,000 ML IVC SCH (05:00)
[2016-07-10] MEDS: Piperacillin/Tazobactam 3.375 GM in D5% in Water (Mini-Bag+) 100 ML IVPB SCH (05:55)
[2016-07-10] MEDS: Chlorhexidine Rinse 15 ML MOUTHWASH MM SCH (08:21)
[2016-07-10] MEDS: PrednisoLONE Oral Soln 15 MG/5 ML UDC PO SCH (08:22)
[2016-07-10] MEDS: Lactulose Oral Soln 20 GM/30 ML UDC PO SCH (08:22)
[2016-07-10] MEDS ORDERED: Calcium Gluconate 2,000 MG in D5% in Water 100 ML IVPB ONE (08:41)
[2016-07-10] MEDS ORDERED: Thiamine (B-1) 100 MG TABLET PO SCH (09:00)
[2016-07-10] MEDS ORDERED: Pantoprazole 40 MG VIAL IVPB SCH (09:00)
[2016-07-10] MEDS ORDERED: *HR* Morphine 2 MG/ML SYRINGE IVP PRN ×2 (09:01→11:13)
--- NOTE | 2016-07-10 09:05 | Pulmonology Progress Note ---
<Elder Choi - Last Filed: 07/10/16 14:28> Date of Encounter: 07/10/16 Time of Encounter: 09:02 Assessment and Plan (1) Septic shock Current Visit: Yes Status: Acute tachycardia, leukocytosis source of infection likely secondary to pneumonia, possible aspiration. CXR showed multifocal pneumonia Lactic acid last checked yesterday was 5.9, trending down. organ dysfunction includes renal failure, hypoxemia, liver failure Plan: Broad spectrum antibiotics with vanc, zosyn, levaquin being renally dosed. Patient is on Levophed to maintain MAP >65 blood cultures pending (2) Bacterial pneumonia Current Visit: Yes Status: Acute plan as above (3) Alcoholic hepatitis Current Visit: Yes Status: Acute patient has past hospital admission for alcoholic hepatitis. patient continues to drink. Current discriminate function is 149.7 giving prednisolone Qualifiers: Ascites presence: with ascites Qualified Code(s): K70.11 - Alcoholic hepatitis with ascites (4) Cirrhosis Current Visit: Yes Status: Acute etiology multifactorial secondary to alcohol abuse, hep C she continues to drink alcohol MELD score is 40 Child muse class C Qualifiers: Hepatic cirrhosis type: alcoholic cirrhosis Ascites presence: with ascites Qualified Code(s): K70.31 - Alcoholic cirrhosis of liver with ascites (5) Hepatitis C Current Visit: No Status: Chronic as above Qualifiers: Viral hepatitis chronicity: chronic Hepatic coma status: without hepatic coma Qualified Code(s): B18.2 - Chronic viral hepatitis C (6) Acute renal failure Current Visit: Yes Status: Acute continue to monitor. renally dose all meds avoid nephrotoxins as much as possible Qualifiers: Acute renal failure type: unspecified Qualified Code(s): N17.9 - Acute kidney failure, unspecified (7) Hyperkalemia Current Visit: Yes Status: Acute received 2g calcim gluconate today continue to monitor. (8) Leukocytosis Current Visit: Yes Status: Acute mild leukocytosis. continue to monitor. Qualifiers: Leukocytosis type: unspecified Qualified Code(s): D72.829 - Elevated white blood cell count, unspecified (9) Hyperbilirubinemia Current Visit: Yes Status: Acute secondary to alcohol abuse/cirrhosis (10) Metabolic acidosis Current Visit: Yes Status: Acute continue bicarb drip (11) Macrocytosis Current Visit: Yes Status: Acute secondary to alcohol abuse (12) Goals of care, counseling/discussion Current Visit: Yes Status: Acute patient's mother was told that prognosis was extremely poor. continue ongoing discussions with palliative care. patient's mother agreed to use max dose levophed, but not have any further pressors added. (13) MODS (multiple organ dysfunction syndrome) Current Visit: Yes Status: Acute liver, renal, respiratory (14) DVT prophylaxis Current Visit: No Status: Acute no pharmacologic dvt prophylaxis due to elvated INR protonix for GI prophylaxis. Neuro: metabolic encelophalopathy, likely secondary to renal and liver failure HEENT: poor dentition. CV: septick shock. continue max dose levophed to maintain MAP above 65 Pulm: aspiration pneumonia, broad spectrum antibiotics. continue BiPAP GI: cirrhosis, Hep C, alcoholic hepatitis. continue prednisolone, rifaximin, laculose. MSK: no issues renal: acute renal failure. will continue to monitor. elevated K, calcium gluconate given Heme/onc: elevated INR from renal failure endocrine: continue to monitor blood glucose integ: routine care per ICU protocol ID: septic shock, multifocal pneumonia Subjective Principal diagnosis: septic shock Interval history: 55 YoF evaluated at bedside. Patient remains on BiPAP, and is currently on the max dose of levophed. She is asleep. Patient's mother is at bedside and is talking to palliative care staff. Objective PUL Vital signs: Last Vital Signs Temp 98.7 F 07/10/16 07:10 Pulse 100 07/10/16 06:01 Resp 39 07/10/16 06:01 BP 93/67 07/10/16 06:01 Pulse Ox 93 07/10/16 06:01 General appearance: no acute distress, asleep, other (on BiPAP) Eyes: icteric (severely icteric with generalized jaundice) Auscultation: bilateral: wheezes, rhonchi Cardiovascular: other (tachycardic) Gastrointestinal: hypoactive bowel sounds, soft, non-tender (distended) Integumentary: other (jaundiced) Extremities: other (+1 lower extremity edema. ) Results - Laboratory Findings CBC and BMP: 07/10/16 04:02 07/10/16 04:02 PT/INR, D-dimer PT 40.7 Seconds (9.4-12.1) H 07/10/16 04:00 Abnormal lab findings: Abnormal lab results WBC 12.7 K/mcL (4.3-11.1) H 07/10/16 04:02 MCV 102.8 fL (83.0-100.0) H 07/10/16 04:02 MCH 34.8 pg (28.0-33.3) H 07/10/16 04:02 RDW 15.9 % (11.5-14.5) H 07/10/16 04:02 Plt Count 49 K/mcL (140-400) L 07/10/16 04:02 Band Neutrophils % 48.0 % (0-4) H 07/09/16 10:35 Neutrophils # 11.7 K/mcL (1.6-8.9) H 07/10/16 04:02 Lymphocytes # 0.3 K/mcL (0.6-4.6) L 07/10/16 04:02 Nucleated RBCs/100 WBC 3.3 /100 WBC (0) H 07/10/16 04:02 Reactive Lymphocytes Present (Not Present) A 07/09/16 10:35 Toxic Granulation Present (Not Present) A 07/10/16 04:02 Toxic Vacuolation Present (Not Present) A 07/09/16 10:35 Dohle Bodies Present (Not Present) A 07/09/16 10:35 Platelet Estimate Decreased (Normal) L 07/10/16 04:02 Immature Plt Fraction 7.6 % (1.1-6.1) H 07/10/16 04:02 Polychromasia 1+ (Not Present) A 07/10/16 04:02 Poikilocytosis 1+ (Not Present) A 07/09/16 10:35 Basophilic Stippling 1+ (Not Present) A 07/10/16 04:02 Anisocytosis 1+ (Not Present) A 07/10/16 04:02 Macrocytosis Present (Not Present) A 07/10/16 04:02 Acanthocytes (Spur) 1+ (Not Present) A 07/10/16 04:02 PT 40.7 Seconds (9.4-12.1) H 07/10/16 04:00 APTT 38.3 Seconds (26.0-36.0) H 07/09/16 10:35 VBG pCO2 28 mmHg (41-51) L 07/09/16 19:44 VBG pO2 51 mmHg (25-40) H 07/09/16 19:44 VBG HCO3 14.4 mEq/L (21-27) L 07/09/16 19:44 Sodium 134 mEq/L (136-145) L 07/10/16 04:02 Potassium 5.6 mEq/L (3.5-4.5) H 07/10/16 04:02 Carbon Dioxide 8 mEq/L (19-29) L* 07/10/16 04:02 BUN 86 mg/dL (7-20) H 07/10/16 04:02 Creatinine 7.33 mg/dL (0.57-1.11) H 07/10/16 04:02 Est GFR ( Amer) 7 (> 60) L 07/10/16 04:02 Est GFR (Non-Af Amer) 6 (> 60) L 07/10/16 04:02 Glucose 52 mg/dL (70-99) L 07/10/16 04:02 POC Glucose 106 (58-89) H 07/09/16 16:38 Calculated Osmolality 302 (280-300) H 07/10/16 04:02 Lactic Acid 5.9 mmol/L (0.5-2.2) H* 07/09/16 19:44 Calcium 7.9 mg/dL (8.6-10.8) L 07/10/16 04:02 Ionized Calcium 0.98 mmol/L (1.15-1.35) L 07/10/16 04:02 Phosphorus 6.9 mg/dL (2.3-4.7) H 07/10/16 04:02 Total Bilirubin 18.1 mg/dL (0.2-1.2) H 07/10/16 04:02 Direct Bilirubin 12.8 mg/dL (0.0-0.5) H 07/10/16 04:02 Indirect Bilirubin 5.6 mg/dL (0.0-1.2) H 07/09/16 10:35 AST 173 Units/L (5-34) H 07/10/16 04:02 ALT 113 Units/L (0-55) H 07/10/16 04:02 Troponin I 0.25 ng/mL (0-0.03) H* 07/09/16 10:35 Albumin 1.5 g/dL (3.5-5.0) L 07/10/16 04:02 Globulin 4.5 g/dL (2.4-3.5) H 07/10/16 04:02 Albumin/Globulin Ratio 0.3 (1.1-2.2) L 07/10/16 04:02 Lipase 117 Units/L (8-78) H 07/09/16 19:44 Ur Specimen Adequacy See below A 07/09/16 09:52 Urine Color Susy (Yellow) A 07/09/16 09:52 Urine Clarity Turbid (Clear) A 07/09/16 09:52 Urine Glucose (UA) 100 mg/dL (Normal) H 07/09/16 09:52 Urine Ketones Trace mg/dL (Negative) H 07/09/16 09:52 Urine Nitrite Positive (Negative) A 07/09/16 09:52 Urine Bilirubin Large (Negative) H 07/09/16 09:52 Ur Leukocyte Esterase Small (Negative) H 07/09/16 09:52 Urine Microscopic WBC 30-50 per hpf (0-3) H 07/09/16 09:52 Ur Squamous Epith Cells Many per lpf (None-Few) H 07/09/16 09:52 Urine Bacteria Many per hpf (None-Few) H 07/09/16 09:52 Other Casts See Below A 07/09/16 09:52 Ur Culture Indicated? YES (NO) A 07/09/16 09:52 - Clinical Findings Intake & Output: Intake & Output 07/09/16 07/10/16 07/10/16 23:59 07:59 15:59 Intake Total 345 / 345 829 / 829 Output Total 50 / 50 25 / 25 Balance 295 / 295 804 / 804 Weight 83.9 kg - VTE Reasons for not Prescribing Prophylaxis: Medical contraindication Consult Discharge Plan - Plan Referrals: NO,PCP [Non-Partnered Physician] - <Amita Alston - Last Filed: 07/10/16 16:32> Date of Encounter: 07/10/16 Objective PUL Vital signs: Last Vital Signs Temp 98.7 F 07/10/16 11:43 Pulse 93 07/10/16 13:00 Resp 27 07/10/16 13:00 BP 104/27 07/10/16 13:00 Pulse Ox 86 07/10/16 13:00 Results - Laboratory Findings CBC and BMP: 07/10/16 04:02 07/10/16 04:02 PT/INR, D-dimer PT 40.7 Seconds (9.4-12.1) H 07/10/16 04:00 Abnormal lab findings: Abnormal lab results WBC 12.7 K/mcL (4.3-11.1) H 07/10/16 04:02 MCV 102.8 fL (83.0-100.0) H 07/10/16 04:02 MCH 34.8 pg (28.0-33.3) H 07/10/16 04:02 RDW 15.9 % (11.5-14.5) H 07/10/16 04:02 Plt Count 49 K/mcL (140-400) L 07/10/16 04:02 Band Neutrophils % 48.0 % (0-4) H 07/09/16 10:35 Neutrophils # 11.7 K/mcL (1.6-8.9) H 07/10/16 04:02 Lymphocytes # 0.3 K/mcL (0.6-4.6) L 07/10/16 04:02 Nucleated RBCs/100 WBC 3.3 /100 WBC (0) H 07/10/16 04:02 Reactive Lymphocytes Present (Not Present) A 07/09/16 10:35 Toxic Granulation Present (Not Present) A 07/10/16 04:02 Toxic Vacuolation Present (Not Present) A 07/09/16 10:35 Dohle Bodies Present (Not Present) A 07/09/16 10:35 Platelet Estimate Decreased (Normal) L 07/10/16 04:02 Immature Plt Fraction 7.6 % (1.1-6.1) H 07/10/16 04:02 Polychromasia 1+ (Not Present) A 07/10/16 04:02 Poikilocytosis 1+ (Not Present) A 07/09/16 10:35 Basophilic Stippling 1+ (Not Present) A 07/10/16 04:02 Anisocytosis 1+ (Not Present) A 07/10/16 04:02 Macrocytosis Present (Not Present) A 07/10/16 04:02 Acanthocytes (Spur) 1+ (Not Present) A 07/10/16 04:02 PT 40.7 Seconds (9.4-12.1) H 07/10/16 04:00 APTT 38.3 Seconds (26.0-36.0) H 07/09/16 10:35 VBG pCO2 28 mmHg (41-51) L 07/09/16 19:44 VBG pO2 51 mmHg (25-40) H 07/09/16 19:44 VBG HCO3 14.4 mEq/L (21-27) L 07/09/16 19:44 Sodium 134 mEq/L (136-145) L 07/10/16 04:02 Potassium 5.6 mEq/L (3.5-4.5) H 07/10/16 04:02 Carbon Dioxide 8 mEq/L (19-29) L* 07/10/16 04:02 BUN 86 mg/dL (7-20) H 07/10/16 04:02 Creatinine 7.33 mg/dL (0.57-1.11) H 07/10/16 04:02 Est GFR ( Amer) 7 (> 60) L 07/10/16 04:02 Est GFR (Non-Af Amer) 6 (> 60) L 07/10/16 04:02 Glucose 52 mg/dL (70-99) L 07/10/16 04:02 POC Glucose 106 (58-89) H 07/09/16 16:38 Calculated Osmolality 302 (280-300) H 07/10/16 04:02 Lactic Acid 5.9 mmol/L (0.5-2.2) H* 07/09/16 19:44 Calcium 7.9 mg/dL (8.6-10.8) L 07/10/16 04:02 Ionized Calcium 0.98 mmol/L (1.15-1.35) L 07/10/16 04:02 Phosphorus 6.9 mg/dL (2.3-4.7) H 07/10/16 04:02 Total Bilirubin 18.1 mg/dL (0.2-1.2) H 07/10/16 04:02 Direct Bilirubin 12.8 mg/dL (0.0-0.5) H 07/10/16 04:02 Indirect Bilirubin 5.6 mg/dL (0.0-1.2) H 07/09/16 10:35 AST 173 Units/L (5-34) H 07/10/16 04:02 ALT 113 Units/L (0-55) H 07/10/16 04:02 Troponin I 0.25 ng/mL (0-0.03) H* 07/09/16 10:35 Albumin 1.5 g/dL (3.5-5.0) L 07/10/16 04:02 Globulin 4.5 g/dL (2.4-3.5) H 07/10/16 04:02 Albumin/Globulin Ratio 0.3 (1.1-2.2) L 07/10/16 04:02 Lipase 117 Units/L (8-78) H 07/09/16 19:44 Ur Specimen Adequacy See below A 07/09/16 09:52 Urine Color Susy (Yellow) A 07/09/16 09:52 Urine Clarity Turbid (Clear) A 07/09/16 09:52 Urine Glucose (UA) 100 mg/dL (Normal) H 07/09/16 09:52 Urine Ketones Trace mg/dL (Negative) H 07/09/16 09:52 Urine Nitrite Positive (Negative) A 07/09/16 09:52 Urine Bilirubin Large (Negative) H 07/09/16 09:52 Ur Leukocyte Esterase Small (Negative) H 07/09/16 09:52 Urine Microscopic WBC 30-50 per hpf (0-3) H 07/09/16 09:52 Ur Squamous Epith Cells Many per lpf (None-Few) H 07/09/16 09:52 Urine Bacteria Many per hpf (None-Few) H 07/09/16 09:52 Other Casts See Below A 07/09/16 09:52 Ur Culture Indicated? YES (NO) A 07/09/16 09:52 - Clinical Findings Intake & Output: Intake & Output 07/10/16 07/10/16 07/10/16 07:59 15:59 23:59 Intake Total 829 / 829 600 / 600 Output Total Balance 804 / 804 600 / 600 Weight 83.9 kg - Attending Attestation I examined this patient and my medical decision-making was reviewed with the COREMAKING MACHINE OPERATOR/PA/Advanced Practice Nurse/Resident Physician. I agree with the documented findings, disposition and treatment plan as described except to the extent set forth below. Patient seen and examined. Labs, radiology, chart personally reviewed. Agree with resident's history and physical, assessment, plan with following comments: SERVICE ESTABLISHMENT ATTENDANT: Patient mental status related and worsening Pulmonary: Patient is on BiPAP Cardiovascular: Septic shock GI: Nutrition per dietary and GI prophylaxis per routine Heme: Patient coagulopathic not candidate for heparin for DVT prophylaxis ID: Continue antibiotics and plan to de-escalation Renal; urine out put and renal funtion reviewed Endorcine: blood glucose is monitored Lines: all lines checked and no evidence of infections Skin: skin care to prevent pressure ulcers per nursing routine care Overall prognosis extremely poor and appreciate palliative care
[2016-07-10] MEDS ORDERED: Acetaminophen IV 1,000 MG/100 ML INFUS..BTL IVPB ONE (10:44)
[2016-07-10] MEDS ORDERED: Ketorolac 15 MG/ML VIAL IVP PRN (10:44)
--- NOTE | 2016-07-10 10:48 | Palliative - Consult Note ---
Date of Encounter: 07/10/16 Time of Encounter: 08:30 - Assessment and Plan (1) Dyspnea Current Visit: Yes Status: Acute Assessment and plan: Patient with tachypnea. Rate 32. Continue bipap, duonebs, antibiotics, supplemental O2, and turning every 2 hrs with HOB up. Continue to monitor. Qualifiers: Dyspnea type: unspecified Qualified Code(s): R06.00 - Dyspnea, unspecified (2) Acute hepatic encephalopathy Current Visit: Yes Status: Acute Assessment and plan: Current Ammonia level 39. Patient receiving lactulose. Patient not responding to name or pain. Eyes closed, bipap on. Resting quietly. Current AST 173, ALT 113. MELD Na is 47. Elevated bilirubun in the setting of jaundice. Continue supportive treatment. (3) Goals of care, counseling/discussion Current Visit: Yes Status: Acute Assessment and plan: Mother Pat at bedside, Reviewed patients current state. Patient with sepsis ( Lactic acid 5.9 & receiving Norepinephrine as 20 mcg). Pat has been here all night and desires to go home to eat and shower. She is patients POA and desires to continue current level care and not increase vasopressor support. Patient is DNRCC-A, DNI and is on Bipap for comfort and support. Will not escalate care as per Pats wishes. Pat plans to return to hospital later today and agrees to have the patient receive morphine IV for comfort and dyspnea as needed for comfort. Plan is to eventually transition to comfort care when Pat is ready. Will provide support and acetone recovery worker conducted bedside prayer. Will continue to work with family. (4) ETOH abuse Current Visit: No Status: Chronic (5) Pneumonia Current Visit: Yes Status: Acute Qualifiers: Pneumonia type: due to unspecified organism Laterality: bilateral Lung location: unspecified part of lung Qualified Code(s): J18.9 - Pneumonia, unspecified organism (6) Septic shock Current Visit: Yes Status: Acute Assessment and plan: Antibiotics and vaspressor support. Palliative-CN HPI - Data of Consult Patient: known to practice within the last 3 years Consult date: 07/10/16 Requesting Physician: Everhart. Crowe Primary Care Provider: Sai Rivas MD - Consult Narrative Palliative Care/Comfort Measures: Palliative care Reason for consult: Goals of Care History of present illness: Ms. Scott is a 55 year old female well known to the palliative care team. The patient has end stage liver disease and is not a candidate for a transplant due to her continued ETOH abuse. The patient has been admitted with sepsis requiring vasopressor therapy. Currently the patient is in ICU. Her mother Madeline is at bedside. The patient currently lives with her mother and she reports that over the past 2 days that the patient has become less responsive and confused. The patient is on bipap and receiving Norepinephrine gtt with a current blood pressure of 105/64. This palliative care consult is for goals of care discussion. CC: Amita Alston MD Past Med Surg Social Fam HX - Past Medical History Source: old records reviewed, obtained from family Medical history: cirrhosis, GERD, hepatitis, liver disease, other (Oral disease. Peridontal disease) Psychiatric history: no psych history - Past Surgical History Surgical History: other - Social History Smoking Status: Current every day smoker Smokeless Tobacco Status: No Alcohol use: heavy Drug use: none - Family History Mother Living Status: Still Living Hx Family Cardiac Disorders: Yes Hx Family Cancer: Yes Hx Family Endocrine Disorder: Yes (diabetes) Father Living Status: Still Living Hx Family Cancer: Yes Medications and Allergies Vits #90/Iron Fum/FA [ Formula Tablet] 1 tab PO DAILY 09/29/15 [History] Propranolol [Inderal] 10 mg PO TID 30 Days 10/01/15 [Rx] Chlorhexidine Gluconate [Peridex] 15 ml MM TID 06/09/16 [History] Furosemide [Lasix] 20 mg PO BIDDIURETIC #0 tablet 06/13/16 [Rx] LORazepam [Ativan] 0.25 mg PO DAILY #14 tablet 06/13/16 [Rx] Lactulose [Enulose] 30 ml PO TID #0 06/13/16 [Rx] Magnesium Oxide [Mag-Ox] 800 mg PO BID #120 tablet 06/13/16 [Rx] Potassium Chloride 20 meq PO BID #60 tab.er.prt 06/13/16 [Rx] Rifaximin [Xifaxan] 400 mg PO BID 90 Days 06/13/16 [Rx] Spironolactone [Aldactone] 100 mg PO DAILY #60 tablet 06/13/16 [Rx] Ursodiol 300 mg PO BID #60 capsule 06/13/16 [Rx] Naltrexone HCl [Revia] 50 mg PO 07/09/16 [History] Penicillin VK [Pencillin VK] 500 mg PO BID 07/09/16 [History] Allergies No Known Allergies Allergy (Verified 09/29/15 15:44) ROS unobtainable: due to mental status All systems: reviewed and no additional remarkable complaints except as stated ( AMS) - Constitutional Constitutional ROS PAL: fatigue - Respiratory Respiratory: dyspnea - Musculoskeletal Musculoskeletal ROS IM: muscle weakness - Integumentary ROS Integumentary: jaundice (scleral and skin) - Neurological Neurological ROS: weakness Palliative Care-Exam - Constitutional Vitals: Temp Pulse Resp BP Pulse Ox 98.7 F 103 27 132/104 91 07/10/16 07:10 07/10/16 08:00 07/10/16 09:55 07/10/16 09:55 07/10/16 09:55 General appearance: Present: no acute distress - Head Head Exam: Present: atraumatic, normal inspection, normocephalic - Eye Eye exam: Present: PERRL, scleral icterus Pupils: Present: PERRL - ENT ENT exam: Present: mucous membranes moist - Expanded ENT Exam Teeth exam: Present: gingival enlargement - Neck Neck exam: Present: normal inspection - Respiratory Respiratory exam: Present: rhonchi - Expanded Respiratory Exam Location: decreased breath sounds: Left, Right, Lower, rhonchi: Left, Right, Upper - Cardiovascular Cardiovascular exam: Present: RRR, +S1, +S2, tachycardia - Expanded Cardiovascular Exam Peripheral pulses: 1+: Femoral (L) PM, Femoral (R) PM, Posterior Tibialis (L), Posterior Tibialis (R), 2+: Carotid (L) PM, Carotid (R) PM, Radial (L), Radial ( R), Dorsalis Pedis (L) PM, Dorsalis Pedis (R) PM - GI/Abdominal Exam GI/Abdominal exam: Present: diminished bowel sounds, distended, soft - Rectal Rectal exam: Present: deferred - Catheter Type: Urethral (Bojorquez) - Extremities Exam Extremities exam: Present: pedal edema (2+ bilateral pedal) - Expanded Upper Extremities Exam General: Present: normal inspection - Neurological Exam Neurological exam: Present: altered (ETOH induced encephalopathy) - Psychiatric Psychiatric exam: Present: flat affect Additional comments: jaundiced - Skin Skin exam: Present: warm Internal Medicine - CN: Reslt - Labs CBC & Chem 7: 07/10/16 04:02 07/10/16 04:02 Labs: Short CBC 07/09/16 07/10/16 Range/Units 19:44 04:02 WBC 13.4 H 12.7 H (4.3-11.1) K/mcL Hgb 12.9 13.8 (11.5-15.4) g/dL Hct 37.5 40.7 (35.3-44.9) % Plt Count 63 L 49 L (140-400) K/mcL Neutrophils # 11.7 H (1.6-8.9) K/mcL BMP 07/09/16 07/10/16 19:44 04:02 Sodium 132 L 134 L Potassium 5.3 H 5.6 H Chloride 102 103 Carbon Dioxide 15 L 8 L* BUN 78 H 86 H Creatinine 6.66 H 7.33 H Glucose 103 H 52 L Calcium 8.2 L 7.9 L Liver Function 07/09/16 07/10/16 Range/Units 19:44 04:02 Total Bilirubin 20.0 H 18.1 H (0.2-1.2) mg/dL Direct Bilirubin 12.8 H (0.0-0.5) mg/dL AST 128 H 173 H (5-34) Units/L ALT 111 H 113 H (0-55) Units/L Alkaline Phosphatase 107 110 (38-126) Units/L Albumin 1.5 L 1.5 L (3.5-5.0) g/dL - ABG Interpretation ABG results: PT/INR, D-dimer PT 40.7 Seconds (9.4-12.1) H 07/10/16 04:00 Consult Discharge Plan - Plan Referrals: NO,PCP [Non-Partnered Physician] - Palliative Quality Palliative Quality: Screen for Code Status: Yes, Screen for Goals of Care: Yes, Screen for Pain: Yes, If Pain Regimen Started, Initiate Bowel Regimen: Yes, Screen for Nausea/Vomitting: Yes Code Status: 07/09/16 14:59 Resuscitation Status: Active [RES] Routine Comment: Resuscitation Status: [id number]
[2016-07-10] MEDS ORDERED: *HR* Metoprolol 5 MG/5 ML VIAL IVP PRN (10:57)
[2016-07-10] MEDS ORDERED: Vancomycin 500 MG in D5% in Water (Mini-Bag+) 100 ML IVPB ONE (11:00)
--- NOTE | 2016-07-10 14:04 | Event Note ---
Date of Encounter: 07/10/16 Time of Encounter: 13:35 Called by ICU nursing staff to assess patient. Mother Pat back at bedside. Patient unresponsive, eyes fixed, respiration agonal at 8 beats/min. with Bipap alarming. Patient actively dying. Mother requested to remove Bipap and stop IV drips and stop Norepinephrine gtt. Drips DC'd at 1340. Placed patient on NC O2 for comfort. Aniyah Cortes RN provided baptism singing and prayer conducted with family by compensation consultant Marcus Seaman. Family support provided and sat with family offering support. Patient and pronounce at 1345. Post mortem prep complete and family requested to remain with patient for period of mourning. Beside hospitality cart provided.
--- NOTE | 2016-07-10 14:25 | Death Note ---
<Elder Choi - Last Filed: 07/10/16 14:23> Discharge Sum: Summary - Date and Time Date of admission: 07/09/16 12:21 Date of : 07/10/16 Time of : 13:45 - Summary Details: at 1345 on rhythm strip patient was found to be in Asystole. patient was examined at bedside by resident. Patient had absent pulses, no electrical activity on EKG, pupils were fixed and dilated. Patient was pronounced at 1345. - Additional Data Confirmation of as documented by pronouncing clinician: no pulse, no respirations, no heart sounds, pupils fixed and dilated Family: at bedside (mother and sister) Attending/PCP notified?: No Attending physician: Amita Alston MD Was code activated?: No Autopsy requested?: No disability examiner notified?: No Organ bank notified?: No Advance directives: Yes Hospice patient?: No Discharge Sum: Diag - PCOD Probable Cause of : Cardiac arrest (secondary to multi organ dysfunction) Discharge Sum: Prov - Provider Primary care physician: Sai Rivas MD Admitting clinician: Sebastien Roland Attending physician on admission: Amita Alston Consults: 07/09/16 18:02 Consult to Palliative Care [CONS] Routine Comment: Consulting Provider: [facility] Reason for Consult: Patient with cirrhosis/ ETOH abuse. Admitted with Septic shock/ MODS. May be appropriate for inpatient hospice. Family discussing switching status to comfort care only. Thank you. Call Completed: No Pronouncing clinician: Rob Kimble <Amita Alston - Last Filed: 07/10/16 16:30> Discharge Sum: Summary - Date and Time Date of admission: 07/09/16 12:21 - Additional Data Attending physician: Amita Alston MD Discharge Sum: Prov - Provider Primary care physician: Sai Rivas MD Consults: 07/09/16 18:02 Consult to Palliative Care [CONS] Routine Comment: Consulting Provider: [facility] Reason for Consult: Patient with cirrhosis/ ETOH abuse. Admitted with Septic shock/ MODS. May be appropriate for inpatient hospice. Family discussing switching status to comfort care only. Thank you. Call Completed: No - Attending Attestation I examined this patient and my medical decision-making was reviewed with the RETAIL BRAND AMBASSADOR/PA/Advanced Practice Nurse/Resident Physician. I agree with the documented findings, disposition and treatment plan as described except to the extent set forth below. Patient's condition deteriorated and palliative care seen patient. Unfortunately she from septic shock as well as hepatic and renal failure.
[2016-07-10 15:25] VITALS: BP 104/27
[2016-07-10] MEDS ORDERED: Aminoglycoside Consult 1 EACH MC ONE (18:49)
== END 2016-07-10 18:50 | disposition expired | DRG 720 ==
LOC: EMEROO 09:30 → ICNU 12:21
PROVIDERS: ADMIT Internal Medicine Pulmonary Disease; ATTEND Internal Medicine Pulmonary Disease